=== PATIENT | female | born 1940 | race Caucasian/White ===

== ENCOUNTER 2019-01-19 08:11 | Outpatient (CLI) ==
[2016-05-25 17:54] VITALS: BMI 26.6
== END 2019-01-19 08:12 | disposition home or self-care (01) ==
LOC: LAB 08:11
PROVIDERS: ATTEND Physician Assistant
DX: Z51.81 Encounter for therapeutic drug level monitoring (principal); I73.9 Peripheral vascular disease, unspecified; E03.9 Hypothyroidism, unspecified; E78.5 Hyperlipidemia, unspecified; E55.9 Vitamin D deficiency, unspecified; Z79.899 Other long term (current) drug therapy
CPT/HCPCS: 36415; 80061; 80184; 82306; 83036; 84443; 85025

== ENCOUNTER 2021-07-06 11:17 | Inpatient (IN) ==
--- NOTE | 2021-07-06 11:59 | ED.PDOC ---
General ED Provider: Dr. CRISTIN FELDMAN Chief Complaint: Weakness Stated Complaint: This elderly female patient who 80 years of age was brought to the ER from her residence in [place] by ambulance with CC that she felt weak and ill for the past several days that she fell at home approximate 11 days ago. She fell second time and then was taken to another local hospital and was hospitalized and evaluation revealed that she was positive for COVID-19. She was and sent back home where she has remained progressively weaker and her daughter expressed concern that she is not eating and drinking as she should. She was therefore sent to the resident for evaluation and treatment.Generalized pain involving Head, neck, Rt shoulder, Pelvis including bilateral hips(Rt>Lt and low back. She fell 1 1/2 weeks ago. Was seem at [facility] and discharged to home; c/o weakness Time Seen by Provider: 07/06/21 11:40 Mode of Arrival: Ambulance Information Source: Patient and EMT Exam Limitations: Clinical condition Primary Care Provider: KRYSTAL STRONG Nursing and Triage Documentation Reviewed and Agree: Yes Does patient meet sepsis criteria?: No System Inflammatory Response Syndrome: Not Applicable Sepsis Protocol: For patient's 13 years and over: Temp is 96.8 and below OR 101 and greater Pulse >90 BPM Resp >20/minute Acutely Altered Mental Status Are patient's symptoms suggestive of a new infection, such as: -Pneumonia -Skin, Soft Tissue -Endocarditis -UTI -Bone, Joint Infection -Implantable Device -Acute Abdominal Infection -Wound Infection -Meningitis -Blood Stream Catheter Infection -Unknown Musculoskeletal Complaint Exam Neck Pain Complaint/Exam Mechanism of Injury: Reports Trauma Onset/Duration: 7-10days Symptoms Are: Still present Timing: Intermittent Episodes Lasting: Hours Initial Severity: Moderate Current Severity: Mild Location: Reports Diffuse Character: Reports Aching Aggravating: Reports Movement Alleviating: Reports Position Associated Signs and Symptoms: Reports Weakness; Denies Swelling, Redness, Bruising, Fever, Nuchal rigidity, Headache or Paresthesia Meningitis Risk Factors: Reports None Cervical Spine Injury Risk Factors: Reports None Carotid Bruit Present: No Pain on Passive Flexion: No Positive Kernig's Sign: No ROM Limited In: Present Side bending; Absent Flexion or Extension Tenderness: Present Paraspinal Radiates to: Absent Right arm or Left arm Focal Weakness: Present None Focal Sensory Loss: Reports None Nexus Low Risk Criteria: No post-midline CS tender, No evidence of intoxicat., No Altered LOC and No focal neuro deficit Differential Diagnoses: Strain and Trauma Review of Systems Review Of Systems Constitutional: Reports Malaise and Weakness All Other Systems: Reviewed and Negative [facility] Rep[facility] Menstrual Hx Hysterectomy: Yes Hx Tubal Ligation: No Physical Exam Physical Exam Appearance: Reports Ill-appearing Ill-appearing: Mild Pain Distress: Moderate Eyes: Reports MARIO, EOMI and Conjunctiva clear ENT: Reports Ears normal, Nose normal and Oropharynx normal Neck: Supple Respiratory: Reports Airway patent, Breath sounds clear and Breath sounds equal Cardiovascular: Reports RRR, Pulses normal, No rub and No murmur GI/: Reports Soft, Nontender, No masses, Bowel sounds normal and No Organomegaly Musculoskeletal: Reports Normal strength, ROM intact, No calf tenderness and Edema (Lt ankle) Skin: Reports Warm and Dry Neurological: Reports Sensation intact, Motor intact, Cranial nerves intact, Alert, Oriented, Disoriented and Alert to pain Psychiatric: Reports Affect appropriate, Mood appropriate and Anxious Critical Care Note Critical Care Note Total Critical Care Time (mins): 60 Course Course Hematology/Chemistry: 07/06/21 12:16 07/06/21 12:16 Orders, Labs, Meds: Lab Review 07/06/21 07/06/21 07/06/21 11:30 12:16 12:16 WBC 7.51 RBC 4.10 L Hgb 10.3 L Hct 33.4 L MCV 81.5 MCH 25.1 L MCHC 30.8 L RDW Coeff of Breanne 15.9 H Plt Count 330 Immature Gran % (Auto) 1.1 Neut % (Auto) 74.4 Lymph % (Auto) 12.1 [place] % (Auto) 12.3 H Eos % (Auto) 0.0 Baso % (Auto) 0.1 Neut # (Auto) 5.6 Lymph # (Auto) 0.9 [place] # (Auto) 0.9 Eos # (Auto) 0.0 Baso # (Auto) 0.0 Immature Gran # (Auto) 0.1 Puncture Site R radial Base Excess -2.5 L O2 Saturation 89.5 L ABG pH 7.46 H ABG pCO2 30.0 L ABG pO2 54.0 L* ABG HCO3 21.3 ABG Total CO2 22.2 Joe Test + Hemoglobin 0.8 Oxyhemoglobin 88.2 L Carboxyhemoglobin 2.2 H Total Hemoglobin 10.6 L FiO2 % 21.0 Sodium 138.4 Potassium 4.05 Chloride 107.1 H Carbon Dioxide 20.0 L Anion Gap 15.35 BUN 37.5 H Creatinine 0.63 Estimated GFR (MDRD) 91.00 BUN/Creatinine Ratio 59.52 Glucose 194.1 H Calcium 9.33 Magnesium 1.97 Total Bilirubin 0.53 AST 40.8 H ALT 25.7 Alkaline Phosphatase 111.0 Total Creatine Kinase Troponin I Total Protein 7.28 Albumin 3.45 L Globulin 3.83 Albumin/Globulin Ratio 0.90 07/06/21 07/06/21 16:01 16:37 WBC RBC Hgb Hct MCV MCH MCHC RDW Coeff of Breanne Plt Count Immature Gran % (Auto) Neut % (Auto) Lymph % (Auto) [place] % (Auto) Eos % (Auto) Baso % (Auto) Neut # (Auto) Lymph # (Auto) [place] # (Auto) Eos # (Auto) Baso # (Auto) Immature Gran # (Auto) Puncture Site R brachial Base Excess -1.8 O2 Saturation 95.7 ABG pH 7.53 H* ABG pCO2 25.0 L ABG pO2 70.0 L ABG HCO3 20.9 L ABG Total CO2 21.7 Joe Test + Hemoglobin 1.3 Oxyhemoglobin 92.8 L Carboxyhemoglobin 2.4 H Total Hemoglobin 11.2 L FiO2 % 21.0 Sodium Potassium Chloride Carbon Dioxide Anion Gap BUN Creatinine Estimated GFR (MDRD) BUN/Creatinine Ratio Glucose Calcium Magnesium Total Bilirubin AST ALT Alkaline Phosphatase Total Creatine Kinase 21.5 L Troponin I 0.015 Total Protein Albumin Globulin Albumin/Globulin Ratio Orders Category Date Time Status ADMIT PATIENT INPATIENT .TO [facility] (MONITORED BED) ADMISSION 07/06/21 17:03 Active ABG DRAW REQUEST Stat CARDIO 07/06/21 12:01 Completed ABG DRAW REQUEST Stat CARDIO 07/06/21 15:55 Completed EKG-(ED ONLY) Stat CARDIO 07/06/21 12:00 Completed METERED DOSE INHALATION Routine CARDIO 07/06/21 16:08 Completed OXYGEN Routine CARDIO 07/06/21 16:13 Active ACTIVITY .Complete BR CARE 07/06/21 16:13 Active BLOOD GLUCOSE MONITORING 0630,1100,1700,2100 CARE 07/06/21 16:14 Active INTAKE & OUTPUT Q8HR CARE 07/06/21 16:13 Active TELEMETRY MONITORING TELE CARE 07/06/21 17:03 Active VITAL SIGNS Q4HR CARE 07/06/21 16:13 Active REGULAR DIET DIETARY 07/06/21 Dinner Ordered IV [ED IV/MEDIPORT/POWERPORT] .ONCE EMERGENCY 07/06/21 12:00 Active ABG COOX Stat LAB 07/06/21 11:30 Completed ABG COOX Stat LAB 07/06/21 16:01 Completed BLOOD CULTURE Routine LAB 07/06/21 16:45 Received CBC W/ AUTO DIFF DAILY@0600 LAB 07/07/21 06:00 Ordered CBC W/ AUTO DIFF DAILY@0600 LAB 07/08/21 06:00 Ordered CBC W/ AUTO DIFF Stat LAB 07/06/21 12:16 Completed CMP [COMPREHENSIVE METABOLIC PANEL] Stat LAB 07/06/21 12:16 Completed COMPREHENSIVE METABOLIC PANEL DAILY@0600 LAB 07/07/21 06:00 Ordered COMPREHENSIVE METABOLIC PANEL DAILY@0600 LAB 07/08/21 06:00 Ordered CREATINE KINASE Q8H LAB 07/06/21 16:37 Completed CREATINE KINASE Q8H LAB 07/07/21 06:15 Ordered MAGNESIUM Stat LAB 07/06/21 12:16 Completed RESPIRATORY PANEL 2.1 (PCR) Stat LAB 07/06/21 16:09 Stop Req TROPONIN I Q8H LAB 07/06/21 16:37 Completed TROPONIN I Q8H LAB 07/07/21 06:15 Ordered 0.9 % Sodium Chloride [Saline Flush] MEDS 07/06/21 11:59 Active 1 syr IVF PRN PRN Albuterol Inhaler(with Spacer) [Ventolin Hfa (Per Puff- MEDS 07/06/21 16:07 Discontinued with Spacer)] 2 puff IH ONCE ONE Aspirin [Aspirin Chewable] MEDS 07/07/21 08:30 Active 81 mg PO DAILYWM Enalapril Maleate [Vasotec] MEDS 07/06/21 21:00 Active 20 mg PO BID Hydralazine HCl [Apresoline] MEDS 07/06/21 17:01 Discontinued 25 mg PO ONCE STA Hydrocodone Bit/Acetaminophen [[place] 5-325] MEDS 07/06/21 16:13 Active 1 tab PO Q6H PRN Levothyroxine Sodium [Synthroid] MEDS 07/07/21 06:30 Active 50 mcg PO QDAC Multivitamin [Multivitamin Tablet] MEDS 07/07/21 09:00 Active 1 tab PO DAILY Ondansetron HCl/Pf [Zofran 4 mg/2 ml] MEDS 07/06/21 16:13 Active 4 mg IVP Q6H PRN Phenobarbital MEDS 07/06/21 21:00 Active 64.8 mg PO BID Sodium Chloride 0.9% [Sodium Chloride] 1,000 ml MEDS 07/06/21 17:04 Active IV 70 mls/hr RESUSCITATION STATUS Routine OTHERS 07/06/21 16:13 Ordered CHEST, 1V AP ONLY Stat RADS 07/06/21 17:[address] CERVICAL SPINE W/O CONTRAST Stat RADS 07/06/21 12:[address] HEAD W/O CONTRAST Stat RADS 07/06/21 12:[address] LUMBAR SPINE W/O CONTRAST Stat RADS 07/06/21 12:[address] PELVIS W/O CONTRAST Stat RADS 07/06/21 12:[address] SHOULDER RIGHT W/O CONTRAST Stat RADS 07/06/21 12:02 Completed OT CONSULTATION Routine THERAPIES 07/06/21 Ordered PT CONSULT Routine THERAPIES 07/06/21 Ordered Medications Generic Name Dose Route Start Last Admin Trade Name Freq PRN Reason Stop Dose Admin Hydrocodone Bitart/Acetaminophen 1 tab 07/06/21 16:13 Hydrocodone Bit/Acetaminophen 5/325 Mg Tablet PO Q6H PRN Pain Aspirin 81 mg 07/07/21 08:30 Aspirin 81 Mg Tab.Chew PO DAILYWM SANTA Enalapril Maleate 20 mg 07/06/21 21:00 Enalapril Maleate 20 Mg Tablet PO BID SANTA Sodium Chloride 1,000 mls @ 70 mls/hr 07/06/21 17:04 07/06/21 17:28 Sodium Chloride IV 07/07/21 07:21 70 mls/hr .[id number] STA Administration Levothyroxine Sodium 50 mcg 07/07/21 06:30 Levothyroxine Sodium 50 Mcg Tablet PO QDAC SANTA Multivitamins 1 tab 07/07/21 09:00 Multivitamin 1 Tab PO DAILY SANTA Ondansetron HCl 4 mg 07/06/21 16:13 Ondansetron Hcl/Pf 4 Mg/2 Ml Sdv IVP Q6H PRN Nausea / Vomiting Phenobarbital 64.8 mg 07/06/21 21:00 Phenobarbital 32.4 Mg Tablet PO BID SANTA Sodium Chloride 1 syr 07/06/21 11:59 0.9% Sodium Chloride 10 Ml Disp.Syrin IVF PRN PRN To flush IV Discontinued Medications Generic Name Dose Route Start Last Admin Trade Name Freq PRN Reason Stop Dose Admin Albuterol Sulfate 2 puff 07/06/21 16:07 07/06/21 16:56 Albuterol Sulfate (Ventolin Hfa) 18 Gm 1 Puff With Spacer IH 07/06/21 16:08 2 puff ONCE ONE Administration Hydralazine HCl 25 mg 07/06/21 17:01 07/06/21 17:28 Hydralazine Hcl 50 Mg Tablet PO 07/06/21 17:02 25 mg ONCE STA Administration Vital Signs: Temp Pulse Resp BP Pulse Ox 07/06/21 11:18 97.4 F L 93 H 20 168/63 H 89 L Discharge Plan Discharge Patient Disposition: ADMITTED INPATIENT Discharge Problem: Contusion of multiple sites of head and neck, Cervical muscle strain, Lumbar back pain, Closed sacral fracture, COVID, COPD (chronic obstructive pulmonary disease), Muscle weakness ED Provider: CRISTIN FELDMAN Physician Progress Note: []
[2021-07-06 12:17] LABS: ABG PH 7.46 (7.35-7.45)
[2021-07-06 12:18] LABS: ABG O2 HGB 88.2 % (95-100); BEecf -2.5 (-2.0-3.0); COHb 2.2 (0.5-1.5); HCO3 21.3 (21-28); MetHb 0.8 (0-1.5); TCO2 22.2 (19-24); sO2 89.5 % (94-98); tHb 10.6 g/dl (11.7-17.4)
[2021-07-06 12:21] LABS: BASOPHILS % (AUTO) 0.1 % (0.0-3.0); HEMATOCRIT 33.4 % (37.0-47.0); HEMOGLOBIN 10.3 g/dl (12.0-16.0); IMMATURE GRANULOCYTE # (AUTO) 0.1 (0.0-1.0); IMMATURE GRANULOCYTE % (AUTO) 1.1 % (0.0-5.0); LYMPHOCYTES # (AUTO) 0.9 K/uL (0.60-3.4); LYMPHOCYTES % (AUTO) 12.1 (10.0-50.0); MEAN CORPUSCULAR HEMOGLOBIN 25.1 pg (27.0-31.0); MEAN CORPUSCULAR HGB CONC 30.8 (31.8-35.4); MEAN CORPUSCULAR VOLUME 81.5 fl (81.0-99.0); MONOCYTES # (AUTO) 0.9 K/uL (0.4-2.0); MONOCYTES % (AUTO) 12.3 (0-10); NEUTROPHILS # (AUTO) 5.6 K/ul (2.0-6.9); NEUTROPHILS % (AUTO) 74.4 % (42.2-75.2); PLATELET COUNT 330 10^3/uL (140-440); RDW COEFFICIENT OF VARIATION 15.9 % (11.6-14.8); WHITE BLOOD COUNT 7.51 K/ul (4.6-10.2)
[2021-07-06 12:33] LABS: ALANINE AMINOTRANSFERASE 25.7 U/L (0-35); ALBUMIN 3.45 g/dL (3.5-5.0); ASPARTATE AMINO TRANSFERASE 40.8 U/L (14-36); BILIRUBIN,TOTAL 0.53 mg/dL (0.2-1.3); BLOOD UREA NITROGEN 37.5 mg/dL (7-17); CALCIUM 9.33 mg/dL (8.4-10.2); CHLORIDE 107.1 mmol/L (98-107); CREATININE 0.63 mg/dL (0.60-1.30); GLUCOSE 194.1 mg/dL (74-106); MAGNESIUM 1.97 mg/dL (1.6-2.3); POTASSIUM 4.05 mmol/L (3.5-5.1); SODIUM 138.4 mmol/L (134.5-145); TOTAL PROTEIN 7.28 g/dL (6.3-8.2)
--- NOTE | 2021-07-06 12:48 | CT ---
EXAM: CT head without contrast TECHNIQUE: Noncontrast CT of the head with multiple reformats. HISTORY: Fall, frontal ecchymosis. COMPARISON: None. FINDINGS: Right frontal scalp hematoma. No acute fracture identified. Surgical changes from prior left frontal craniotomy. No evidence of acute intracranial hemorrhage. 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 Calcific atherosclerosis of the carotid siphons and intracranial vertebral arteries. Mild/moderate diffuse brain volume loss with ex vacuo enlargement of the ventricles. Orbits are unremarkable. Mild sinus mucosal changes. IMPRESSION: 1. Frontal scalp hematoma. No acute intracranial hemorrhage or fracture demonstrated. 2. Chronic and postoperative findings as described above. All CT scans are performed using dose optimization techniques as appropriate to the performed exam an d include at least one of the following: Automated exposure control, adjustment of the mA and/or kV according t o size, and the use of iterative reconstruction technique.
--- NOTE | 2021-07-06 13:04 | CT ---
EXAM: CT cervical spine without contrast. HISTORY: Initial presentation for neck injury due to a fall. COMPARISON: None. TECHNIQUE: Multiple axial images of the cervical spine were obtained without intravenous contrast. Images were reformatted in the sagittal and coronal planes. FINDINGS: There is normal curvature and alignment. Vertebral body and intervertebral disc heights a re maintained. No fracture or subluxation is seen. There is no evidence for significant central can al stenosis. Multilevel uncovertebral hypertrophy and facet arthropathy cause multilevel neural fora justina narrowing. The prevertebral soft tissues are unremarkable. Clips in the right neck. Left car otid artery stent. Lung apices clear. IMPRESSION: No acute abnormality of the cervical spine. All CT scans are performed using dose optimization techniques as appropriate to the performed exam an d include at least one of the following: Automated exposure control, adjustment of the mA and/or kV according t o size, and the use of iterative reconstruction technique.
--- NOTE | 2021-07-06 13:08 | CT ---
EXAM: CT of the right shoulder without contrast TECHNIQUE: CT of the right shoulder was performed without IV contrast. Multiplanar reformats were m jewell. HISTORY: Fall, right shoulder pain. COMPARISON: None. FINDINGS: No acute fracture or dislocation/subluxation of the right shoulder. Moderate degenerative changes of the acromioclavicular joint and glenohumeral joint. Nondisplaced right lateral 2nd rib fracture. Imaged right lung shows mild dependent opacities likely due to atelectasis. Apical subpleural cystic changes are noted bilaterally. There is now visible pneumothorax on the imaged portion of the right pleural space. No large hematoma in the soft tissues. Calcific atherosclerosis of the imaged aortic arch. IMPRESSION: 1. No fracture or dislocation of the right shoulder. 2. Nondisplaced right second rib fracture. All CT scans are performed using dose optimization techniques as appropriate to the performed exam an d include at least one of the following: Automated exposure control, adjustment of the mA and/or kV according t o size, and the use of iterative reconstruction technique.
--- NOTE | 2021-07-06 13:11 | CT ---
EXAM: CT lumbar spine without contrast. HISTORY: Initial presentation for back pain following a fall. COMPARISON: Abdominal CT 05/25/2016. TECHNIQUE: Multiple axial images of the lumbar spine were obtained without intravenous contrast. Im ages were reformatted in the sagittal and coronal planes. FINDINGS: There is approximately 0.2 cm retrolisthesis L1 on L2. Otherwise, the normal curvature an d alignment are maintained. Vertebral body heights are normal. Moderate loss of disc height at L4-5 and mild loss of disc height at L1-2. Otherwise, disc heights are normal. No fracture or subluxati on is seen. Disc osteophyte formation, facet arthropathy cause mild central canal stenosis at L3-4. Multilevel neural foraminal narrowing due to the same findings, greatest at L1-2 and L4-5 which are mild-moderate and generally mild elsewhere. Adjacent soft tissues are unremarkable. Urinary bladder distended although incompletely imaged. Diverticulosis noted. Atherosclerotic calcifications are p resent. IMPRESSION: 1. No acute abnormality of the lumbar spine. 2. Degenerative changes as described. 3. Distended urinary bladder. Correlate for urinary retention. All CT scans are performed using dose optimization techniques as appropriate to the performed exam an d include at least one of the following: Automated exposure control, adjustment of the mA and/or kV according t o size, and the use of iterative reconstruction technique.
--- NOTE | 2021-07-06 13:14 | CT ---
EXAM: CT of the pelvis without contrast TECHNIQUE: CT of the pelvis was performed without IV contrast. Multiplanar reformats were made. HISTORY: Pelvic and bilateral hip pain, trauma. COMPARISON: None. FINDINGS: There is subtle buckling of the S4 segment of the sacrum suggesting a a nondisplaced fracture with ad jacent mild presacral edema. Otherwise no hip or pelvic fracture is demonstrated. Urinary bladder appears distended without wall thickening. Colonic diverticulosis. Mild scattered c alcific atherosclerosis in the major arteries prudent no pelvic sidewall hematoma or free fluid. Post hysterectomy. IMPRESSION: 1. Subtle buckling of the S4 segment of the sacrum suspicious for nondisplaced fracture. 2. Urinary bladder appears distended, suggesting urinary retention. 3. Colonic diverticulosis All CT scans are performed using dose optimization techniques as appropriate to the performed exam an d include at least one of the following: Automated exposure control, adjustment of the mA and/or kV according t o size, and the use of iterative reconstruction technique.
[2021-07-06] MEDS ORDERED: VENTOLIN HFA (PER PUFF-WITH SPACER) IH ONE (16:07)
[2021-07-06] MEDS ORDERED: ZOFRAN 4 MG/2 ML IVP PRN (16:13)
[2021-07-06] MEDS ORDERED: SODIUM CHLORIDE 0.9%-KCL 20 MEQ 1,000 ML IV SCH (16:30)
[2021-07-06 16:53] LABS: ABG PH 7.53 (7.35-7.45)
[2021-07-06 16:54] LABS: ABG O2 HGB 92.8 % (95-100); BEecf -1.8 (-2.0-3.0); COHb 2.4 (0.5-1.5); HCO3 20.9 (21-28); MetHb 1.3 (0-1.5); TCO2 21.7 (19-24); sO2 95.7 % (94-98); tHb 11.2 g/dl (11.7-17.4)
[2021-07-06] MEDS ORDERED: APRESOLINE PO STA (17:01)
[2021-07-06 17:02] LABS: CREATINE KINASE 21.5 U/L (30-135)
[2021-07-06] MEDS ORDERED: SODIUM CHLORIDE 1,000 ML IV STA (17:04)
[2021-07-06 17:15] LABS: TROPONIN I 0.015 ng/ml (0.0000-0.120)
--- NOTE | 2021-07-06 17:41 | DI ---
EXAM: Chest radiograph single view 07/06/2021 HISTORY: Fall. COVID-19 positive. COMPARISON: None. FINDINGS: The trachea is midline. The cardiomediastinal silhouette is prominent which can be exacerbated by AP technique. There is subtle opacity in the left lower lung zone may represent pneumonia. Blunting o f the left costophrenic angle concerning for small pleural effusion. The osseous structures are inta ct. IMPRESSION: Possible small left pleural effusion. There is subtle opacity in the left lower lung zone concerning for pneumonia.
[2021-07-06] MEDS: NORCO 5-325 PO PRN (19:31)
[2021-07-06 20:47] VITALS: BMI 35.4
[2021-07-06] MEDS: VASOTEC PO SCH (21:00)
[2021-07-06] MEDS: PHENOBARBITAL PO SCH (21:01)
[2021-07-07] MEDS ORDERED: MORPHINE 4 MG/ML SYRINGE IVP STA (00:27)
[2021-07-07] MEDS: SYNTHROID PO SCH (05:29)
[2021-07-07 06:17] LABS: HEMOGLOBIN 9.9 g/dl (12.0-16.0); MEAN CORPUSCULAR HEMOGLOBIN 26.1 pg (27.0-31.0); MEAN CORPUSCULAR HGB CONC 31.9 (31.8-35.4); MEAN CORPUSCULAR VOLUME 81.8 fl (81.0-99.0); PLATELET COUNT 338 10^3/uL (140-440); RDW COEFFICIENT OF VARIATION 15.9 % (11.6-14.8); RED BLOOD COUNT 3.79 10^6/ul (4.20-5.40); WHITE BLOOD COUNT 5.77 K/ul (4.6-10.2)
[2021-07-07 06:28] LABS: ALANINE AMINOTRANSFERASE 18.4 U/L (0-35); ALBUMIN 3.04 g/dL (3.5-5.0); ALKALINE PHOSPHATASE 95.5 U/L (53-141); ASPARTATE AMINO TRANSFERASE 31.7 U/L (14-36); BILIRUBIN,TOTAL 0.45 mg/dL (0.2-1.3); BLOOD UREA NITROGEN 20.4 mg/dL (7-17); CALCIUM 8.46 mg/dL (8.4-10.2); CARBON DIOXIDE 22.8 mmol/L (22-30.0); CHLORIDE 109.3 mmol/L (98-107); CREATININE 0.48 mg/dL (0.60-1.30); GLUCOSE 168.8 mg/dL (74-106); POTASSIUM 3.52 mmol/L (3.5-5.1); SODIUM 140.9 mmol/L (134.5-145); TOTAL PROTEIN 6.62 g/dL (6.3-8.2)
[2021-07-07 06:36] LABS: CREATINE KINASE < 20.0 U/L (30-135)
[2021-07-07 06:37] LABS: ANISOCYTOSIS NOT PRESENT (NOT PRESENT)
[2021-07-07 06:39] LABS: TROPONIN I 0.026 ng/ml (0.0000-0.120)
[2021-07-07] MEDS: MULTIVITAMIN TABLET PO SCH (08:43)
[2021-07-07] MEDS: ASPIRIN CHEWABLE PO SCH (08:43)
[2021-07-07] MEDS: VASOTEC PO SCH ×2 (08:43→20:14)
[2021-07-07] MEDS: PHENOBARBITAL PO SCH ×2 (08:43→20:14)
[2021-07-07] MEDS: NORCO 5-325 PO PRN (08:53)
--- NOTE | 2021-07-07 15:33 | PCM.PROG ---
Date Seen by Provider: 07/07/21 Time Seen by Provider: 11:00 Subjective: Pt is still very weak and somewhat SOB. She denies any pain of fever. She does wish to go home. Objective: Vitals: T=97.7 F, P=84, R=20, RG=838/68, SPO2=98 HEENT: unremarkable Neck: supple Lungs: Clear CVS: RRR Abdomen: soft, non-tender Neurological: General weakness without focal weakness Plan: Pt does qualify for home O2 but here she has been very weak and unable to stand on her own even to go to the bathroom. At this point, she may need rehabilitation placement so casemanagement will get involved. I have ordered PT/OT and we will monitor her for another night. She is on her last day of Covid quarantine and had had Remdesivir.
[2021-07-07] MEDS: SODIUM CHLORIDE 1,000 ML IV SCH (22:27)
[2021-07-07] MEDS: TYLENOL PO PRN (22:27)
[2021-07-08] MEDS ORDERED: HYDRALAZINE HCL IVP ONE (01:05)
[2021-07-08] MEDS ORDERED: APRESOLINE ONE (01:49)
[2021-07-08] MEDS ORDERED: HYDRALAZINE HCL ONE (01:56)
[2021-07-08] MEDS: TYLENOL PO PRN ×2 (02:38→23:50)
[2021-07-08 05:06] LABS: BASOPHILS % (AUTO) 0.2 % (0.0-3.0); EOSINOPHILS % (AUTO) 0.5 % (0.0-7.0); HEMATOCRIT 30.7 % (37.0-47.0); HEMOGLOBIN 9.6 g/dl (12.0-16.0); IMMATURE GRANULOCYTE # (AUTO) 0.1 (0.0-1.0); IMMATURE GRANULOCYTE % (AUTO) 1.3 % (0.0-5.0); LYMPHOCYTES # (AUTO) 0.9 K/uL (0.60-3.4); LYMPHOCYTES % (AUTO) 14.8 (10.0-50.0); MEAN CORPUSCULAR HEMOGLOBIN 25.6 pg (27.0-31.0); MEAN CORPUSCULAR HGB CONC 31.3 (31.8-35.4); MEAN CORPUSCULAR VOLUME 81.9 fl (81.0-99.0); MONOCYTES # (AUTO) 0.9 K/uL (0.4-2.0); NEUTROPHILS # (AUTO) 4.4 K/ul (2.0-6.9); NEUTROPHILS % (AUTO) 69.2 % (42.2-75.2); PLATELET COUNT 303 10^3/uL (140-440); RDW COEFFICIENT OF VARIATION 15.9 % (11.6-14.8); RED BLOOD COUNT 3.75 10^6/ul (4.20-5.40); WHITE BLOOD COUNT 6.34 K/ul (4.6-10.2)
[2021-07-08 05:17] LABS: ALBUMIN 3.02 g/dL (3.5-5.0); ALKALINE PHOSPHATASE 100.2 U/L (53-141); ASPARTATE AMINO TRANSFERASE 32.8 U/L (14-36); BILIRUBIN,TOTAL 0.48 mg/dL (0.2-1.3); BLOOD UREA NITROGEN 22.3 mg/dL (7-17); CALCIUM 8.47 mg/dL (8.4-10.2); CARBON DIOXIDE 23.5 mmol/L (22-30.0); CREATININE 0.46 mg/dL (0.60-1.30); GLUCOSE 156.3 mg/dL (74-106); POTASSIUM 3.3 mmol/L (3.5-5.1); SODIUM 141.9 mmol/L (134.5-145); TOTAL PROTEIN 6.62 g/dL (6.3-8.2)
[2021-07-08] MEDS: SYNTHROID PO SCH (05:35)
[2021-07-08] MEDS: NORCO 5-325 PO PRN ×2 (06:08→19:10)
[2021-07-08] MEDS: K-DUR PO SCH ×2 (09:01→17:24)
[2021-07-08] MEDS: VASOTEC PO SCH ×2 (09:01→20:16)
[2021-07-08] MEDS: PHENOBARBITAL PO SCH ×2 (09:01→20:16)
[2021-07-08] MEDS: ASPIRIN CHEWABLE PO SCH (09:01)
[2021-07-08] MEDS: MAG-OX PO SCH (09:01)
[2021-07-08] MEDS: MULTIVITAMIN TABLET PO SCH (09:01)
--- NOTE | 2021-07-08 12:16 | RS.BEDDYS ---
Subjective Date of Evaluation: 07/08/21 Date of Onset/Injury/Change in Status: 07/06/21 Diagnosis: suspected pneumonia; residual COVID; kidney infection Current Level of Function: This 80 year old female was referred for a bedside swallow evaluation to assess pt risks for penetration/aspiration and determine safer and least restrictive diet and liquid. Pt was transferred from [facility] s/p fall and recent COVID on 06/26/21, kidney infection and UTI. CXR revealed potential LLL pneumonia. Recent CT was negative for CVA, with hx of old infarct. At this time, pt is reported with poor PO intake and has only consumed small sips of thin liquids and pudding texture with nursing for medication administration. Pt has a cough at rest and intermittently with PO trials. Pt is on 3L nasal cannula and continues to require oxygen to maintain O2 levels. Nursing reported minimal change with pt's alertness and appetite and recommends SPT evaluate at this time. Current Diet: Regular diet; thin liquids; medications crushed in pudding/applesauce Current Subjective/complaints:: Pt upright in recliner upon CORPORATE LOGISTICS MANAGER entry. She was asleep, but woke to verbal stimuli. Pt responded to simple y/n questions. Pt volunteered complaints with pain in right leg and general weak feeling. Pt was cooperative to trial various textures and consistencies with CORPORATE LOGISTICS MANAGER. Pt required consistent verbal/tactile cues to maintain alertness during evaluation. Medical History Comments:: S/p fall with hematoma, hx of craniotomy, hx of COVID-19, kidney infection, UTI. Hx Home Medications: Refer to medications for complete current list. Patient's Goals: None stated; agreed to participate in SPT to improve swallow function. General Information - General Patient Orientation: Person Ability to Follow Directions: Fair Oral Expression Ability: Mild Impairment (Minimal verbal responses with medical questions) Oral-Facial Assessment - Dental/Labial Mouth Occlusion: Normal Lips Comment: Mod-severe weakness with labial seal; no strength to pull liquid from straw - Lingual Protrusion: Weak Retraction: Weak Comments: Lingual function presented with moderate weakness as evidenced by decreased lingual manipulation with boli presentations, poor bolus coordination, and delayed A-P transfer with bolus. - Comments/Additional Info. Comments:: CORPORATE LOGISTICS MANAGER will continue to assess oral cavity with oral motor examination and oral mechanism examination. Food Presentation - Solids Food Presented: Pureed (three trials presented 1/2 tsp presentation to midline. Pt did not attempt to self-feed.) Behaviors/Comments: CORPORATE LOGISTICS MANAGER presented spoon initial trial. Pt tolerated puree texture with minimal difficulty for transfer. Second trial presented spoon to pt; she did not attempt to place spoon to mouth or feed self. Pt tolerated consecutive trials fed by CORPORATE LOGISTICS MANAGER with delay in swallow initiation, audible swallow response, and multiple swallows to clear texture. Pt had clear voicing post trials. Food Presented: Mechanical Soft (Minced and moist texture presented. 1/4 tsp size. Pt required max cues for mastication process.) Behaviors/Comments: 1/4 tsp presented to pt. Pt was alert and CORPORATE LOGISTICS MANAGER requested pt look at presented texture. Pt was aware of texxture in oral cavity. She held bite in front of oral cavity; max cues provided for pt to masticate. Pt demonstrated vertical chew motion and swallow response. Pt opened mouth post swallow, and full bite size was present. Pt provided tactile cue to move texture to lingual surface and swallow. She completed task with effort to coordinate, delay in a-p transfer, and multiple swallow responses. No overt s/s of aspiration noted. - Liquids Liquid Presented: Thin (via cup; via tsp; ice chips. Pt had immediate coughing 1x and delayed throat clears.) Behaviors/Comments: Ice chips presented. Pt manipulated one ice chip and allowed one to melt. Pt demonstrated general weakness and decreased awareness to ice chip; required a verbal cue to swallow liquids. Thin liquids presented. Pt demonstrated delayed swallow initiation in duration of 2-3 seconds. She presented with audible swallow, laryngeal burping, and multiple swallow attempts. Pt had decreased LE for airway protection. Pt demonstrated 1x immediate cough response and 2x delayed throat clears. Delayed coughing noted post thin liquid trials. Liquid Presented: Lupus (Via tsp and open cup. No overt s/s of aspiration.) Behaviors/Comments: CORPORATE LOGISTICS MANAGER presented several trials via open cup. Pt demonstrated no deficits with mildly thick-nectar liquids. - Recommendations: Dysphagia Evaluation Dietary Recommendations: Puree, Mildly Thick - Lupus Dysphagia Swallow Precautions/Strategies: Sitting Upright (90 deg), Double Swallow, No Straw, Liquids from Cup (Ok from cup with assistance to hold cup and monitor for labial spillage out of sides of mouth.), Liquids from Spoon (1/2 tsp for sips; 1 tsp with alternation of diet texture.) Comments:: CORPORATE LOGISTICS MANAGER recommends pt be total feed. 10-15 bites and assess for potential swallow fatigue. Provide max cues to increase alertness for any PO trials. Discuss with pt food/liquid presented. Watch for swallow response and cue pt to additional swallow; intermittent voicing checks to monitor for wet vocal quality; use cold drinks to stimulate swallow response. - Summary Dysphagia Evaluation Summary: Pt presented with severe oral phase deficits and mild-moderate pharyngeal phase deficits. Pt presents with oropharyngeal phase dysphagia as characterized by mastication process, bolus formation and coordination, decreased oral sensation, decreased lingual and labial function, delayed swallow initiation, and decreased LE for airway protection. Pt also dem onstrated overt s/s of aspiration with thin liquids. At this time, CORPORATE LOGISTICS MANAGER recommends pt trial puree diet texture and mildly thick-nectar liquids. TOTAL FEED. Encourage PO trials to build swallow endurance and reduce swallow atrophy. Meds crushed in pudding/applesauce. Provide oral care routine prior to laying flat in bed. Further Therapy Indicated?: Yes Comments: Would recommend pt participate in SPT or swing bed as major decline with swallow function has been observed. Rehab Potential: Good (Pt cooperative with all presented therapy tasks.) Functional Reporting G Codes: n/a Severity Impairment Rationale: n/a Short Term Goals Goal #1: Pt tolerate puree diet texture w/o overt s/s of asp. Goal #2: Pt tolerate mildly thick nectar liquids w/o overt s/s of asp Goal #3: Complete LE exercises on 100% of opportunities. Goal #4: Complete thermal stimulation to reduce swallow delay 100% of opportunities. Goal #5: Re-assessment of swallow function for potential diet upgrade Goal #6: Complete OMEs 100% of opportunities. Group Home Goals Goal #1: Pt tolerate safer and least restrictive diet w/ min to no s/s of asp. Plan Duration of Treatment: 1 Week Frequency of Treatment: 2-3x/week Anticipated Discharge Destination: Home Comments: If pt d/c's prior to CORPORATE LOGISTICS MANAGER return; diet and liquid education will need to be provided to pt's caregiver. - Treatment Code (1) Oropharyngeal dysphagia Code(s): R13.12 - Dysphagia, oropharyngeal phase
[2021-07-08] MEDS: SODIUM CHLORIDE 1,000 ML IV SCH (13:18)
[2021-07-08] MEDS: NYSTOP POWDER TP SCH ×2 (17:23→20:15)
--- NOTE | 2021-07-08 19:45 | PCM.PROG ---
Date Seen by Provider: 07/08/21 Time Seen by Provider: 08:30 Subjective: Sleeping but awakens and is OX3. States she is feeling better. Awaiting breakfast Objective: Vitals: T=98.7 F, P=88, R=20, GD=439/67, SPO2=95 HEENT: Clear-large echmoses lt periorbital Neck: Suppler Lungs: CTA-AF CVS: HR RRR Abdomen: Soft non tender Extremities: Neg edema Neurological: NO acute findings Skin: W/D Lab/Tests/Diagnostic Imaging: [] (1) Oropharyngeal dysphagia: Status: Acute Code(s): R13.12 - Dysphagia, oropharyngeal phase SNOMED Code(s): 98743567 (2) Lumbar back pain: Status: Acute Code(s): M54.50 - Low back pain, unspecified SNOMED Code(s): 581161885 (3) COPD (chronic obstructive pulmonary disease): Status: Acute Code(s): J44.9 - Chronic obstructive pulmonary disease, unspecified SNOMED Code(s): 40552190 (4) Closed sacral fracture: Status: Acute Code(s): S32.10XA - Unspecified fracture of sacrum, initial encounter for closed fracture SNOMED Code(s): 890318003 (5) Hypokalemia: Status: Acute Code(s): E87.6 - Hypokalemia SNOMED Code(s): 47811323 Assessment: Supplemental dosing plus add MG++ Plan: Encourage up activity today; evaluation for PT -home PT next saturday Repeat lab in am
[2021-07-09] MEDS: NORCO 5-325 PO PRN ×2 (01:31→18:31)
[2021-07-09 04:58] LABS: BASOPHILS % (AUTO) 0.3 % (0.0-3.0); EOSINOPHILS # (AUTO) 0.1 K/ul (0.0-0.7); EOSINOPHILS % (AUTO) 1.2 % (0.0-7.0); HEMATOCRIT 29.9 % (37.0-47.0); HEMOGLOBIN 9.1 g/dl (12.0-16.0); IMMATURE GRANULOCYTE # (AUTO) 0.1 (0.0-1.0); IMMATURE GRANULOCYTE % (AUTO) 1.2 % (0.0-5.0); LYMPHOCYTES # (AUTO) 0.9 K/uL (0.60-3.4); LYMPHOCYTES % (AUTO) 14.1 (10.0-50.0); MEAN CORPUSCULAR HEMOGLOBIN 25.1 pg (27.0-31.0); MEAN CORPUSCULAR HGB CONC 30.4 (31.8-35.4); MEAN CORPUSCULAR VOLUME 82.4 fl (81.0-99.0); MONOCYTES # (AUTO) 0.9 K/uL (0.4-2.0); MONOCYTES % (AUTO) 12.9 (0-10); NEUTROPHILS # (AUTO) 4.6 K/ul (2.0-6.9); NEUTROPHILS % (AUTO) 70.3 % (42.2-75.2); PLATELET COUNT 309 10^3/uL (140-440); RDW COEFFICIENT OF VARIATION 15.8 % (11.6-14.8); RED BLOOD COUNT 3.63 10^6/ul (4.20-5.40)
[2021-07-09 05:09] LABS: ALBUMIN 2.89 g/dL (3.5-5.0); ASPARTATE AMINO TRANSFERASE 31.1 U/L (14-36); BILIRUBIN,TOTAL 0.44 mg/dL (0.2-1.3); BLOOD UREA NITROGEN 18.4 mg/dL (7-17); CALCIUM 8.32 mg/dL (8.4-10.2); CARBON DIOXIDE 24.4 mmol/L (22-30.0); CHLORIDE 108.5 mmol/L (98-107); CREATININE 0.53 mg/dL (0.60-1.30); GLUCOSE 129.3 mg/dL (74-106); MAGNESIUM 1.57 mg/dL (1.6-2.3); POTASSIUM 3.71 mmol/L (3.5-5.1); SODIUM 138.2 mmol/L (134.5-145); TOTAL PROTEIN 6.37 g/dL (6.3-8.2)
[2021-07-09 05:14] LABS: IRON 17.7 ug/dL (37-170)
[2021-07-09] MEDS: SYNTHROID PO SCH (05:33)
[2021-07-09] MEDS: TYLENOL PO PRN ×2 (05:33→22:06)
[2021-07-09 06:15] LABS: FOLATE 17.4 ng/mL
[2021-07-09] MEDS ORDERED: TORADOL IVP ONE (09:23)
[2021-07-09] MEDS ORDERED: LEVAQUIN 500 MG/100 ML D5W 500 MG/100 ML BAG IV SCH (09:30)
[2021-07-09] MEDS: MULTIVITAMIN TABLET PO SCH (09:41)
[2021-07-09] MEDS: VASOTEC PO SCH ×2 (09:42→20:10)
[2021-07-09] MEDS: ASPIRIN CHEWABLE PO SCH (09:42)
[2021-07-09] MEDS: PHENOBARBITAL PO SCH ×2 (09:42→20:10)
[2021-07-09] MEDS: MAG-OX PO SCH (09:42)
[2021-07-09] MEDS: K-DUR PO SCH ×2 (09:42→17:18)
[2021-07-09] MEDS: NYSTOP POWDER TP SCH ×3 (09:46→20:10)
--- NOTE | 2021-07-09 10:01 | DI ---
EXAM: Chest one view, frontal view only. HISTORY: Cough, chest congestion. COMPARISON: 07/06/2021. FINDINGS: The heart size is normal. There is no pulmonary vascular congestion. Stable left basilar consolidation. Mild right basilar consolidation is probably stable in retrospect, better seen curre ntly due to differences in positioning. No pleural effusion or pneumothorax is seen. No acute osseo us abnormality is identified. IMPRESSION: Bilateral pneumonia, which is probably unchanged.
--- NOTE | 2021-07-09 13:57 | PCM.PROG ---
pt vss, lungs clear, RRR, abdomen soft nondistended, pulses intact, cxr today bilateral pneumonia, starting Levaquin, toradol iv x one dose for pain control, pt still oxygen dependent at 3 liters NC, await PT eval tomorrow, care to 06/1021 evening doctor at 19:00
[2021-07-09 16:01] LABS: BILIRUBIN,URINE Negative (NEGATIVE); CLARITY,URINE Clear (CLEAR); COLOR,URINE Yellow (YELLOW); GLUCOSE, URINE (UA) Negative (NEGATIVE); KETONES,URINE Negative (NEGATIVE); LEUKOCYTE ESTERASE ,URINE Negative (NEGATIVE); NITRITE,URINE Negative (NEGATIVE); PROTEIN,URINE Trace (NEGATIVE); URINE, BLOOD Negative (NEGATIVE); UROBILINOGEN,URINE 0.2 (0.2)
[2021-07-09 16:03] LABS: BACTERIA,URINE TRACE (NOT PRESENT); URINE WBC, MICROSCOPIC 0-2 (0-2)
--- NOTE | 2021-07-09 19:02 | PCM.PROG ---
care to Dr Tom at 19:00
[2021-07-10] MEDS: NORCO 5-325 PO PRN ×4 (00:23→23:09)
[2021-07-10] MEDS: SYNTHROID PO SCH (05:31)
[2021-07-10] MEDS: LEVAQUIN 750 MG/150 ML D5W 750 MG/150 ML BAG IV SCH (08:23)
[2021-07-10] MEDS: MAG-OX PO SCH (08:23)
[2021-07-10] MEDS: NYSTOP POWDER TP SCH ×3 (08:23→20:22)
[2021-07-10] MEDS: ASPIRIN CHEWABLE PO SCH (08:23)
[2021-07-10] MEDS: PHENOBARBITAL PO SCH ×2 (08:24→20:19)
[2021-07-10] MEDS: MULTIVITAMIN TABLET PO SCH (08:24)
[2021-07-10] MEDS: K-DUR PO SCH ×2 (08:24→16:25)
[2021-07-10] MEDS: VASOTEC PO SCH ×2 (08:24→20:19)
--- NOTE | 2021-07-10 09:11 | PCM.PROG ---
pt alert, +cough, still oxygen dependent, on 3 liters NC O2sat 92 to 95% and other vitals stable, continues daily levaquin for pneumonia, deconditioning to be evaluated by PT today, will restart IV NS 75cc/hr due to poor appetite, pt is dnr, care to Dr Negro malone at 19:00
[2021-07-10 09:45] LABS: BASOPHILS % (AUTO) 0.3 % (0.0-3.0); EOSINOPHILS # (AUTO) 0.1 K/ul (0.0-0.7); EOSINOPHILS % (AUTO) 0.9 % (0.0-7.0); HEMATOCRIT 30.4 % (37.0-47.0); HEMOGLOBIN 9.4 g/dl (12.0-16.0); IMMATURE GRANULOCYTE # (AUTO) 0.1 (0.0-1.0); IMMATURE GRANULOCYTE % (AUTO) 1.3 % (0.0-5.0); LYMPHOCYTES # (AUTO) 0.9 K/uL (0.60-3.4); LYMPHOCYTES % (AUTO) 11.4 (10.0-50.0); MEAN CORPUSCULAR HEMOGLOBIN 25.3 pg (27.0-31.0); MEAN CORPUSCULAR HGB CONC 30.9 (31.8-35.4); MEAN CORPUSCULAR VOLUME 81.7 fl (81.0-99.0); MONOCYTES # (AUTO) 0.8 K/uL (0.4-2.0); MONOCYTES % (AUTO) 10.3 (0-10); NEUTROPHILS # (AUTO) 5.9 K/ul (2.0-6.9); NEUTROPHILS % (AUTO) 75.8 % (42.2-75.2); PLATELET COUNT 339 10^3/uL (140-440); RDW COEFFICIENT OF VARIATION 15.6 % (11.6-14.8); RED BLOOD COUNT 3.72 10^6/ul (4.20-5.40); WHITE BLOOD COUNT 7.83 K/ul (4.6-10.2)
[2021-07-10 09:58] LABS: BLOOD UREA NITROGEN 12.2 mg/dL (7-17); CALCIUM 8.46 mg/dL (8.4-10.2); CARBON DIOXIDE 22.8 mmol/L (22-30.0); CHLORIDE 106.6 mmol/L (98-107); CREATININE 0.48 mg/dL (0.60-1.30); GLUCOSE 178.9 mg/dL (74-106); POTASSIUM 4.39 mmol/L (3.5-5.1); SODIUM 136.2 mmol/L (134.5-145)
[2021-07-10] MEDS: SODIUM CHLORIDE 1,000 ML IV SCH ×2 (10:12→22:41)
--- NOTE | 2021-07-10 10:12 | RS.PTINEVL ---
Subjective - Patient information Date of Evaluation: 07/10/21 Date of Arrival on Unit: 07/06/21 Admitted From:: Home Diagnosis: B pneumonia, COVID + 06/26/21 Usual Living Arrangement: With Others Living Arrangement Comments: Lives with dtr Home Environment: House Medical History: Hypertension, COPD, Diabetes, Arthritis Medical History Comments:: hx of seizure, [place], closed sacral fx, R 2nd rib fx,. hx of 2 falls in past 2 weeks Surgical History: Knee Replacement (R TKR), Cervical Spine (x 4) Surgical History Comments:: brain surgery due to clot Medications: see chart Subjective Information/ Patient Comments:: pt states that she wants to lay back down. pt only answers some questions. pt oriented to person and place. - Level of function Abilities prior to this admission: prior to illness pt amb with rwx. Since illness and 2 falls pt has had to sleep in lift chair. Current Level of Function: Dependent Current Equipment Used at Home: walker, bedside commode, pulse ox, glucometer, lift chair Pain Assessement - Location R LE Pain Behavior: Crying, Facial Grimacing Effects of Pain: pt yells with pain when moving RLE. Notified nursing. Interventions - Objective Patient Orientation: Person, Place Current Interventions: IV's, Oxygen (3 liters), Telemetry Observation: bruising noted to L eye, forehead, slight erythema noted R ankle Range of Motion - ROM Right Upper Extremity AROM: WFL's Left Upper Extremity AROM: WFL's Right Lower Extremity AROM: WFL's (pt c/o pain with movement of RLE.) Left Lower Extremity AROM: WFL's Muscle Strength - Muscle Strength Right Upper Extremity Strength: Severe Weakness (grossly 3/5) Left Upper Extremity Strength: Severe Weakness (grossly 3/5) Right Lower Extremity Strength: Severe Weakness (hip flex 3/5, knee flex/ext 3/5, ankle DF/PF 3/5) Left Lower Extremity Strength: Severe Weakness (hip flex 3/5, knee flex/ext 3/5, ankle DF/PF 3/5) Sensation - Sensation Right Upper Extremity Sensation: Intact/Normal Left Upper Extremity Sensation: Intact/Normal Right Lower Extremity Sensation: Intact/Normal Left Lower Extremity Sensation: Intact/Normal Palpation Palpation Findings: Tenderness Comments:: tenderness to palpation RLE. Balance - Sitting Balance and Reactions Static Sitting Balance: Fair Dynamic Sitting Balance: Poor Sitting Equilibrium Reactions: Delayed Left, Delayed Right Sitting Protective Reactions: Delayed Left, Delayed Right - Standing Balance and Reactions Static Standing Balance: Poor Dynamic Standing Balance: Poor Standing Equilibrium Reactions: Delayed Left, Delayed Right Standing Protective Reactions: Delayed Left, Delayed Right Functional Mobility - Bed Mobility Rolling R/L: Max Assist, 1 person assist Supine to Sit: Max Assist, 2 person assist Sit to Supine: Max Assist, 2 person assist - Transfers Comments:: pt unable to stand. pt required max of 2 for squat pivot bed to chair. pt did not initiate any attempt to stand. - Safety Awareness Safety Awareness: Poor MARK INDEX SCORE: n/a Ambulation - Ambulation Ambulation Comments: pt unable to amb. Treatment time - Time with patient Length of Evaluation: 21 Total treatment time: 38 Patient Education - Education Patient Education: Activity Modification, Education of Plan of Care Teaching Recipient: Patient Teaching Methods: Discussion Comments: attempted to discuss POC, however unsure what pt understood, due to pt only answers occasionally Assessment - Assessment Problem List:: Decreased level of function, Requires training/education, Decreased safety/Risk of falls, Weakness, Pain limits previous level of function, Cognitive status limits abilities Rehab Potential: Fair Further Therapy Indicated?: Yes Candidate for Swing Bed for Therapy Services?: Feel pt may not be a candidate for swing bed for therapy due to low endurance. Feel pt may benefit from PT in LTC setting to allow more time for recovery. Evaluation Complexity: HISTORY: Medium, EXAM OF BODY SYSTEMS: Medium, CLINICAL PRESENTATION: Medium, CLINICAL DECISION MAKING: Medium Patient's Goal(s): pt unable to express goals. Short Term Goals GOAL #1: pt demonstrate rolling with bedrails mod x 1 Goal to be met by: 07/12/21 GOAL #2: Transfer sup to/from sit mod x 2 Goal to be met by: 07/12/21 GOAL #3: pt able to maintain sitting balance against min challenges. Goal to be met by: 07/12/21 GOAL #4: pt transfer bed to chair mod x 2 Goal to be met by: 07/12/21 GOAL #5: Sit to stand max of 2 Goal to be met by: 07/12/21 Jail Goals GOAL #1: pt demonstrate rolling with min to mod x 1 Goal to be met by: 07/14/21 GOAL #2: Transfer sup to/from sit to/from stand mod x 1 Goal to be met by: 07/14/21 GOAL #3: pt amb 25ft with rwx mod x 2 Goal to be met by: 07/14/21 Plan Plan of Care: Therapeutic EX, Therapeutic Activity Other:: progress to gait training as able Frequency of Treatment: 1-2 X day, as tolerated Duration of Treatment: 4-5 days Anticipated Discharge Destination: undetermined Treatment Diagnosis (ICD 10 Codes): Covid history U071.1. impaired balance R 26.81. weakness M62.81. falls Z91.81 Has the Physician been added for Co-signature?: Yes
--- NOTE | 2021-07-10 10:27 | RS.OTINEVL ---
Subjective - Patient information Date of Evaluation: 07/10/21 Date of Arrival on Unit: 07/06/21 Admitted From:: Home Diagnosis: Respiratory insuff., Hx of Covid 19, PRECAUTIONS: Fall risk, not able to stand without max Assist Usual Living Arrangement: With Others Living Arrangement Comments: Lives with dtr Home Environment: House Medical History: Hypertension, COPD, Diabetes, Arthritis Medical History Comments:: hx of seizure, [place], closed sacral fx, R 2nd rib fx,. hx of 2 falls in past 2 weeks Surgical History: Knee Replacement (R TKR), Cervical Spine (x 4) Surgical History Comments:: brain surgery due to clot Medications: see chart Subjective Information/ Patient Comments:: Pt yells with touch of RLE. My knee hurts, I had knee surgery( some time ago). - Level of function Prior to this admission, the patient could do the following:: Independent ADL's, Independent Ambulation Abilities prior to this admission: Pt used a lift chair at home. Pt lived with her daughter and family. Current Level of Function: Dependent Current Equipment Used at Home: walker, bedside commode, pulse ox, glucometer, lift chair Pain Assessment - Pain Pain Score: 8 Side: right Pain Location Body Site: Ankle Pain Aggravating Factors: Changing Position, Standing Pain Alleviating Factors: Medication, Sitting, Lying Supine Interventions - Objective Patient Orientation: Person, Place Current Interventions: IV's, Oxygen, Telemetry Observation: Pt is extremely weak. Pt did sip from a straw today. Pt is too tired to talk. Pt coughs but it limited on what she can get up and out. Pt answers about 50% of the questions due to fatigue. Interventions - ROM Right Upper Extremity AROM: Moderate limitation Left Upper Extremity AROM: Slight limitation - Strength Right Upper Extremity Strength: Severe Weakness Left Upper Extremity Strength: Mild Weakness - Sensation Right Upper Extremity Sensation: Intact/Normal Left Upper Extremity Sensation: Intact/Normal Balance - Sitting Balance Static Sitting Balance: Fair Dynamic Sitting Balance: Poor - Standing Balance Static Standing Balance: Poor Dynamic Standing Balance: Poor ADL Skills - Self Feeding Self Feeding: Min Assist - Grooming Grooming: Max Assist - Bathing Bathing UE: Max Assist, 2 person assist Bathing LE: Max Assist, 2 person assist - Dressing Dressing UE: Max Assist, 2 person assist Dressing LE: Max Assist, 2 person assist - Toilet Management Toilet Hygiene: Max Assist, 2 person assist Toilet Clothing Management: Max Assist, 2 person assist Functional Mobility - Bed Mobility Rolling R/L: Max Assist Scooting: Max Assist Supine to Sit: Max Assist, 2 person assist Sit to Supine: Max Assist, 2 person assist - Transfers Sit to Stand: Max Assist, 2 person assist Stand to Sit: Max Assist, 2 person assist Stand Pivot Transfers: Max Assist, 2 person assist - Ambulation Weight Bearing Status: FWB Assistance needed with Ambulation: Not Tested Comments:: Pt not able to ambulate. - Safety Awareness Safety Awareness: Poor MARK INDEX SCORE: . Additional Treatment Performed - Time with patient Length of Evaluation: 18 Total treatment time: 25 Activities Do you enjoy playing games?: Yes Would you be interested in leaving your room for activities?: Yes Would you enjoy group activities?: Yes Do you have difficulty with your vision?: Yes (reading glasses) Patient Interests:: Watching Television Patient Education Patient Education: Body/Joint mechanics, Activity Modification, Education of Plan of Care Teaching Recipient: Patient Teaching Methods: Discussion, Demonstration Assessment Problem List:: Decreased level of function, Requires training/education, Decreased safety/Risk of falls, Weakness, Pain limits previous level of function Rehab Potential: Fair Further Therapy Indicated?: Yes Evaluation Complexity: HISTORY: Medium, EXAM OF BODY SYSTEMS: Medium, CLINICAL DECISION MAKING: Medium Patient's Goal(s): To be able to go home. Short Term Goals - Goals GOAL 1: Pt to increase activity tolerance for ADLS to 8 minutes sitting EOB. Goal to be met by: 07/14/21 GOAL 2: Pt to increase toilet transfers to moderate assist with RW. Goal to be met by: 07/14/21 GOAL 3: Pt to increase to sink level ADLS with Moderate assistance. Goal to be met by: 07/14/21 GOAL 4: Pt to increase RUE AROM to be WFL. Goal to be met by: 07/14/21 [facility] Goals GOAL 1: Pt to increase Minimal assist of ADLS to SBA. Goal to be met by: 07/21/21 GOAL 2: Pt to increase BUE strength to 4/5. Goal to be met by: 07/21/21 GOAL 3: Pt to be Independent with self feeding. Goal to be met by: 07/21/21 Plan Plan of Care: Therapeutic EX, Therapeutic Activity, Self-Care/Home Management Frequency of Treatment: 1-2 X day, as tolerated Duration of Treatment: 2 Weeks Anticipated Discharge Destination: [facility] Treatment Diagnosis (ICD 10 Codes): Weakness R53.1, Need for assistance with personal care Z74.1, RUE shoulder pain M25.511. Has the Physician been added for Co-signature?: Yes
--- NOTE | 2021-07-10 13:13 | RS.DYSPHTX ---
Dysphagia Treatment Note Date of Note: 07/10/21 Visit #: 1 Time of Treatment: 11:30 Subjective: Pt upright in recliner chair with daughter at bedside. Pt lethargic but cooperative with all therapy tasks. Pt with updated CXR revealed bilateral pnuemonia. RN and family reported pt continues to demonstrate poor appetite with limited PO intake. Total treatment time: 60 - Short Term Goals Goal #1: Pt tolerate puree diet texture w/o overt s/s of asp. Activity/Accuracy: Pt consumed two bites of puree diet texture. She demonstrated decreased coordination with bolus manipulation. Pt with suspected delay with a-p transfer. 1-2 second delay with swallow initiation. Pt demonstrated mild delay coughs with all PO trials. Goal #2: Pt tolerate mildly thick nectar liquids w/o overt s/s of asp Activity/Accuracy: Pt consumed 10 trials. 50% of trials pt was observed with delayed coughs and throat clears. Pt demonstrated decrased LE, delayed swallow 2-3 seconds, multiple swallow responses, and laryngeal burping. Goal #3: Complete LE exercises on 100% of opportunities. Goal #4: Complete thermal stimulation to reduce swallow delay 100% of opportunities. Activity/Accuracy: Ice chip stimulation completed. Pt manipulated ice chips with max cues. Pt swallowed 2/2 ice chips with delayed coughs. Goal #5: Re-assessment of swallow function for potential diet upgrade Activity/Accuracy: Re-assessed pt with thin liquids. Pt demonstrated improvement with labial strength and pulled thin H2O via straw. Pt demonstrated immediate and delayed coughs with 100% of thin liquid trials. Goal #6: Complete OMEs 100% of opportunities. Activity/Accuracy: Pt completed open-close 5x requiring max cues. Pt fatigued quickly and did not want to complete lingual OMEs. - Jail Goals Goal #1: Pt tolerate safer and least restrictive diet w/ min to no s/s of asp. Assessment: Pt was assessed today with goals and readiness for liquid/diet upgrade. At the bedside pt presented with; delayed swallow initiation, delayed coughs with all thin liquids, non-productive coughing, and decreased LE for airway protection. MARINE STEAM FITTER recommends pt continue puree diet texture and mildly thick-nectar liquids. TOTAL feed. Continue meds crushed in pudding/puree. At this time, pt ok for sips of thin H2O upon request and post oral care routine. - Units Charged Swallowing Therapy: 4 - Plan Comments: MARINE STEAM FITTER plans to return Saturday07/12/21 to re-assess swallow function. MARINE STEAM FITTER provided verbal education and training with safe swallow/aspiration precautions, oral care routine, diet texture, liquid consistency and swallow therapy to daughter. She verbalized understanding and participated with MARINE STEAM FITTER during therapeutic activities.
[2021-07-10] MEDS ORDERED: TRANDATE IVP ONE (18:08)
[2021-07-11] MEDS: SYNTHROID PO SCH (05:32)
[2021-07-11] MEDS ORDERED: TRANDATE IVP ONE ×2 (05:46→23:14)
[2021-07-11] MEDS: LEVAQUIN 750 MG/150 ML D5W 750 MG/150 ML BAG IV SCH (08:41)
[2021-07-11] MEDS: MULTIVITAMIN TABLET PO SCH (08:42)
[2021-07-11] MEDS: ASPIRIN CHEWABLE PO SCH (08:42)
[2021-07-11] MEDS: NORCO 5-325 PO PRN (08:42)
[2021-07-11] MEDS: K-DUR PO SCH ×2 (08:42→17:40)
[2021-07-11] MEDS: VASOTEC PO SCH ×2 (08:42→20:36)
[2021-07-11] MEDS: MAG-OX PO SCH (08:42)
[2021-07-11] MEDS: PHENOBARBITAL PO SCH ×2 (08:42→20:36)
[2021-07-11] MEDS: NYSTOP POWDER TP SCH ×3 (08:43→20:40)
[2021-07-11] MEDS: APRESOLINE PO SCH ×3 (10:03→20:36)
--- NOTE | 2021-07-11 14:28 | CT ---
EXAM: CT right knee without contrast HISTORY: Pain after fall COMPARISON: 01/04/2016. TECHNIQUE: Noncontrast CT of the right knee with coronal and sagittal reformats. FINDINGS: Status post right total knee arthroplasty. Components are well seated without scooter-hardware lucency. No fracture or malalignment. No joint effusion. Mild fatty infiltration of the visualized muscula ture. IMPRESSION: 1. No acute osseous abnormality. 2. Right TKA without evidence for hardware complication. All CT scans are performed using dose optimization techniques as appropriate to the performed exam an d include at least one of the following: Automated exposure control, adjustment of the mA and/or kV according t o size, and the use of iterative reconstruction technique.
[2021-07-11] MEDS: SODIUM CHLORIDE 1,000 ML IV SCH (14:37)
[2021-07-12] MEDS: SODIUM CHLORIDE 1,000 ML IV SCH ×2 (04:10→18:29)
[2021-07-12 05:18] LABS: BASOPHILS % (AUTO) 0.3 % (0.0-3.0); EOSINOPHILS % (AUTO) 0.3 % (0.0-7.0); HEMATOCRIT 26.7 % (37.0-47.0); HEMOGLOBIN 8.2 g/dl (12.0-16.0); IMMATURE GRANULOCYTE # (AUTO) 0.1 (0.0-1.0); IMMATURE GRANULOCYTE % (AUTO) 1.4 % (0.0-5.0); LYMPHOCYTES % (AUTO) 12.1 (10.0-50.0); MEAN CORPUSCULAR HEMOGLOBIN 25.2 pg (27.0-31.0); MEAN CORPUSCULAR HGB CONC 30.7 (31.8-35.4); MEAN CORPUSCULAR VOLUME 82.2 fl (81.0-99.0); MONOCYTES # (AUTO) 0.8 K/uL (0.4-2.0); MONOCYTES % (AUTO) 10.3 (0-10); NEUTROPHILS # (AUTO) 5.9 K/ul (2.0-6.9); NEUTROPHILS % (AUTO) 75.6 % (42.2-75.2); PLATELET COUNT 367 10^3/uL (140-440); RDW COEFFICIENT OF VARIATION 15.9 % (11.6-14.8); RED BLOOD COUNT 3.25 10^6/ul (4.20-5.40); WHITE BLOOD COUNT 7.83 K/ul (4.6-10.2)
[2021-07-12] MEDS: SYNTHROID PO SCH (05:30)
[2021-07-12 05:33] LABS: ALANINE AMINOTRANSFERASE 17.1 U/L (0-35); ALBUMIN 2.39 g/dL (3.5-5.0); ALKALINE PHOSPHATASE 97.4 U/L (53-141); BILIRUBIN,TOTAL 0.27 mg/dL (0.2-1.3); BLOOD UREA NITROGEN 7.3 mg/dL (7-17); CALCIUM 7.81 mg/dL (8.4-10.2); CARBON DIOXIDE 21.1 mmol/L (22-30.0); CHLORIDE 111.1 mmol/L (98-107); CREATININE 0.44 mg/dL (0.60-1.30); GLUCOSE 114.4 mg/dL (74-106); POTASSIUM 4.1 mmol/L (3.5-5.1); SODIUM 137.9 mmol/L (134.5-145); TOTAL PROTEIN 5.58 g/dL (6.3-8.2)
[2021-07-12] MEDS: ASPIRIN CHEWABLE PO SCH (08:20)
[2021-07-12] MEDS: VASOTEC PO SCH ×2 (08:20→20:45)
[2021-07-12] MEDS: MAG-OX PO SCH (08:20)
[2021-07-12] MEDS: K-DUR PO SCH ×2 (08:20→16:43)
[2021-07-12] MEDS: MULTIVITAMIN TABLET PO SCH (08:21)
[2021-07-12] MEDS: PHENOBARBITAL PO SCH ×2 (08:21→20:45)
[2021-07-12] MEDS: NYSTOP POWDER TP SCH ×3 (08:21→20:46)
[2021-07-12] MEDS: APRESOLINE PO SCH ×3 (08:21→20:45)
[2021-07-12] MEDS: LEVAQUIN 750 MG/150 ML D5W 750 MG/150 ML BAG IV SCH (08:22)
--- NOTE | 2021-07-12 12:22 | PCM.PROG ---
Date Seen by Provider: 07/12/21 Time Seen by Provider: 12:00 Subjective: Still c/o weakness. No new complaints. Objective: Vitals: T=98.2 F, P=93, R=18, TT=978/66, SPO2=92 HEENT: Grossly WNL Neck: [Supple] Lungs: [Diminished breath sounds, adequate air movement, no wheezing.] CVS: [RRR without m] Abdomen: [soft, no pain] Extremities: [Intact, no acute change.] Neurological: [Grossly intact] Skin: [No acute change.] Lab/Tests/Diagnostic Imaging: [Hb today 8.2, down somewhat. No other lab abnormalities of concern. ] (1) Oropharyngeal dysphagia: Status: Acute Code(s): R13.12 - Dysphagia, oropharyngeal phase SNOMED Code(s): 16947799 Assessment: Unchanged, no reported aspiration. (2) Lumbar back pain: Status: Acute Code(s): M54.50 - Low back pain, unspecified SNOMED Code(s): 538893089 Assessment: Chronic (3) COPD (chronic obstructive pulmonary disease): Status: Acute Code(s): J44.9 - Chronic obstructive pulmonary disease, unspecified SNOMED Code(s): 50899340 Assessment: Overall improved. (4) Closed sacral fracture: Status: Acute Code(s): S32.10XA - Unspecified fracture of sacrum, initial encounter for closed fracture SNOMED Code(s): 965645670 Assessment: Healing. (5) Anemia: Status: Acute Code(s): D64.9 - Anemia, unspecified SNOMED Code(s): 348746000 Assessment: Hb 8.2 today, down somewhat, no active blood loss known, needs stool hemoccult and monitoring. Order labs. Plan: Today will be last day of levaquin. Temo has been in touch with the daughter. He is working on fpc placement.
[2021-07-12 13:18] LABS: IRON 19.3 ug/dL (37-170)
--- NOTE | 2021-07-12 13:21 | RS.DYSPHTX ---
Dysphagia Treatment Note Date of Note: 07/12/21 Visit #: 2 Time of Treatment: 12:30 Subjective: Pt upright in recliner chair. Sonya came to room during SPT. Pt participated in simple conversation with family and STATION BAGGAGE AGENT. Total treatment time: 30 - Short Term Goals Goal #1: Pt tolerate puree diet texture w/o overt s/s of asp. Activity/Accuracy: Pt refused all trials of puree presentations. Goal #2: Pt tolerate mildly thick nectar liquids w/o overt s/s of asp Activity/Accuracy: Pt took sips without overt s/s of aspiration 100% of trials. Goal #3: Complete LE exercises on 100% of opportunities. Activity/Accuracy: Laryngeal palpation completed. Pt demonstrated mild-moderate sluggish LE for airway protection on all effortful swallow trials. Pt completed effortful swallow 3x. Goal #4: Complete thermal stimulation to reduce swallow delay 100% of opportun ities. Activity/Accuracy: Pt tolerated 5 trials of ice chip stimulation. Pt swallowed ice chips with 1-2 second swallow delay. No overt s/s of aspiration Goal #5: Re-assessment of swallow function for potential diet upgrade Activity/Accuracy: Attempted re-assessment of swallow function. Pt reported she was interested in trialing textures; however due to pt's level of lethargy STATION BAGGAGE AGENT did not feel it was appropriate this date. Goal #6: Complete OMEs 100% of opportunities. Activity/Accuracy: Pt completed lingual tip coordination exercises with moderate-severe weakness. Pt completed labial tension exercises with mild- moderate weakness. - Retirement Goals Goal #1: Pt tolerate safer and least restrictive diet w/ min to no s/s of asp. Assessment: Pt presented with increased awareness to PO trials and response to simple verbal questions. Upon STATION BAGGAGE AGENT assessment of oral cavity, oral thrush was identified. Due to severity with thrush, pt's risks for aspiration, and pts current respiratory status pt has high risks for aspiration/penetration episodes with thin liquids. STATION BAGGAGE AGENT does not recommend pt have thin liquids between meals until oral thrush has cleared. If warranted by MD, STATION BAGGAGE AGENT will re-assess for potential diet and liquid upgrade. STATION BAGGAGE AGENT recommends pt to continue puree diet texture with mildly thick-nectar liquids. ASSIST FEED. Meds crushed in pudding/yogurt. Oral care routine. Encourage swallowing. - Units Charged Swallowing Therapy: 2 - Plan Comments: STATION BAGGAGE AGENT will return if warranted by or nursing for potential diet/liquid upgrade.
[2021-07-12 13:36] LABS: FREE T4 (FREE THYROXINE) 1.84 ng/dL (0.78-2.19)
[2021-07-12 13:56] LABS: THYROID STIMULATING HORMONE 4.42 uIU/L (0.465-4.68)
[2021-07-12 14:00] LABS: FERRITIN 75.6 ng/mL (11.1-264.0)
[2021-07-12] MEDS: NYSTATIN ORAL SUSP PO SCH ×3 (14:48→20:45)
[2021-07-13] MEDS: SYNTHROID PO SCH (05:48)
[2021-07-13] MEDS: NYSTATIN ORAL SUSP PO SCH ×4 (05:48→20:17)
[2021-07-13 05:52] LABS: BASOPHILS % (AUTO) 0.3 % (0.0-3.0); EOSINOPHILS % (AUTO) 0.1 % (0.0-7.0); HEMATOCRIT 29.3 % (37.0-47.0); HEMOGLOBIN 9.1 g/dl (12.0-16.0); IMMATURE GRANULOCYTE # (AUTO) 0.1 (0.0-1.0); IMMATURE GRANULOCYTE % (AUTO) 1.2 % (0.0-5.0); LYMPHOCYTES # (AUTO) 0.9 K/uL (0.60-3.4); LYMPHOCYTES % (AUTO) 8.1 (10.0-50.0); MEAN CORPUSCULAR HEMOGLOBIN 25.4 pg (27.0-31.0); MEAN CORPUSCULAR HGB CONC 31.1 (31.8-35.4); MEAN CORPUSCULAR VOLUME 81.8 fl (81.0-99.0); MONOCYTES # (AUTO) 1.1 K/uL (0.4-2.0); MONOCYTES % (AUTO) 9.4 (0-10); NEUTROPHILS # (AUTO) 9.3 K/ul (2.0-6.9); NEUTROPHILS % (AUTO) 80.9 % (42.2-75.2); PLATELET COUNT 375 10^3/uL (140-440); RDW COEFFICIENT OF VARIATION 15.8 % (11.6-14.8); RED BLOOD COUNT 3.58 10^6/ul (4.20-5.40); WHITE BLOOD COUNT 11.55 K/ul (4.6-10.2)
[2021-07-13 06:03] LABS: ALANINE AMINOTRANSFERASE 44.4 U/L (0-35); ALBUMIN 2.73 g/dL (3.5-5.0); ALKALINE PHOSPHATASE 103.4 U/L (53-141); ASPARTATE AMINO TRANSFERASE 73.8 U/L (14-36); BILIRUBIN,TOTAL 0.41 mg/dL (0.2-1.3); BLOOD UREA NITROGEN 5.5 mg/dL (7-17); CALCIUM 7.66 mg/dL (8.4-10.2); CARBON DIOXIDE 19.2 mmol/L (22-30.0); CHLORIDE 108.5 mmol/L (98-107); CREATININE 0.29 mg/dL (0.60-1.30); GLUCOSE 135.4 mg/dL (74-106); POTASSIUM 3.79 mmol/L (3.5-5.1); SODIUM 137.3 mmol/L (134.5-145); TOTAL PROTEIN 6.28 g/dL (6.3-8.2)
[2021-07-13] MEDS: SODIUM CHLORIDE 1,000 ML IV SCH ×3 (06:37→21:35)
[2021-07-13] MEDS: LEVAQUIN 750 MG/150 ML D5W 750 MG/150 ML BAG IV SCH (09:43)
[2021-07-13] MEDS: ASPIRIN CHEWABLE PO SCH (09:46)
[2021-07-13] MEDS: VASOTEC PO SCH ×2 (09:46→20:17)
[2021-07-13] MEDS: PHENOBARBITAL PO SCH ×2 (09:46→20:17)
[2021-07-13] MEDS: MULTIVITAMIN TABLET PO SCH (09:47)
[2021-07-13] MEDS: K-DUR PO SCH ×2 (09:47→17:13)
[2021-07-13] MEDS: APRESOLINE PO SCH ×3 (09:47→20:18)
[2021-07-13] MEDS: MAG-OX PO SCH (09:47)
[2021-07-13] MEDS: NYSTOP POWDER TP SCH ×3 (09:50→20:18)
[2021-07-13] MEDS: TYLENOL PO PRN (09:54)
[2021-07-13] MEDS ORDERED: DECADRON IM ONE (10:11)
[2021-07-13] MEDS ORDERED: LASIX IVP STA (10:11)
[2021-07-13] MEDS: COREG PO SCH ×2 (10:41→17:12)
[2021-07-13 10:43] LABS: ABG O2 HGB 91.3 % (95-100); ABG PH 7.48 (7.35-7.45); BEecf -1.2 (-2.0-3.0); COHb 3.1 (0.5-1.5); HCO3 22.3 (21-28); MetHb 0.8 (0-1.5); TCO2 23.2 (19-24); sO2 92.5 % (94-98); tHb 9.8 g/dl (11.7-17.4)
[2021-07-13] MEDS: TORADOL IVP PRN (10:51)
--- NOTE | 2021-07-13 14:20 | DI ---
EXAM: Chest one view, frontal view only. HISTORY: Pneumonia. Shortness of breath. COVID-19. COMPARISON: 07/09/2021. FINDINGS: Heart size at the upper limits of normal. Redemonstration of bibasilar consolidation, gre ater on the left. This is probably stable when accounting for difference in technique. No pleural e ffusion or pneumothorax. No acute osseous abnormality. IMPRESSION: Stable bilateral pneumonia.
[2021-07-14 04:24] LABS: ABG O2 HGB 94.7 % (95-100); BEecf -0.3 (-2.0-3.0); COHb 2.2 (0.5-1.5); HCO3 22.2 (21-28); MetHb 0.9 (0-1.5); sO2 97.3 % (94-98)
[2021-07-14 04:25] LABS: ABG PH 7.54 (7.35-7.45)
[2021-07-14] MEDS: SYNTHROID PO SCH (05:46)
[2021-07-14] MEDS: NYSTATIN ORAL SUSP PO SCH ×4 (05:46→20:21)
[2021-07-14 06:03] LABS: BASOPHILS % (AUTO) 0.3 % (0.0-3.0); EOSINOPHILS % (AUTO) 0.1 % (0.0-7.0); HEMATOCRIT 28.5 % (37.0-47.0); HEMOGLOBIN 8.8 g/dl (12.0-16.0); IMMATURE GRANULOCYTE # (AUTO) 0.1 (0.0-1.0); IMMATURE GRANULOCYTE % (AUTO) 0.9 % (0.0-5.0); LYMPHOCYTES # (AUTO) 1.2 K/uL (0.60-3.4); LYMPHOCYTES % (AUTO) 10.3 (10.0-50.0); MEAN CORPUSCULAR HEMOGLOBIN 25.4 pg (27.0-31.0); MEAN CORPUSCULAR HGB CONC 30.9 (31.8-35.4); MEAN CORPUSCULAR VOLUME 82.4 fl (81.0-99.0); MONOCYTES # (AUTO) 1.1 K/uL (0.4-2.0); MONOCYTES % (AUTO) 9.7 (0-10); NEUTROPHILS # (AUTO) 9.2 K/ul (2.0-6.9); NEUTROPHILS % (AUTO) 78.7 % (42.2-75.2); PLATELET COUNT 416 10^3/uL (140-440); RDW COEFFICIENT OF VARIATION 15.9 % (11.6-14.8); RED BLOOD COUNT 3.46 10^6/ul (4.20-5.40); WHITE BLOOD COUNT 11.68 K/ul (4.6-10.2)
[2021-07-14 06:15] LABS: CHOLESTEROL 161.1 mg/dL (0-200); HDL CHOLESTEROL 23.2 mg/dL (35-80); TRIGLYCERIDES 142.1 mg/dL (0-150)
[2021-07-14 06:16] LABS: ALANINE AMINOTRANSFERASE 57.5 U/L (0-35); ALBUMIN 2.68 g/dL (3.5-5.0); ALKALINE PHOSPHATASE 99.7 U/L (53-141); ASPARTATE AMINO TRANSFERASE 69.7 U/L (14-36); BILIRUBIN,TOTAL 0.34 mg/dL (0.2-1.3); BLOOD UREA NITROGEN 8.4 mg/dL (7-17); CALCIUM 8.02 mg/dL (8.4-10.2); CARBON DIOXIDE 23.9 mmol/L (22-30.0); CHLORIDE 110.4 mmol/L (98-107); CREATININE 0.41 mg/dL (0.60-1.30); POTASSIUM 3.64 mmol/L (3.5-5.1); SODIUM 139.6 mmol/L (134.5-145); TOTAL PROTEIN 6.35 g/dL (6.3-8.2)
[2021-07-14] MEDS ORDERED: DECADRON IM ONE (09:00)
[2021-07-14] MEDS ORDERED: LASIX IVP ONE (09:04)
[2021-07-14] MEDS ORDERED: DECADRON IM STA (09:05)
[2021-07-14] MEDS: ASPIRIN CHEWABLE PO SCH (09:51)
[2021-07-14] MEDS: MULTIVITAMIN TABLET PO SCH (09:51)
[2021-07-14] MEDS: MAG-OX PO SCH (09:51)
[2021-07-14] MEDS: COREG PO SCH ×3 (09:51→19:30)
[2021-07-14] MEDS: VASOTEC PO SCH ×2 (09:51→20:22)
[2021-07-14] MEDS: TORADOL IVP PRN ×2 (09:52→21:53)
[2021-07-14] MEDS: K-DUR PO SCH ×2 (09:52→17:21)
[2021-07-14] MEDS: PHENOBARBITAL PO SCH ×2 (09:52→20:22)
[2021-07-14] MEDS: NYSTOP POWDER TP SCH ×3 (10:06→20:22)
[2021-07-14] MEDS: LEVAQUIN 750 MG/150 ML D5W 750 MG/150 ML BAG IV SCH (10:07)
--- NOTE | 2021-07-14 10:19 | PCM.PROG ---
Attending Provider: ATTENDING PROVIDER: Dr. BART CAICEDO DATE OF SERVICE: 07/14/21 SUBJECTIVE: This 80 year old /WHITE F was hospitalized 07/06/21 with history of having COVID 19 at [facility] and there for 3-4 days. Condition deteriorated at home and was hospitalized at [facility] and here has been treated for pneumonia. The patient's overall status has declined and appetite is poor. She was supposed to go to the residential yesterday but under Dr. Caicedo we decided to keep her. We thought she was not ready so we accepted this patient from the hospitalist to be taken care of her until discharge. REVIEW OF SYSTEMS: CONSTITUTIONAL: No night sweats. No fatigue, malaise, lethargy. No fever or chills. HEENT: Eyes: No visual changes. No eye pain. No eye discharge. ENT: No runny nose. No epistaxis. No sinus pain. No odynophagia. No congestion. RESPIRATORY: No cough, no congestion. No hemoptysis. No shortness of breath. CARDIOVASCULAR: No angina symptoms. No CHF symptoms. No atypical chest pain for CAD. No palpitations. No orthopnea.. GASTROINTESTINAL: No abdominal pain. No nausea or vomiting. No diarrhea or constipation. No hematemesis. No hematochezia. Appetite still poor. GENITOURINARY: No urgency. No frequency. No dysuria. No hematuria. No obstructive symptoms. No discharge. No pain. No significant abnormal bleeding. MUSCULOSKELETAL: No musculoskeletal pain; no joint swelling. NEUROLOGICAL: Awake, alert, oriented to time, place and person. No headache. No neck pain. No syncope. No seizures. No dizziness. PSYCHIATRIC: Not anxious. No depression. No suicidal thoughts. No homicidal thoughts. SKIN: No rash. No lesions. No wounds. ENDOCRINE: No unexplained weight loss. No weight gain. HEMATOLOGIC/LYMPHATIC: No anemia. No purpura. No petechiae. No prolonged or excessive bleeding. No palpable lymph nodes. PHYSICAL EXAMINATION: GENERAL: The patient is awake, alert and oriented, lying in bed in no distress. VITAL SIGNS: Temperature 98.2 F, Pulse 94, Respiratory Rate 20, BP 165/77, Pulse Ox 88% HEENT: Head normocephalic, atraumatic. Eyes: Extraocular muscles are intact. Pupils are equal, round and reactive to light and accommodation. Ears: No lesions. Nose appeared normal. Throat: No exudate or erythema. NECK: Supple. No JVD, no carotid bruit. No lymphadenopathy or thyromegaly. LUNGS: Decreased breath sounds. Clear to auscultation. Percussion note normal. Chest symmetrical. HEART: S1, S2, no S3. No murmurs. No cyanosis or clubbing. No ascites. Pulses: Dorsalis pedis and posterior tibial pulses +1 to +2 both sides. ABDOMEN: Soft. Non-tender. Bowel sounds active. No CVA tenderness. No mass felt. EXTREMITIES: Trace to +1 edema hands, arms and legs. Full range of motion of all extremities, equal. NEUROLOGIC: No focal deficit. Cranial nerves II through XII are grossly intact. No headache, no double vision or headache. SKIN: Warm and dry. Intact. Turgor-normal. LYMPHATIC: No palpable lymph nodes/no lymphedema. MUSCULOSKELETAL: Normal joints with no swelling. Muscle tone is normal. LAB REVIEW: 07/14/21 04:56 07/14/21 04:56 07/14/21 04:56: Sodium 139.6, Potassium 3.64, Chloride 110.4 H, Carbon Dioxide 23.9, Anion Gap 8.94, BUN 8.4, Creatinine 0.41 L, Estimated GFR (MDRD) 150.00, BUN/Creatinine Ratio 20.48, Glucose 124.0 H, Calcium 8.02 L, Total Bilirubin 0.34, AST 69.7 H, ALT 57.5 H, Alkaline Phosphatase 99.7, Total Protein 6.35, Albumin 2.68 L, Globulin 3.67, Albumin/Globulin Ratio 0.73 07/14/21 04:56: Triglycerides 142.1, Cholesterol 161.1, LDL Cholesterol, Calc 109, VLDL Cholesterol 28, HDL Cholesterol 23.2 L, Cholesterol/HDL Ratio 6.9 H 07/14/21 04:56: Hemoglobin A1c 7.62 H 07/14/21 04:56: WBC 11.68 H, RBC 3.46 L, Hgb 8.8 L, Hct 28.5 L, MCV 82.4, MCH 25.4 L, MCHC 30.9 L, RDW Coeff of Breanne 15.9 H, Plt Count 416, Immature Gran % (Auto) 0.9, Neut % (Auto) 78.7 H, Lymph % (Auto) 10.3, Ogle % (Auto) 9.7, Eos % (Auto) 0.1, Baso % (Auto) 0.3, Neut # (Auto) 9.2 H, Lymph # (Auto) 1.2, Ogle # (Auto) 1.1, Eos # (Auto) 0.0, Baso # (Auto) 0.0, Immature Gran # (Auto) 0.1 07/14/21 04:15: Puncture Site Lb, Base Excess -0.3, O2 Saturation 97.3, ABG pH 7.54 H*, ABG pCO2 26.0 L, ABG pO2 82.0 L, ABG HCO3 22.2, ABG Total CO2 23.0, Joe Test +, Hemoglobin 0.9, Oxyhemoglobin 94.7 L, Carboxyhemoglobin 2.2 H, Total Hemoglobin 9.0 L, O2 Delivery Device Cannula, Oxygen Liter Flow 4.00, FiO2 % 36.0 07/13/21 10:28: Puncture Site Rrad, Base Excess -1.2, O2 Saturation 92.5 L, ABG pH 7.48 H, ABG pCO2 30.0 L, ABG pO2 60.0 L, ABG HCO3 22.3, ABG Total CO2 23.2, Joe Test Pos, Hemoglobin 0.8, Oxyhemoglobin 91.3 L, Carboxyhemoglobin 3.1 H, Total Hemoglobin 9.8 L, O2 Delivery Device Cannula, Oxygen Liter Flow 3.00 ASSESSMENT: Please see below. 1. COVID pneumonia with respiratory failure 2. Hypertension 3. Chronic anemia 4. Diabetes Mellitus 5. Hypotension PLAN: 1. Discontinue Hydralazine 2. Coreg 12.5 PO BID 3. Lasix 20mg IV 4. 1cc Decadron daily 5. Continue IV fluids 6. Continue to encourage the patient to eat 7. The patient will have a PCR. She had a rapid COVID at [facility] and nothing done after that 8. Monitor CBC and CMP 9. Remdesivir was given at [facility] two Plan and coordination of the patient's care discussed in the presence of Regulatory Agency Director and nurse. SCRIBED BY: JANICE MACHADO Senior Network Security Engineer scribed while in presence of service performed by Dr. BART CAICEDO on 07/14/21 ([id number])
[2021-07-14] MEDS: SODIUM CHLORIDE 1,000 ML IV SCH (11:29)
[2021-07-14 13:00] LABS: BORDETELLA PARAPERTUSSIS (PCR) NOT DETECTED (NOT DETECT); BORDETELLA PERTUSSIS (PCR) NOT DETECTED (NOT DETECT); CHLAMYDIA PNEUMONIAE (PCR) NOT DETECTED (NOT DETECT); CORONAVIRUS 229E (PCR) NOT DETECTED (NOT DETECT); CORONAVIRUS HKU1 (PCR) NOT DETECTED (NOT DETECT); CORONAVIRUS NL63 (PCR) NOT DETECTED (NOT DETECT); CORONAVIRUS OC43 (PCR) NOT DETECTED (NOT DETECT); HUMAN METAPNEUMOVIRUS (PCR) NOT DETECTED (NOT DETECT); HUMAN RHINOVIRUS/ENTEROV (PCR) NOT DETECTED (NOT DETECT); INFLUENZA B (PCR) NOT DETECTED (NOT DETECT); MYCOPLASMA PNEUMONIAE (PCR) NOT DETECTED (NOT DETECT); PARAINFLUENZA VIRUS 1 (PCR) NOT DETECTED (NOT DETECT); PARAINFLUENZA VIRUS 2 (PCR) NOT DETECTED (NOT DETECT); PARAINFLUENZA VIRUS 3 (PCR) NOT DETECTED (NOT DETECT); PARAINFLUENZA VIRUS 4 (PCR) NOT DETECTED (NOT DETECT); RESPIRATORY SYNCYTIAL V (PCR) NOT DETECTED (NOT DETECT)
[2021-07-14 13:48] LABS: ADENOVIRUS (PCR) NOT DETECTED (NOT DETECT)
[2021-07-14 13:50] LABS: SARS_COV_2 (PCR) DETECTED (NOT DETECT)
--- NOTE | 2021-07-14 14:41 | PN ---
DATE OF SERVICE: 07/13/2021 SUBJECTIVE: The patient was seen and examined with Nurse Practitioner. The patient used to be hospitalist and today she has been turned over to my practice. Supposed to be discharged to [facility] but we found that she was not stable as we were supposed to accept her as a patient decided to keep the patient for another 3-4 days for physical therapy and treatment. Pneumonia is resolving. She has COVID 19 pneumonia with respiratory failure with saturation 88-90% even with 2-3 liters. IV Lasix, Steroids. The patient's daughter is in the room. We explained about this and she is agreeable. PROGNOSIS: Guarded. TIME SPENT: More than 30 minutes. Plan and coordination of the patient's care discussed in the presence of nurse. SHREYA
[2021-07-14] MEDS: APRESOLINE PO SCH (19:30)
[2021-07-15] MEDS: SODIUM CHLORIDE 1,000 ML IV SCH (00:35)
[2021-07-15 05:45] LABS: BASOPHILS % (AUTO) 0.5 % (0.0-3.0); EOSINOPHILS % (AUTO) 0.1 % (0.0-7.0); HEMATOCRIT 27.2 % (37.0-47.0); HEMOGLOBIN 8.2 g/dl (12.0-16.0); IMMATURE GRANULOCYTE # (AUTO) 0.1 (0.0-1.0); IMMATURE GRANULOCYTE % (AUTO) 0.8 % (0.0-5.0); LYMPHOCYTES # (AUTO) 1.2 K/uL (0.60-3.4); LYMPHOCYTES % (AUTO) 14.2 (10.0-50.0); MEAN CORPUSCULAR HEMOGLOBIN 25.2 pg (27.0-31.0); MEAN CORPUSCULAR HGB CONC 30.1 (31.8-35.4); MEAN CORPUSCULAR VOLUME 83.7 fl (81.0-99.0); MONOCYTES % (AUTO) 11.4 (0-10); NEUTROPHILS # (AUTO) 6.3 K/ul (2.0-6.9); PLATELET COUNT 382 10^3/uL (140-440); RDW COEFFICIENT OF VARIATION 15.8 % (11.6-14.8); RED BLOOD COUNT 3.25 10^6/ul (4.20-5.40); WHITE BLOOD COUNT 8.65 K/ul (4.6-10.2)
[2021-07-15] MEDS: TORADOL IVP PRN (05:49)
[2021-07-15] MEDS: NYSTATIN ORAL SUSP PO SCH ×4 (05:53→20:23)
[2021-07-15] MEDS: SYNTHROID PO SCH (05:53)
[2021-07-15] MEDS: LASIX TAB PO SCH (05:53)
[2021-07-15] MEDS: NORCO 5-325 PO PRN ×2 (05:57→18:45)
[2021-07-15 06:09] LABS: ALANINE AMINOTRANSFERASE 65.7 U/L (0-35); ALBUMIN 2.44 g/dL (3.5-5.0); ALKALINE PHOSPHATASE 95.3 U/L (53-141); ASPARTATE AMINO TRANSFERASE 76.5 U/L (14-36); BILIRUBIN,TOTAL 0.25 mg/dL (0.2-1.3); BLOOD UREA NITROGEN 7.1 mg/dL (7-17); CALCIUM 7.77 mg/dL (8.4-10.2); CARBON DIOXIDE 23.5 mmol/L (22-30.0); CHLORIDE 109.4 mmol/L (98-107); CREATININE 0.46 mg/dL (0.60-1.30); GLUCOSE 106.1 mg/dL (74-106); POTASSIUM 3.47 mmol/L (3.5-5.1); SODIUM 138.3 mmol/L (134.5-145); TOTAL PROTEIN 5.72 g/dL (6.3-8.2)
[2021-07-15] MEDS: LEVAQUIN 750 MG/150 ML D5W 750 MG/150 ML BAG IV SCH (09:41)
[2021-07-15] MEDS: DECADRON IM SCH (09:41)
[2021-07-15] MEDS: PHENOBARBITAL PO SCH ×2 (09:41→20:23)
[2021-07-15] MEDS: ASPIRIN CHEWABLE PO SCH (09:42)
[2021-07-15] MEDS: MULTIVITAMIN TABLET PO SCH (09:42)
[2021-07-15] MEDS: VASOTEC PO SCH ×2 (09:42→20:23)
[2021-07-15] MEDS: COREG PO SCH ×2 (09:42→17:00)
[2021-07-15] MEDS: K-DUR PO SCH ×2 (09:42→17:01)
[2021-07-15] MEDS: MAG-OX PO SCH (09:42)
[2021-07-15] MEDS: NYSTOP POWDER TP SCH ×3 (09:43→20:23)
[2021-07-15] MEDS: HUMALOG SUBCUT PRN ×2 (13:06→17:31)
[2021-07-15] MEDS ORDERED: ANUCORT-HC RC ONE ×2 (16:00→19:00)
[2021-07-15 22:06] LABS: HEMOGLOBIN 10.6 g/dl (12.0-16.0)
[2021-07-16] MEDS: NORCO 5-325 PO PRN (02:17)
[2021-07-16 05:43] LABS: BASOPHILS # (AUTO) 0.1 K/uL (0-0.2); BASOPHILS % (AUTO) 0.5 % (0.0-3.0); HEMATOCRIT 33.8 % (37.0-47.0); HEMOGLOBIN 10.4 g/dl (12.0-16.0); IMMATURE GRANULOCYTE # (AUTO) 0.1 (0.0-1.0); IMMATURE GRANULOCYTE % (AUTO) 0.7 % (0.0-5.0); LYMPHOCYTES # (AUTO) 1.2 K/uL (0.60-3.4); LYMPHOCYTES % (AUTO) 11.4 (10.0-50.0); MEAN CORPUSCULAR HEMOGLOBIN 25.7 pg (27.0-31.0); MEAN CORPUSCULAR HGB CONC 30.8 (31.8-35.4); MEAN CORPUSCULAR VOLUME 83.5 fl (81.0-99.0); MONOCYTES # (AUTO) 1.2 K/uL (0.4-2.0); MONOCYTES % (AUTO) 11.3 (0-10); NEUTROPHILS # (AUTO) 8.2 K/ul (2.0-6.9); NEUTROPHILS % (AUTO) 76.1 % (42.2-75.2); PLATELET COUNT 269 10^3/uL (140-440); RDW COEFFICIENT OF VARIATION 15.6 % (11.6-14.8); RED BLOOD COUNT 4.05 10^6/ul (4.20-5.40); WHITE BLOOD COUNT 10.76 K/ul (4.6-10.2)
[2021-07-16] MEDS: NYSTATIN ORAL SUSP PO SCH ×4 (05:58→20:31)
[2021-07-16] MEDS: LASIX TAB PO SCH (05:58)
[2021-07-16] MEDS: SYNTHROID PO SCH (05:59)
[2021-07-16 06:01] LABS: ALANINE AMINOTRANSFERASE 89.3 U/L (0-35); ALBUMIN 2.94 g/dL (3.5-5.0); ALKALINE PHOSPHATASE 92.6 U/L (53-141); ASPARTATE AMINO TRANSFERASE 97.2 U/L (14-36); BILIRUBIN,TOTAL 0.71 mg/dL (0.2-1.3); BLOOD UREA NITROGEN 6.9 mg/dL (7-17); CALCIUM 7.96 mg/dL (8.4-10.2); CARBON DIOXIDE 22.2 mmol/L (22-30.0); CHLORIDE 107.5 mmol/L (98-107); CREATININE 0.35 mg/dL (0.60-1.30); GLUCOSE 130.1 mg/dL (74-106); POTASSIUM 4.5 mmol/L (3.5-5.1); TOTAL PROTEIN 6.96 g/dL (6.3-8.2)
[2021-07-16] MEDS: LEVAQUIN 750 MG/150 ML D5W 750 MG/150 ML BAG IV SCH (09:21)
[2021-07-16] MEDS: DECADRON IM SCH (09:22)
[2021-07-16] MEDS: TORADOL IVP PRN (09:22)
[2021-07-16] MEDS: K-DUR PO SCH ×2 (09:22→16:45)
[2021-07-16] MEDS: ASPIRIN CHEWABLE PO SCH (09:22)
[2021-07-16] MEDS: VASOTEC PO SCH ×2 (09:22→20:31)
[2021-07-16] MEDS: PHENOBARBITAL PO SCH ×2 (09:22→20:32)
[2021-07-16] MEDS: MAG-OX PO SCH (09:23)
[2021-07-16] MEDS: NYSTOP POWDER TP SCH ×3 (09:23→21:48)
[2021-07-16] MEDS: COREG PO SCH ×2 (09:23→16:45)
[2021-07-16] MEDS: MULTIVITAMIN TABLET PO SCH (09:23)
[2021-07-16] MEDS ORDERED: MILK OF MAGNESIA PO STA (12:00)
[2021-07-16] MEDS ORDERED: DULCOLAX PO PRN (12:00)
[2021-07-16] MEDS: HUMALOG SUBCUT PRN ×3 (12:51→20:32)
[2021-07-17 05:25] LABS: BASOPHILS % (AUTO) 0.3 % (0.0-3.0); EOSINOPHILS % (AUTO) 0.1 % (0.0-7.0); HEMATOCRIT 31.4 % (37.0-47.0); HEMOGLOBIN 9.8 g/dl (12.0-16.0); IMMATURE GRANULOCYTE # (AUTO) 0.1 (0.0-1.0); IMMATURE GRANULOCYTE % (AUTO) 0.6 % (0.0-5.0); LYMPHOCYTES # (AUTO) 1.4 K/uL (0.60-3.4); LYMPHOCYTES % (AUTO) 14.6 (10.0-50.0); MEAN CORPUSCULAR HEMOGLOBIN 25.6 pg (27.0-31.0); MEAN CORPUSCULAR HGB CONC 31.2 (31.8-35.4); MONOCYTES # (AUTO) 1.2 K/uL (0.4-2.0); MONOCYTES % (AUTO) 13.2 (0-10); NEUTROPHILS # (AUTO) 6.6 K/ul (2.0-6.9); NEUTROPHILS % (AUTO) 71.2 % (42.2-75.2); PLATELET COUNT 354 10^3/uL (140-440); RDW COEFFICIENT OF VARIATION 15.5 % (11.6-14.8); RED BLOOD COUNT 3.83 10^6/ul (4.20-5.40); WHITE BLOOD COUNT 9.33 K/ul (4.6-10.2)
[2021-07-17 05:32] LABS: ALANINE AMINOTRANSFERASE 93.2 U/L (0-35); ALBUMIN 2.81 g/dL (3.5-5.0); ALKALINE PHOSPHATASE 109.4 U/L (53-141); BILIRUBIN,TOTAL 0.3 mg/dL (0.2-1.3); CALCIUM 8.25 mg/dL (8.4-10.2); CARBON DIOXIDE 28.7 mmol/L (22-30.0); CHLORIDE 105.6 mmol/L (98-107); CREATININE 0.49 mg/dL (0.60-1.30); GLUCOSE 108.4 mg/dL (74-106); POTASSIUM 3.78 mmol/L (3.5-5.1); TOTAL PROTEIN 6.52 g/dL (6.3-8.2)
[2021-07-17] MEDS: NYSTATIN ORAL SUSP PO SCH ×4 (05:59→20:26)
[2021-07-17] MEDS: LASIX TAB PO SCH (05:59)
[2021-07-17] MEDS: SYNTHROID PO SCH (05:59)
[2021-07-17] MEDS: VASOTEC PO SCH ×2 (08:48→20:26)
[2021-07-17] MEDS: PHENOBARBITAL PO SCH ×2 (08:48→20:26)
[2021-07-17] MEDS: K-DUR PO SCH ×2 (08:48→16:25)
[2021-07-17] MEDS: MULTIVITAMIN TABLET PO SCH (08:48)
[2021-07-17] MEDS: COREG PO SCH ×2 (08:48→16:26)
[2021-07-17] MEDS: MAG-OX PO SCH (08:48)
[2021-07-17] MEDS: ASPIRIN CHEWABLE PO SCH (08:48)
[2021-07-17] MEDS: LEVAQUIN 750 MG/150 ML D5W 750 MG/150 ML BAG IV SCH (08:49)
[2021-07-17] MEDS: DECADRON IM SCH (08:49)
--- NOTE | 2021-07-17 08:50 | PCM.PROG ---
Attending Provider: ATTENDING PROVIDER: Dr. BART CAICEDO This patient is seen with Kayleigh Gupta, Nurse Practitioner. DATE OF SERVICE: 07/17/21 SUBJECTIVE: This 80 year old /WHITE F was hospitalized 07/06/21. The patient is resting comfortably. Still complaining of achenes. She is sating on 4 liters 80%. Oxygen saturation is 88%on 5 liters. Denies any cough or fever. REVIEW OF SYSTEMS: CONSTITUTIONAL: No night sweats. No fatigue, malaise, lethargy. No fever or chil ls. Weakness. Achenes HEENT: Eyes: No visual changes. No eye pain. No eye discharge. ENT: No runny nose. No epistaxis. No sinus pain. No odynophagia. No congestion. RESPIRATORY: No cough, no congestion. No hemoptysis. Shortness of breath. CARDIOVASCULAR: No angina symptoms. No CHF symptoms. No atypical chest pain for CAD. No palpitations. No orthopnea.. GASTROINTESTINAL: No abdominal pain. No nausea or vomiting. No diarrhea or constipation. No hematemesis. No hematochezia. GENITOURINARY: No urgency. No frequency. No dysuria. No hematuria. No obstructive symptoms. No discharge. No pain. No significant abnormal bleeding. MUSCULOSKELETAL: No musculoskeletal pain; no joint swelling. NEUROLOGICAL: Awake, alert, oriented to time, place and person. No headache. No neck pain. No syncope. No seizures. No dizziness. PSYCHIATRIC: Not anxious. No depression. No suicidal thoughts. No homicidal tho ughts. SKIN: No rash. No lesions. No wounds. ENDOCRINE: No unexplained weight loss. No weight gain. HEMATOLOGIC/LYMPHATIC: No anemia. No purpura. No petechiae. No prolonged or excessive bleeding. No palpable lymph nodes. PHYSICAL EXAMINATION: GENERAL: The patient is awake, alert and oriented, sitting in chair in no distress. VITAL SIGNS: Temperature 98.3 F, Pulse 86, Respiratory Rate 18, BP 168/74, Pulse Ox 88% HEENT: Head normocephalic, atraumatic. Eyes: Extraocular muscles are intact. Pupils are equal, round and reactive to light and accommodation. Ears: No lesions. Nose appeared normal. Throat: No exudate or erythema. NECK: Supple. No JVD, no carotid bruit. No lymphadenopathy or thyromegaly. LUNGS: Diminished breath sounds, bilateral rales right greater than left. Clear to auscultation. Percussion note normal. Chest symmetrical. HEART: S1, S2, no S3. No murmurs. No cyanosis or clubbing. No ascites. Pulses: Dorsalis pedis and posterior tibial pulses +1 to +2 both sides. ABDOMEN: Soft. Non-tender. Bowel sounds active. No CVA tenderness. No mass felt. EXTREMITIES: No edema. Full range of motion of all extremities, equal. NEUROLOGIC: No focal deficit. Cranial nerves II through XII are grossly intact. No headache. No double vision. SKIN: Not dry. Intact. Turgor-normal. LYMPHATIC: No palpable lymph nodes/no lymphedema. MUSCULOSKELETAL: Normal joints with no swelling. Muscle tone is normal. LAB REVIEW: 07/17/21 04:48 07/17/21 04:48 07/17/21 04:48: Sodium 137.0, Potassium 3.78, Chloride 105.6, Carbon Dioxide 28.7, Anion Gap 6.48, BUN 8.0, Creatinine 0.49 L, Estimated GFR (MDRD) 122.00, BUN/Creatinine Ratio 16.32, Glucose 108.4 H, Calcium 8.25 L, Total Bilirubin 0.30, AST 96.0 H, ALT 93.2 H, Alkaline Phosphatase 109.4, Total Protein 6.52, Albumin 2.81 L, Globulin 3.71, Albumin/Globulin Ratio 0.75 07/17/21 04:48: WBC 9.33, RBC 3.83 L, Hgb 9.8 L, Hct 31.4 L, MCV 82.0, MCH 25.6 L, MCHC 31.2 L, RDW Coeff of Breanne 15.5 H, Plt Count 354 D, Immature Gran % (A uto) 0.6, Neut % (Auto) 71.2, Lymph % (Auto) 14.6, Brewster % (Auto) 13.2 H, Eos % (Auto) 0.1, Baso % (Auto) 0.3, Neut # (Auto) 6.6, Lymph # (Auto) 1.4, Brewster # (Auto) 1.2, Eos # (Auto) 0.0, Baso # (Auto) 0.0, Immature Gran # (Auto) 0.1 ASSESSMENT: Please see below. 1. Bilateral pneumonia 2. Acute respiratory failure 3. Anemia 4. Generalized weakness. PLAN: 1. Echo 2. Norvasc 5mg BID 3. Repeat chest x-ray 4. Incentive spirometer 5. Colace 100mg BID 6. Discontinue Toradol Plan and coordination of the patient's care discussed in the presence of Sack Sewer and nurse. SCRIBED BY: Jackeline GOTTLIEBist scribed while in presence of service performed by Dr. Caicedo/Kayleigh Gupta APRN on 07/17/21 ([id number])
[2021-07-17 09:03] LABS: ABG O2 HGB 90.6 % (95-100); BEecf 4.9 (-2.0-3.0); COHb 2.5 (0.5-1.5); HCO3 27.8 (21-28); MetHb 1.1 (0-1.5); TCO2 28.8 (19-24); sO2 91.9 % (94-98); tHb 10.7 g/dl (11.7-17.4)
[2021-07-17] MEDS: NORVASC PO SCH ×2 (09:04→20:26)
[2021-07-17] MEDS: COLACE PO SCH ×2 (09:04→20:26)
[2021-07-17] MEDS: NYSTOP POWDER TP SCH ×3 (09:05→20:37)
[2021-07-17 09:07] LABS: ABG PH 7.52 (7.35-7.45)
[2021-07-17] MEDS: SYMBICORT 160-4.5 MCG INHALER IH SCH ×2 (09:48→20:37)
[2021-07-17] MEDS: NORCO 5-325 PO PRN (09:54)
--- NOTE | 2021-07-17 10:11 | DI ---
EXAM: Chest single view Date: 07/17/2021 Comparison: Chest x-ray 07/13/2021 History: Cough. Symptoms of asthma FINDINGS: AP upright view of the chest obtained. Cardiac silhouette is mildly enlarged. There is pul monary vascular congestion. There is interval worsening infiltrate and / or atelectasis at both lung bases. There are small bilateral pleural effusions. No pneumothorax. No acute fractures in the ch est. Impression: 1. Interval worsening bibasilar infiltrate and / or atelectasis. 2. New small bilateral pleural effusions.
[2021-07-17] MEDS ORDERED: LASIX ONE (11:25)
[2021-07-17] MEDS: LASIX IVP SCH (11:29)
[2021-07-17] MEDS: ROCEPHIN 1 GM/50 ML D5W 1 GM/50 ML BAG IV SCH (11:31)
[2021-07-17] MEDS: HUMALOG SUBCUT PRN ×3 (11:34→20:27)
[2021-07-17] MEDS: DOXY-100 100 MG in SODIUM CHLORIDE 100ML 100 ML IV SCH ×2 (12:48→20:26)
[2021-07-17] MEDS: VENTOLIN HFA (PER PUFF-WITH SPACER) IH SCH ×2 (14:14→20:10)
--- NOTE | 2021-07-17 14:28 | PN ---
DATE OF SERVICE: 07/17/2021 SUBJECTIVE: The patient was seen and examined with the Nurse Practitioner. The patient's saturation had dropped. The chest x-ray shows worsening of pneumonia could be from CHF. She had blood transfusion. We will give IV Lasix 20mg. We will monitor oxygen saturation and CBC and CMP, antibiotics and steroids PROGNOSIS: Guarded TIME SPENT: More than 30 minutes. Plan and coordination of the patient's care discussed in the presence of nurse. SHREYA
--- NOTE | 2021-07-17 14:39 | PN ---
DATE OF SERVICE: 07/15/2021 SUBJECTIVE: 80 year old white female hospitalized with respiratory failure with COVID pneumonia. The patient's condition slowly is improving. Her appetite has improved. The daughter is in the room. She says that she has been eating better. Failing to thrive. Later on in the evening it was reported that was bleeding from rectum bright red. One bloody stool was large in amount likely hemorrhoidal bleeding. The patient's hgb was 8.2 in the morning prior to the bleeding. It was decided that the patient would be given 1 unit of packed red cell because the patient has been bleeding bright red blood to be done about the hemorrhoidal bleeding at present time not know how much it is going to be happen. The patient being fatigue and tired with failure to thrive. COVID 19 pneumonia we will give her one unit of packed red cells. Encourage the patient to eat. REVIEW OF SYSTEMS: CONSTITUTIONAL: No night sweats. Still fatigue and tired. No fever or chills. Still weakness. HEENT: Eyes: No visual changes. No eye pain. No eye discharge. ENT: No runny nose. No epistaxis. No sinus pain. No sore throat. No odynophagia. No congestion. RESPIRATORY: No cough, no congestion. No hemoptysis. No shortness of breath. CARDIOVASCULAR: No angina symptoms. No CHF symptoms. No atypical chest pain for CAD. No palpitations. No PND. No orthopnea. GASTROINTESTINAL: No abdominal pain. No nausea or vomiting. No diarrhea or constipation. No hematemesis. No hematochezia. GENITOURINARY: No urgency. No frequency. No dysuria. No hematuria. No obstructive symptoms. No discharge. No pain. No significant abnormal bleeding. MUSCULOSKELETAL: No musculoskeletal pain; no joint swelling. NEUROLOGICAL: No headache. No neck pain. No syncope. No seizures. No dizziness. PSYCHIATRIC: Not anxious. No depression. No suicidal thoughts. No homicidal thoughts. SKIN: No rash. No lesions. No wounds. ENDOCRINE: No unexplained weight loss. No weight gain. HEMATOLOGIC/LYMPHATIC: No anemia. No purpura. No petechiae. No prolonged or excessive bleeding. No palpable lymph nodes. PHYSICAL EXAMINATION: VITAL SIGNS: Temperature 98.4, pulse 85, respiratory rate 16, blood pressure 143/67 and pulse ox 90%. HEENT: Head normocephalic, atraumatic. Eyes: Extraocular muscles are intact. Pupils are equal, round and reactive to light and accommodation. Ears: No lesions. Nose appeared normal. Throat: No exudate or erythema. NECK: Supple. No JVD, no carotid bruit. No lymphadenopathy or thyromegaly. LUNGS: Crepitations dry bilaterally. Clear to auscultation. Percussion note normal. Chest symmetrical. HEART: S1, S2, no S3. No murmurs. No cyanosis or clubbing. No ascites. Pulses: Dorsalis pedis and posterior tibial pulses +1 to +2 bilaterally. ABDOMEN: Soft. Nontender. Bowel sounds active. No CVA tenderness. No mass felt. EXTREMITIES: No edema. Full range of motion of all extremities, equal. NEUROLOGIC: No focal deficit. Cranial nerves II through XII are grossly intact. No headache. No double vision. SKIN: Not dry. Intact. Turgor - normal. LYMPHATIC: No palpable lymph nodes/no lymphedema. MUSCULOSKELETAL: Normal joints with no swelling. Muscle tone is normal. ASSESSMENT: 1. COVID 19 pneumonia resolving slowly 2. Anemia, symptomatic bright red rectal bleed PLAN: 1. Continue antibiotics 2. We will give one unit of packed red cells. CONDITION: Stable PROGNOSIS: Guarded TIME SPENT: More than 30 minutes. Plan and coordination of the patient's care discussed in the presence of nurse. SHREYA
--- NOTE | 2021-07-17 14:45 | PN ---
DATE OF SERVICE: 07/16/2021 SUBJECTIVE: 80 year old white female hospitalized with respiratory insufficiency with COVID 19 pneumonia. The patient had bright red rectal bleed yesterday with fatigue and having failure to thrive. The patient was given one unit of packed red cells. Bleeding per rectum has stopped for now. REVIEW OF SYSTEMS: CONSTITUTIONAL: No night sweats. No fatigue, malaise, lethargy. No fever or chills. HEENT: Eyes: No visual changes. No eye pain. No eye discharge. ENT: No runny nose. No epistaxis. No sinus pain. No sore throat. No odynophagia. No congestion. RESPIRATORY: No cough, no congestion. No hemoptysis. No shortness of breath. CARDIOVASCULAR: No angina symptoms. No CHF symptoms. No atypical chest pain for CAD. No palpitations. No PND. No orthopnea. GASTROINTESTINAL: No abdominal pain. No nausea or vomiting. No diarrhea or constipation. No hematemesis. No hematochezia. GENITOURINARY: No urgency. No frequency. No dysuria. No hematuria. No obstructive symptoms. No discharge. No pain. No significant abnormal bleeding. MUSCULOSKELETAL: No musculoskeletal pain; no joint swelling. NEUROLOGICAL: No headache. No neck pain. No syncope. No seizures. No dizziness. PSYCHIATRIC: Not anxious. No depression. No suicidal thoughts. No homicidal thoughts. SKIN: No rash. No lesions. No wounds. ENDOCRINE: No unexplained weight loss. No weight gain. HEMATOLOGIC/LYMPHATIC: No anemia. No purpura. No petechiae. No prolonged or excessive bleeding. No palpable lymph nodes. PHYSICAL EXAMINATION: VITAL SIGNS: Temperature 98.1, pulse 87, respiratory rate 18, blood pressure 135/73 and pulse ox 90% on 2 liters. HEENT: Head normocephalic, atraumatic. Eyes: Extraocular muscles are intact. Pupils are equal, round and reactive to light and accommodation. Ears: No lesions. Nose appeared normal. Throat: No exudate or erythema. NECK: Supple. No JVD, no carotid bruit. No lymphadenopathy or thyromegaly. LUNGS: Decreased breath sounds. Creps bilaterally. Clear to auscultation. Percussion note normal. Chest symmetrical. HEART: S1, S2, no S3. No murmurs. No cyanosis or clubbing. No ascites. Pulses: Dorsalis pedis and posterior tibial pulses +1 to +2 bilaterally. ABDOMEN: Soft. Nontender. Bowel sounds active. No CVA tenderness. No mass felt. EXTREMITIES: No edema. Full range of motion of all extremities, equal. NEUROLOGIC: No focal deficit. Cranial nerves II through XII are grossly intact. No headache. No double vision. SKIN: Not dry. Intact. Turgor - normal. LYMPHATIC: No palpable lymph nodes/no lymphedema. MUSCULOSKELETAL: Normal joints with no swelling. Muscle tone is normal. LABS: hgb 10.4, hct 33, WBC 10,000 normal differential, creatinine 0.3, BUN 6, potassium 4.5 ASSESSMENT: 1. Respiratory insufficiency 2. COVID 19 pneumonia 3. Anemia stable, rectal bleed has stopped with hemorrhoidal bleeding PLAN: 1. Continue antibiotics CONDITION: Stable PROGNOSIS: Guarded. TIME SPENT: More than 30 minutes. Plan and coordination of the patient's care discussed in the presence of nurse. SHREYA
[2021-07-18] MEDS: NORCO 5-325 PO PRN (00:41)
[2021-07-18] MEDS: VENTOLIN HFA (PER PUFF-WITH SPACER) IH SCH ×3 (05:00→19:20)
[2021-07-18 05:09] LABS: BASOPHILS % (AUTO) 0.5 % (0.0-3.0); HEMATOCRIT 30.1 % (37.0-47.0); HEMOGLOBIN 9.3 g/dl (12.0-16.0); IMMATURE GRANULOCYTE # (AUTO) 0.1 (0.0-1.0); IMMATURE GRANULOCYTE % (AUTO) 0.6 % (0.0-5.0); LYMPHOCYTES # (AUTO) 1.7 K/uL (0.60-3.4); LYMPHOCYTES % (AUTO) 21.8 (10.0-50.0); MEAN CORPUSCULAR HEMOGLOBIN 25.4 pg (27.0-31.0); MEAN CORPUSCULAR HGB CONC 30.9 (31.8-35.4); MEAN CORPUSCULAR VOLUME 82.2 fl (81.0-99.0); MONOCYTES # (AUTO) 1.1 K/uL (0.4-2.0); NEUTROPHILS # (AUTO) 4.9 K/ul (2.0-6.9); NEUTROPHILS % (AUTO) 63.1 % (42.2-75.2); PLATELET COUNT 334 10^3/uL (140-440); RDW COEFFICIENT OF VARIATION 15.9 % (11.6-14.8); RED BLOOD COUNT 3.66 10^6/ul (4.20-5.40); WHITE BLOOD COUNT 7.72 K/ul (4.6-10.2)
[2021-07-18 05:22] LABS: ALANINE AMINOTRANSFERASE 97.6 U/L (0-35); ALBUMIN 2.69 g/dL (3.5-5.0); ALKALINE PHOSPHATASE 104.6 U/L (53-141); ASPARTATE AMINO TRANSFERASE 109.3 U/L (14-36); BILIRUBIN,TOTAL 0.25 mg/dL (0.2-1.3); CALCIUM 8.14 mg/dL (8.4-10.2); CARBON DIOXIDE 29.5 mmol/L (22-30.0); CREATININE 0.53 mg/dL (0.60-1.30); GLUCOSE 100.1 mg/dL (74-106); POTASSIUM 3.81 mmol/L (3.5-5.1); TOTAL PROTEIN 6.24 g/dL (6.3-8.2)
[2021-07-18] MEDS: SYNTHROID PO SCH (05:38)
[2021-07-18] MEDS: LASIX IVP SCH (05:38)
[2021-07-18] MEDS: NYSTATIN ORAL SUSP PO SCH ×4 (05:48→20:31)
[2021-07-18 05:49] LABS: ABG PH 7.49 (7.35-7.45)
[2021-07-18 05:50] LABS: BEecf 5.7 (-2.0-3.0); COHb 2.7 (0.5-1.5); MetHb 1.1 (0-1.5); TCO2 30.2 (19-24)
[2021-07-18 05:51] LABS: ABG O2 HGB 84.9 % (95-100); sO2 84.7 % (94-98); tHb 11.2 g/dl (11.7-17.4)
[2021-07-18] MEDS: ASPIRIN CHEWABLE PO SCH (09:04)
[2021-07-18] MEDS: PHENOBARBITAL PO SCH ×2 (09:04→20:32)
[2021-07-18] MEDS: DECADRON IM SCH (09:04)
[2021-07-18] MEDS: VASOTEC PO SCH ×2 (09:04→20:31)
[2021-07-18] MEDS: ULTRAM PO SCH ×2 (09:04→20:32)
[2021-07-18] MEDS: MAG-OX PO SCH (09:04)
[2021-07-18] MEDS: COREG PO SCH ×2 (09:04→16:49)
[2021-07-18] MEDS: MULTIVITAMIN TABLET PO SCH (09:05)
[2021-07-18] MEDS: K-DUR PO SCH ×2 (09:05→16:50)
[2021-07-18] MEDS: COLACE PO SCH ×2 (09:05→20:32)
[2021-07-18] MEDS: NORVASC PO SCH ×2 (09:05→20:32)
[2021-07-18] MEDS: SYMBICORT 160-4.5 MCG INHALER IH SCH ×2 (09:06→20:32)
[2021-07-18] MEDS: NYSTOP POWDER TP SCH ×3 (09:06→20:32)
--- NOTE | 2021-07-18 09:06 | PCM.PROG ---
Attending Provider: ATTENDING PROVIDER: Dr. BART CAICEDO This patient is seen with Kayleigh Gupta, Nurse Practitioner. DATE OF SERVICE: 07/18/21 SUBJECTIVE: This 80 year old /WHITE F was hospitalized 07/06/21. The patient is resting comfortably. ABG done this morning while the patient was sleeping, slightly worse than yesterday. Oxygen saturation has improved after the patient is up in the chair, more alert. She has complained of achenes and back pain. On admission CT of L spine and c spine were negative. Did show nondisplaced L4 fracture. The patient denies any shortness of breath. REVIEW OF SYSTEMS: CONSTITUTIONAL: No night sweats. No fatigue, malaise, lethargy. No fever or chills. Weakness. HEENT: Eyes: No visual changes. No eye pain. No eye discharge. ENT: No runny nose. No epistaxis. No sinus pain. No odynophagia. No congestion. RESPIRATORY: No cough, no congestion. No hemoptysis. No shortness of breath. CARDIOVASCULAR: No angina symptoms. No CHF symptoms. No atypical chest pain for CAD. No palpitations. No orthopnea.. GASTROINTESTINAL: No abdominal pain. No nausea or vomiting. No diarrhea or constipation. No hematemesis. No hematochezia. GENITOURINARY: No urgency. No frequency. No dysuria. No hematuria. No obstructive symptoms. No discharge. No pain. No significant abnormal bleeding. MUSCULOSKELETAL: No musculoskeletal pain; no joint swelling. Generalized pain. Back pain NEUROLOGICAL: Awake, alert, oriented to time, place and person. No headache. No neck pain. No syncope. No seizures. No dizziness. PSYCHIATRIC: Not anxious. No depression. No suicidal thoughts. No homicidal thoughts. SKIN: No rash. No lesions. No wounds. ENDOCRINE: No unexplained weight loss. No weight gain. HEMATOLOGIC/LYMPHATIC: No anemia. No purpura. No petechiae. No prolonged or excessive bleeding. No palpable lymph nodes. PHYSICAL EXAMINATION: GENERAL: The patient is awake, alert and oriented, sitting in chair in no distress. VITAL SIGNS: Temperature 97.7 F, Pulse 80, Respiratory Rate 20, BP 139/71, Pulse Ox 97% HEENT: Head normocephalic, atraumatic. Eyes: Extraocular muscles are intact. Pupils are equal, round and reactive to light and accommodation. Ears: No lesions. Nose appeared normal. Throat: No exudate or erythema. NECK: Supple. No JVD, no carotid bruit. No lymphadenopathy or thyromegaly. LUNGS: Diminished breath sounds. Clear to auscultation. Percussion note normal. Chest symmetrical. HEART: S1, S2, no S3. No murmurs. No cyanosis or clubbing. No ascites. Pulses: Dorsalis pedis and posterior tibial pulses +1 to +2 both sides. ABDOMEN: Soft. Non-tender. Bowel sounds active. No CVA tenderness. No mass felt. EXTREMITIES: No edema. Full range of motion of all extremities, equal. NEUROLOGIC: No focal deficit. Cranial nerves II through XII are grossly intact. No headache. No double vision. SKIN: Not dry. Intact. Turgor-normal. LYMPHATIC: No palpable lymph nodes/no lymphedema. MUSCULOSKELETAL: Normal joints with no swelling. Muscle tone is normal. LAB REVIEW: 07/18/21 04:40 07/18/21 04:40 07/18/21 05:00: Puncture Site Lrad, Base Excess 5.7 H, O2 Saturation 84.7 L, ABG pH 7.49 H, ABG pCO2 38.0, ABG pO2 45.0 L*, ABG HCO3 29.0 H, ABG Total CO2 30.2 H , Joe Test +, Hemoglobin 1.1, Oxyhemoglobin 84.9 L, Carboxyhemoglobin 2.7 H, Total Hemoglobin 11.2 L, O2 Delivery Device Nc, Oxygen Liter Flow 5.00, FiO2 % 40.0 07/18/21 04:40: Sodium 137.0, Potassium 3.81, Chloride 104.0, Carbon Dioxide 29.5, Anion Gap 7.31, BUN 11.0, Creatinine 0.53 L, Estimated GFR (MDRD) 112.00, BUN/Creatinine Ratio 20.75, Glucose 100.1, Calcium 8.14 L, Total Bilirubin 0.25, AST 109.3 H, ALT 97.6 H, Alkaline Phosphatase 104.6, Total Protein 6.24 L, Albumin 2.69 L, Globulin 3.55, Albumin/Globulin Ratio 0.75 07/18/21 04:40: WBC 7.72, RBC 3.66 L, Hgb 9.3 L, Hct 30.1 L, MCV 82.2, MCH 25.4 L, MCHC 30.9 L, RDW Coeff of Breanne 15.9 H, Plt Count 334, Immature Gran % (Auto) 0.6, Neut % (Auto) 63.1, Lymph % (Auto) 21.8, Bonner % (Auto) 14.0 H, Eos % (Auto) 0.0, Baso % (Auto) 0.5, Neut # (Auto) 4.9, Lymph # (Auto) 1.7, Bonner # (Auto) 1.1, Eos # (Auto) 0.0, Baso # (Auto) 0.0, Immature Gran # (Auto) 0.1 07/17/21 08:49: Puncture Site R rad, Base Excess 4.9 H, O2 Saturation 91.9 L, ABG pH 7.52 H*, ABG pCO2 34.0 L, ABG pO2 56.0 L*, ABG HCO3 27.8, ABG Total CO2 28.8 H, Joe Test Y, Hemoglobin 1.1, Oxyhemoglobin 90.6 L, Carboxyhemoglobin 2.5 H, Total Hemoglobin 10.7 L, O2 Delivery Device Cannula, Oxygen Liter Flow 5.00 ASSESSMENT: Please see below. 1. Acute respiratory failure 2. Previous COVID pneumonia 3. Generalized pain 4. Anemia PLAN: 1. 5 liters canula during the day and 6 liters at night 2. T spine x-ray 3. We changed IV antibiotics after worsening chest x-ray Plan and coordination of the patient's care discussed in the presence of Conduit Bender and nurse. SCRIBED BY: Stephanie GOTTLIEB scribed while in presence of service performed by Dr. Caicedo/Kayleigh Gupta APRN on 07/18/21 (0807)
[2021-07-18] MEDS: ROCEPHIN 1 GM/50 ML D5W 1 GM/50 ML BAG IV SCH (10:05)
[2021-07-18] MEDS: DOXY-100 100 MG in SODIUM CHLORIDE 100ML 100 ML IV SCH (11:21)
[2021-07-18] MEDS: HUMALOG SUBCUT PRN ×3 (12:21→20:33)
[2021-07-18] MEDS: DOXYCYCLINE HYCLATE PO SCH ×2 (12:45→20:31)
--- NOTE | 2021-07-18 16:41 | DI ---
Exam: Thoracic spine three views Date: 07/18/2021 Comparison: None History: Back pain FINDINGS: AP, lateral, and swimmers view of the thoracic spine obtained. No acute fracture. Verteb ral bodies are normal in height and alignment. There is left lower lobe consolidation, which may rep resent pneumonia. Impression: 1. No acute bony abnormality. 2. Left lower lobe pulmonary consolidation, which may represent pneumonia.
[2021-07-19] MEDS: NORCO 5-325 PO PRN (02:43)
[2021-07-19] MEDS: VENTOLIN HFA (PER PUFF-WITH SPACER) IH SCH ×3 (04:35→19:36)
[2021-07-19 04:58] LABS: BASOPHILS % (AUTO) 0.6 % (0.0-3.0); EOSINOPHILS % (AUTO) 0.3 % (0.0-7.0); HEMATOCRIT 31.2 % (37.0-47.0); HEMOGLOBIN 9.8 g/dl (12.0-16.0); IMMATURE GRANULOCYTE # (AUTO) 0.1 (0.0-1.0); IMMATURE GRANULOCYTE % (AUTO) 0.8 % (0.0-5.0); LYMPHOCYTES # (AUTO) 1.6 K/uL (0.60-3.4); LYMPHOCYTES % (AUTO) 22.5 (10.0-50.0); MEAN CORPUSCULAR HEMOGLOBIN 25.9 pg (27.0-31.0); MEAN CORPUSCULAR HGB CONC 31.4 (31.8-35.4); MEAN CORPUSCULAR VOLUME 82.5 fl (81.0-99.0); MONOCYTES # (AUTO) 1.1 K/uL (0.4-2.0); MONOCYTES % (AUTO) 14.8 (0-10); NEUTROPHILS # (AUTO) 4.4 K/ul (2.0-6.9); PLATELET COUNT 347 10^3/uL (140-440); RDW COEFFICIENT OF VARIATION 15.9 % (11.6-14.8); RED BLOOD COUNT 3.78 10^6/ul (4.20-5.40); WHITE BLOOD COUNT 7.24 K/ul (4.6-10.2)
[2021-07-19 05:11] LABS: ALBUMIN 2.92 g/dL (3.5-5.0); ALKALINE PHOSPHATASE 113.8 U/L (53-141); ASPARTATE AMINO TRANSFERASE 86.5 U/L (14-36); BILIRUBIN,TOTAL 0.31 mg/dL (0.2-1.3); BLOOD UREA NITROGEN 13.5 mg/dL (7-17); CALCIUM 8.41 mg/dL (8.4-10.2); CHLORIDE 103.2 mmol/L (98-107); CREATININE 0.48 mg/dL (0.60-1.30); GLUCOSE 97.5 mg/dL (74-106); POTASSIUM 3.86 mmol/L (3.5-5.1); SODIUM 136.8 mmol/L (134.5-145); TOTAL PROTEIN 6.67 g/dL (6.3-8.2)
[2021-07-19 05:41] LABS: ABG O2 HGB 91.1 % (95-100); ABG PH 7.45 (7.35-7.45); BEecf 5.9 (-2.0-3.0); COHb 2.6 (0.5-1.5); HCO3 29.9 (21-28); MetHb 1.1 (0-1.5); TCO2 31.2 (19-24); sO2 92.1 % (94-98); tHb 10.6 g/dl (11.7-17.4)
[2021-07-19] MEDS: SYNTHROID PO SCH (05:56)
[2021-07-19] MEDS: NYSTATIN ORAL SUSP PO SCH ×4 (05:56→20:30)
[2021-07-19] MEDS: LASIX IM SCH ×2 (05:57→06:05)
[2021-07-19] MEDS: LASIX TAB PO SCH (06:37)
[2021-07-19] MEDS: ROCEPHIN 1 GM VIAL IM SCH (08:52)
[2021-07-19] MEDS: LIDOCAINE HCL 1% SDV IM SCH (08:52)
[2021-07-19] MEDS: COLACE PO SCH ×2 (08:53→20:30)
[2021-07-19] MEDS: ASPIRIN CHEWABLE PO SCH (08:53)
[2021-07-19] MEDS: COREG PO SCH ×2 (08:53→17:45)
[2021-07-19] MEDS: VASOTEC PO SCH ×2 (08:53→20:30)
[2021-07-19] MEDS: PHENOBARBITAL PO SCH ×2 (08:53→20:30)
[2021-07-19] MEDS: DOXYCYCLINE HYCLATE PO SCH ×2 (08:53→20:30)
[2021-07-19] MEDS: MAG-OX PO SCH (08:53)
[2021-07-19] MEDS: K-DUR PO SCH ×2 (08:54→17:45)
[2021-07-19] MEDS: NORVASC PO SCH ×2 (08:54→20:30)
[2021-07-19] MEDS: MULTIVITAMIN TABLET PO SCH (08:54)
[2021-07-19] MEDS: ULTRAM PO SCH ×2 (08:54→20:30)
[2021-07-19] MEDS: DECADRON IM SCH (08:54)
[2021-07-19] MEDS: NYSTOP POWDER TP SCH ×3 (08:55→20:36)
[2021-07-19] MEDS: SYMBICORT 160-4.5 MCG INHALER IH SCH ×2 (08:55→20:36)
[2021-07-19] MEDS ORDERED: NORCO 5-325 PO PRN (11:25)
[2021-07-19] MEDS: HUMALOG SUBCUT PRN ×3 (12:35→20:30)
[2021-07-19] MEDS ORDERED: TORADOL IVP SCH (13:00)
[2021-07-19] MEDS: TORADOL IM SCH ×2 (14:55→20:29)
[2021-07-20] MEDS: TYLENOL PO PRN (03:04)
[2021-07-20 05:02] LABS: ABG O2 HGB 89.1 % (95-100); ABG PH 7.46 (7.35-7.45); BEecf 6.1 (-2.0-3.0); COHb 2.9 (0.5-1.5); HCO3 29.9 (21-28); MetHb 0.4 (0-1.5); TCO2 31.2 (19-24); sO2 89.5 % (94-98); tHb 17.3 g/dl (11.7-17.4)
[2021-07-20] MEDS: VENTOLIN HFA (PER PUFF-WITH SPACER) IH SCH ×3 (05:08→20:21)
[2021-07-20 05:19] LABS: BASOPHILS % (AUTO) 0.5 % (0.0-3.0); EOSINOPHILS % (AUTO) 0.3 % (0.0-7.0); HEMATOCRIT 32.7 % (37.0-47.0); HEMOGLOBIN 9.8 g/dl (12.0-16.0); IMMATURE GRANULOCYTE # (AUTO) 0.1 (0.0-1.0); IMMATURE GRANULOCYTE % (AUTO) 0.7 % (0.0-5.0); LYMPHOCYTES # (AUTO) 1.7 K/uL (0.60-3.4); LYMPHOCYTES % (AUTO) 23.1 (10.0-50.0); MEAN CORPUSCULAR HEMOGLOBIN 25.4 pg (27.0-31.0); MEAN CORPUSCULAR VOLUME 84.7 fl (81.0-99.0); MONOCYTES % (AUTO) 14.1 (0-10); NEUTROPHILS # (AUTO) 4.5 K/ul (2.0-6.9); NEUTROPHILS % (AUTO) 61.3 % (42.2-75.2); PLATELET COUNT 336 10^3/uL (140-440); RDW COEFFICIENT OF VARIATION 16.2 % (11.6-14.8); RED BLOOD COUNT 3.86 10^6/ul (4.20-5.40); WHITE BLOOD COUNT 7.31 K/ul (4.6-10.2)
[2021-07-20 05:34] LABS: ALANINE AMINOTRANSFERASE 71.4 U/L (0-35); ALBUMIN 2.77 g/dL (3.5-5.0); ALKALINE PHOSPHATASE 105.1 U/L (53-141); ASPARTATE AMINO TRANSFERASE 61.7 U/L (14-36); BILIRUBIN,TOTAL 0.24 mg/dL (0.2-1.3); BLOOD UREA NITROGEN 18.4 mg/dL (7-17); CALCIUM 8.5 mg/dL (8.4-10.2); CARBON DIOXIDE 27.6 mmol/L (22-30.0); CHLORIDE 103.1 mmol/L (98-107); CREATININE 0.52 mg/dL (0.60-1.30); GLUCOSE 95.1 mg/dL (74-106); POTASSIUM 4.04 mmol/L (3.5-5.1); SODIUM 136.4 mmol/L (134.5-145); TOTAL PROTEIN 6.33 g/dL (6.3-8.2)
[2021-07-20] MEDS: NYSTATIN ORAL SUSP PO SCH ×4 (05:44→21:13)
[2021-07-20] MEDS: SYNTHROID PO SCH (05:45)
[2021-07-20] MEDS: TORADOL IM SCH ×3 (05:45→21:13)
[2021-07-20] MEDS: LASIX TAB PO SCH (05:45)
--- NOTE | 2021-07-20 08:58 | PCM.PROG ---
Attending Provider: ATTENDING PROVIDER: Dr. BART CAICEDO This patient is seen with Kayleigh Gupta, Nurse Practitioner. DATE OF SERVICE: 07/20/21 SUBJECTIVE: This 80 year old /WHITE F was hospitalized 07/06/21. The patient was very weak yesterday, would not walk. Blood pressure is improved. REVIEW OF SYSTEMS: CONSTITUTIONAL: No night sweats. No fatigue, malaise, lethargy. No fever or chills. Weakness. HEENT: Eyes: No visual changes. No eye pain. No eye discharge. ENT: No runny nose. No epistaxis. No sinus pain. No odynophagia. No congestion. RESPIRATORY: Cough, no congestion. No hemoptysis. No shortness of breath. CARDIOVASCULAR: No angina symptoms. No CHF symptoms. No atypical chest pain for CAD. No palpitations. No orthopnea.. GASTROINTESTINAL: No abdominal pain. No nausea or vomiting. No diarrhea or constipation. No hematemesis. No hematochezia. GENITOURINARY: No urgency. No frequency. No dysuria. No hematuria. No obstructive symptoms. No discharge. No pain. No significant abnormal bleeding. MUSCULOSKELETAL: No musculoskeletal pain; no joint swelling. NEUROLOGICAL: Awake, alert, oriented to time, place and person. No headache. No neck pain. No syncope. No seizures. No dizziness. PSYCHIATRIC: Not anxious. No depression. No suicidal thoughts. No homicidal thoughts. SKIN: No rash. No lesions. No wounds. ENDOCRINE: No unexplained weight loss. No weight gain. HEMATOLOGIC/LYMPHATIC: No anemia. No purpura. No petechiae. No prolonged or excessive bleeding. No palpable lymph nodes. PHYSICAL EXAMINATION: GENERAL: The patient is awake, alert and oriented, sitting in bed in no distress. VITAL SIGNS: Temperature 97.9 F, Pulse 53, Respiratory Rate 16, BP 155/66, Pulse Ox 89% HEENT: Head normocephalic, atraumatic. Eyes: Extraocular muscles are intact. Pupils are equal, round and reactive to light and accommodation. Ears: No lesions. Nose appeared normal. Throat: No exudate or erythema. NECK: Supple. No JVD, no carotid bruit. No lymphadenopathy or thyromegaly. LUNGS: Clear to auscultation. Percussion note normal. Chest symmetrical. HEART: S1, S2, no S3. No murmurs. No cyanosis or clubbing. No ascites. Pulses: Dorsalis pedis and posterior tibial pulses +1 to +2 both sides. ABDOMEN: Soft. Non-tender. Bowel sounds active. No CVA tenderness. No mass felt. EXTREMITIES: No edema. Full range of motion of all extremities, equal. NEUROLOGIC: No focal deficit. Cranial nerves II through XII are grossly intact. No headache. No double vision. SKIN: Not dry. Intact. Turgor-normal. LYMPHATIC: No palpable lymph nodes/no lymphedema. MUSCULOSKELETAL: Normal joints with no swelling. Muscle tone is normal. LAB REVIEW: 07/20/21 05:11 07/20/21 05:11 07/20/21 05:11: Sodium 136.4, Potassium 4.04, Chloride 103.1, Carbon Dioxide 27.6, Anion Gap 9.74, BUN 18.4 H, Creatinine 0.52 L, Estimated GFR (MDRD) 114.00, BUN/Creatinine Ratio 35.38, Glucose 95.1, Calcium 8.50, Total Bilirubin 0.24, AST 61.7 H, ALT 71.4 H, Alkaline Phosphatase 105.1, Total Protein 6.33, Albumin 2.77 L, Globulin 3.56, Albumin/Globulin Ratio 0.77 07/20/21 05:11: WBC 7.31, RBC 3.86 L, Hgb 9.8 L, Hct 32.7 L, MCV 84.7, MCH 25.4 L, MCHC 30.0 L, RDW Coeff of Breanne 16.2 H, Plt Count 336, Immature Gran % (Auto) 0.7, Neut % (Auto) 61.3, Lymph % (Auto) 23.1, Dodge % (Auto) 14.1 H, Eos % (Auto) 0.3, Baso % (Auto) 0.5, Neut # (Auto) 4.5, Lymph # (Auto) 1.7, Dodge # (Auto) 1.0, Eos # (Auto) 0.0, Baso # (Auto) 0.0, Immature Gran # (Auto) 0.1 07/20/21 04:45: Puncture Site Lrad, Base Excess 6.1 H, O2 Saturation 89.5 L, ABG pH 7.46 H, ABG pCO2 42.0, ABG pO2 54.0 L*, ABG HCO3 29.9 H, ABG Total CO2 31.2 H , Joe Test +, Hemoglobin 0.4, Oxyhemoglobin 89.1 L, Carboxyhemoglobin 2.9 H, Total Hemoglobin 17.3, O2 Delivery Device Cannula, Oxygen Liter Flow 5.00, FiO2 % 40.0 ASSESSMENT: Please see below. 1. Respiratory failure 2. History of COVID 19 with persistent pneumonia 3. Anemia 4. Generalized weakness 5. Generalized pain. PLAN: 1. Prednisone 10mg 2. 6 liters of nasal oxygen Plan and coordination of the patient's care discussed in the presence of Business Unit Manager and nurse. SCRIBED BY: JANICE MACHADO [employer] Production Machine Operator scribed while in presence of service performed by Dr. Caicedo/Kayleigh Gupta APRN on 07/20/21 (0800)
[2021-07-20] MEDS: VASOTEC PO SCH ×2 (09:29→21:13)
[2021-07-20] MEDS: PHENOBARBITAL PO SCH ×2 (09:29→21:14)
[2021-07-20] MEDS: ASPIRIN CHEWABLE PO SCH (09:29)
[2021-07-20] MEDS: ULTRAM PO SCH ×2 (09:29→21:14)
[2021-07-20] MEDS: K-DUR PO SCH ×2 (09:29→17:01)
[2021-07-20] MEDS: SYMBICORT 160-4.5 MCG INHALER IH SCH ×2 (09:30→21:15)
[2021-07-20] MEDS: PREDNISONE PO SCH (09:30)
[2021-07-20] MEDS: NORVASC PO SCH ×2 (09:30→21:14)
[2021-07-20] MEDS: MAG-OX PO SCH (09:30)
[2021-07-20] MEDS: COREG PO SCH ×2 (09:30→17:01)
[2021-07-20] MEDS: COLACE PO SCH ×2 (09:30→21:14)
[2021-07-20] MEDS: NYSTOP POWDER TP SCH ×3 (09:30→21:15)
[2021-07-20] MEDS: DOXYCYCLINE HYCLATE PO SCH ×2 (09:30→21:13)
[2021-07-20] MEDS: MULTIVITAMIN TABLET PO SCH (09:30)
[2021-07-20] MEDS: ROCEPHIN 1 GM VIAL IM SCH (10:58)
[2021-07-20] MEDS: LIDOCAINE HCL 1% SDV IM SCH (10:59)
[2021-07-20] MEDS: HUMALOG SUBCUT PRN ×3 (12:06→21:14)
--- NOTE | 2021-07-20 14:33 | PN ---
DATE OF SERVICE: 07/19/2021 SUBJECTIVE: 80 year old white female hospitalized with respiratory insufficiency failure with COVID 19 pneumonia. The patient's condition is fluctuating today. This morning she is somewhat drowsy. The saturation is 90% on 5 liters. REVIEW OF SYSTEMS: CONSTITUTIONAL: No night sweats. No fatigue, malaise, lethargy. No fever or chills. Sleepy. HEENT: Eyes: No visual changes. No eye pain. No eye discharge. ENT: No runny nose. No epistaxis. No sinus pain. No sore throat. No odynophagia. No congestion. RESPIRATORY: No cough, no congestion. No hemoptysis. No shortness of breath. CARDIOVASCULAR: No angina symptoms. No CHF symptoms. No atypical chest pain for CAD. No palpitations. No PND. No orthopnea. GASTROINTESTINAL: No abdominal pain. No nausea or vomiting. No diarrhea or constipation. No hematemesis. No hematochezia. GENITOURINARY: No urgency. No frequency. No dysuria. No hematuria. No obstructive symptoms. No discharge. No pain. No significant abnormal bleeding. MUSCULOSKELETAL: No musculoskeletal pain; no joint swelling. NEUROLOGICAL: No headache. No neck pain. No syncope. No seizures. No dizziness. PSYCHIATRIC: Not anxious. No depression. No suicidal thoughts. No homicidal thoughts. SKIN: No rash. No lesions. No wounds. ENDOCRINE: No unexplained weight loss. No weight gain. HEMATOLOGIC/LYMPHATIC: No anemia. No purpura. No petechiae. No prolonged or excessive bleeding. No palpable lymph nodes. PHYSICAL EXAMINATION: VITAL SIGNS: Temperature 97.2, pulse 78, respiratory rate 18, blood pressure 135/60 HEENT: Head normocephalic, atraumatic. Eyes: Extraocular muscles are intact. Pupils are equal, round and reactive to light and accommodation. Ears: No lesions. Nose appeared normal. Throat: No exudate or erythema. NECK: Supple. No JVD, no carotid bruit. No lymphadenopathy or thyromegaly. LUNGS: Decreased breath sounds but good air entry. Percussion note normal. Chest symmetrical. HEART: S1, S2, no S3. No murmurs. No cyanosis or clubbing. No ascites. Pulses: Dorsalis pedis and posterior tibial pulses +1 to +2 bilaterally. ABDOMEN: Soft. Nontender. Bowel sounds active. No CVA tenderness. No mass felt. EXTREMITIES: No edema. Full range of motion of all extremities, equal. NEUROLOGIC: No focal deficit. Cranial nerves II through XII are grossly intact. No headache. No double vision. SKIN: Not dry. Intact. Turgor - normal. LYMPHATIC: No palpable lymph nodes/no lymphedema. MUSCULOSKELETAL: Normal joints with no swelling. Muscle tone is normal. LABS: Echo showed LVH with enlarged LA cavity but normal LV contractility. ASSESSMENT: 1. COVID pneumonia/Respiratory failure seems to be resolving PLAN: 1. Continue Addison 2. The patient on Toradol 50mg Q 8 hours for pain along with Ultram. Drowsiness could be from Addison that was given at 2:00 in the morning. 3. Continue to encourage the patient to eat. 4. Cardiovascular status is stable. TIME SPENT: More than 30 minutes. Plan and coordination of the patient's care discussed in the presence of nurse. SHREYA
[2021-07-21] MEDS: TYLENOL PO PRN (01:25)
[2021-07-21 05:13] LABS: BASOPHILS % (AUTO) 0.6 % (0.0-3.0); EOSINOPHILS # (AUTO) 0.1 K/ul (0.0-0.7); HEMATOCRIT 30.8 % (37.0-47.0); HEMOGLOBIN 9.2 g/dl (12.0-16.0); IMMATURE GRANULOCYTE % (AUTO) 0.4 % (0.0-5.0); LYMPHOCYTES # (AUTO) 1.3 K/uL (0.60-3.4); LYMPHOCYTES % (AUTO) 19.6 (10.0-50.0); MEAN CORPUSCULAR HEMOGLOBIN 25.9 pg (27.0-31.0); MEAN CORPUSCULAR HGB CONC 29.9 (31.8-35.4); MEAN CORPUSCULAR VOLUME 86.8 fl (81.0-99.0); MONOCYTES # (AUTO) 0.9 K/uL (0.4-2.0); MONOCYTES % (AUTO) 13.2 (0-10); NEUTROPHILS # (AUTO) 4.4 K/ul (2.0-6.9); NEUTROPHILS % (AUTO) 65.2 % (42.2-75.2); PLATELET COUNT 303 10^3/uL (140-440); RDW COEFFICIENT OF VARIATION 16.7 % (11.6-14.8); RED BLOOD COUNT 3.55 10^6/ul (4.20-5.40); WHITE BLOOD COUNT 6.75 K/ul (4.6-10.2)
[2021-07-21 05:25] LABS: ALANINE AMINOTRANSFERASE 51.7 U/L (0-35); ALBUMIN 2.76 g/dL (3.5-5.0); ALKALINE PHOSPHATASE 105.3 U/L (53-141); ASPARTATE AMINO TRANSFERASE 41.9 U/L (14-36); BILIRUBIN,TOTAL 0.24 mg/dL (0.2-1.3); BLOOD UREA NITROGEN 23.3 mg/dL (7-17); CALCIUM 8.33 mg/dL (8.4-10.2); CARBON DIOXIDE 29.4 mmol/L (22-30.0); CHLORIDE 103.5 mmol/L (98-107); CREATININE 0.57 mg/dL (0.60-1.30); GLUCOSE 89.9 mg/dL (74-106); POTASSIUM 4.24 mmol/L (3.5-5.1); SODIUM 137.2 mmol/L (134.5-145); TOTAL PROTEIN 6.3 g/dL (6.3-8.2)
[2021-07-21] MEDS: VENTOLIN HFA (PER PUFF-WITH SPACER) IH SCH ×2 (05:55→14:07)
[2021-07-21] MEDS: TORADOL IM SCH ×2 (05:56→12:39)
[2021-07-21] MEDS: NYSTATIN ORAL SUSP PO SCH ×2 (05:56→11:13)
[2021-07-21] MEDS: LASIX TAB PO SCH (05:56)
[2021-07-21] MEDS: SYNTHROID PO SCH (05:56)
[2021-07-21 06:23] LABS: ABG PH 7.46 (7.35-7.45); BEecf 7.5 (-2.0-3.0); COHb 2.6 (0.5-1.5); HCO3 31.3 (21-28); MetHb 1.1 (0-1.5); TCO2 32.7 (19-24); sO2 95.3 % (94-98); tHb 9.7 g/dl (11.7-17.4)
--- NOTE | 2021-07-21 08:31 | ECHO2D ---
Date of Exam: 07/18/2021 Ordering Physician: DR. BART CAICEDO/Rose STRONG [facility] Room #: 102 Reason for Echo: SOB, COUGH, WEAKNESS M-Mode Normal Adult Results LV Dimensions Normal Adult Results AoV Opening excursions >1.6 >1.6 LVEDD-base- 3.5-5.8 4.7 Ao root dimensions 2.0-3.7 3.4 LVESD-base- 3.1-4.6 L. Atrium dimensions 1.9-3.8 4.3 Post. Wall thickness 0.8-1.1 1.4 IV septum (thickness) 0.7-1.2 1.5 Post. Wall excursion 0.72-1.3 NORMAL Septal motion NORMAL Systolic motion R. Ventricular cavity 1.5-2.0 NORMAL LVEF 60% 68% Paradoxical septal wall motion NORMAL 2-D : 2-D M Mode Echocardiogram was performed using apical four chamber and left parasternal long and short axis views. Mitral, tricuspid and aortic valves appear to be normal. Contractility of the left ventricle seems to be normal, so is the cavity size. ENLARGED LEFT ATRIAL CAVITY SIZE. Aortic root appears to be normal. There is no pericardial effusion. There is no thrombus noted in the left ventricle or left atrial cavity. M-MODE: MV: NORMAL AV: NORMAL TV: NORMAL PV: CHAMBER SIZE: ENLARGED LEFT ATRIAL CAVITY WALL MOTION: NORMAL PERICARDIUM: NORMAL INTERPRETATION: 1. LEFT VENTRICLE HYPERTROPHY WITH ENLARGED LEFT ATRIAL CAVITY 2. NORMAL LEFT VENTRICLE CONTRACTILITY/ NORMAL SIZE 3. NORMAL VALVES MTDD
[2021-07-21] MEDS: ASPIRIN CHEWABLE PO SCH (08:55)
[2021-07-21] MEDS: COLACE PO SCH (08:57)
[2021-07-21] MEDS: COREG PO SCH (08:57)
[2021-07-21] MEDS: DOXYCYCLINE HYCLATE PO SCH (08:57)
[2021-07-21] MEDS: K-DUR PO SCH (08:57)
[2021-07-21] MEDS: NORVASC PO SCH (08:58)
[2021-07-21] MEDS: PHENOBARBITAL PO SCH (08:58)
[2021-07-21] MEDS: MAG-OX PO SCH (08:58)
[2021-07-21] MEDS: MULTIVITAMIN TABLET PO SCH (08:58)
[2021-07-21] MEDS: ULTRAM PO SCH (08:59)
[2021-07-21] MEDS: PREDNISONE PO SCH (08:59)
[2021-07-21] MEDS: VASOTEC PO SCH (08:59)
[2021-07-21] MEDS: SYMBICORT 160-4.5 MCG INHALER IH SCH (08:59)
[2021-07-21] MEDS: ROCEPHIN 1 GM VIAL IM SCH (09:01)
[2021-07-21] MEDS: LIDOCAINE HCL 1% SDV IM SCH (09:01)
[2021-07-21] MEDS: NYSTOP POWDER TP SCH ×2 (09:02→15:42)
[2021-07-21] MEDS: HUMALOG SUBCUT PRN (12:09)
[2021-07-21 13:13] VITALS: BP 144/71; TEMP 97.7
--- NOTE | 2021-07-21 14:16 | CM.DICTOOL ---
ADMISSION: 07/06/21 17:27 DISCHARGE: 07/21/2021 DATE OF SERVICE: 07/21/21 FINAL DIAGNOSIS RESPIRATORY FAILURE HISTORY OF COVID 19 WITH PNEUMONIA ANEMIA H/O ABNORMAL LIVER ENZYMES IN THE HOSPITAL IMPROVING GENERALIZED WEAKNESS GENERALIZED PAIN OROPHARYNGEAL DYSPHAGIA, RESOLVED HYPOKALEMIA - RESOLVED CONTUSIONS/ MULTIPLE SITES OF HEAD AND NECK CERVICAL MUSCLE STRAIN NON-DISPLACED RT LATERAL 2 ND RIB FRACTURE - PER 07/06/21 CT MODERATE DEGENERATIVE CHANGES RT SHOULDER- PER 07/06/21 CT DEGENERATIVE CHANGES LUMBAR SPINE - PER 07/06/21 CT CLONIC DIVERTICULOSIS - PER 07/06/21 CT CLOSED SACRAL FRACTURE COPD COVID ( 06/26/2021 DETECTED PER RAPID) ESSENTIAL HYPERTENSION/LVH HYPERLIPIDEMIA PERIPHERAL VASCULAR DISEASE DIABETES MELLITUS - 2 HYPOTHYROIDISM BRAIN SURGERY AT AGE 45 FROM ENDARTECTOMY COMPLICATION HYSTERECTOMY LT FRONTAL CRANIOTOMY LAST VITALS Temp Pulse Resp BP Pulse Ox 97.6 F 73 18 149/67 H 96 07/21/21 10:00 07/21/21 10:00 07/21/21 10:00 07/21/21 10:00 07/21/21 10:00 TAKE THESE MEDICATIONS AT HOME Acetaminophen (Acetaminophen 325 Mg Tablet) 650 mg PO Q4H PRN PRN Reason: Severe Pain Last Admin: 07/21/21 01:25 Dose: 650 mg Albuterol Sulfate (Albuterol Sulfate (Ventolin Hfa) 18 Gm 1 Puff With Spacer) 2 puff IH RTTID [facility] -- ( NEW) Last Admin: 07/21/21 05:55 Dose: 2 puff Amlodipine Besylate (Amlodipine Besylate 5 Mg Tablet) 5 mg PO AT BEDTIME [facility] -- ( NEW) Last Admin: 07/21/21 08:58 Dose: 5 mg Aspirin (Aspirin 81 Mg Tab.Chew) 81 mg PO DAILYWM [facility] Last Admin: 07/21/21 08:55 Dose: 81 mg Bisacodyl (Bisacodyl 5 Mg Tablet.Dr) 5 mg PO DAILY PRN -- ( NEW) PRN Reason: Constipation Last Admin: 07/16/21 16:45 Dose: 5 mg Budesonide/Formoterol Fumarate (Budesonide/Formoterol Fumarate 160/4.5 Mcg Inhaler) 2 puff IH BID [facility] -- ( NEW) Last Admin: 07/21/21 08:59 Dose: 2 puff Carvedilol (Carvedilol 6.25 Mg Tablet) 12.5 mg PO BIDWM [facility] -- ( NEW) Last Admin: 07/21/21 08:57 Dose: 12.5 mg Docusate Sodium (Docusate Sodium 100 Mg Capsule) 100 mg PO BID [facility] -- ( NEW) Last Admin: 07/21/21 08:57 Dose: 100 mg Enalapril Maleate (Enalapril Maleate 20 Mg Tablet) 20 mg PO BID [facility] Last Admin: 07/21/21 08:59 Dose: 20 mg Furosemide (Furosemide 20 Mg Tablet) 20 mg PO QDAC [facility] -- (NEW) Last Admin: 07/21/21 05:56 Dose: 20 mg Insulin Human Lispro (Insulin Lispro 100 Unit/Ml (3 Ml) Vial) 0 unit SUBCUT PRN PRN; Protocol -- ( NEW) PRN Reason: Hyperglycemia Last Admin: 07/21/21 12:09 Dose: 4 unit Levothyroxine Sodium (Levothyroxine Sodium 50 Mcg Tablet) 50 mcg PO QDAC [facility] Last Admin: 07/21/21 05:56 Dose: 50 mcg Multivitamins (Multivitamin 1 Tab) 1 tab PO DAILY [facility] Last Admin: 07/21/21 08:58 Dose: 1 tab Nystatin (Nystatin 15 Gm Powder) 1 applic TP TID [facility] TO GROINS AND UNDER BREAST -- ( NEW) Last Admin: 07/21/21 09:02 Dose: 1 applic Phenobarbital (Phenobarbital 32.4 Mg Tablet) 64.8 mg PO BID [facility] Last Admin: 07/21/21 08:58 Dose: 64.8 mg Potassium Chloride (Potassium Chloride 20 Meq Tab) 20 meq PO BIDWM [facility] -- ( NEW) Last Admin: 07/21/21 08:57 Dose: 20 meq Prednisone (Prednisone 10 Mg Tablet) 10 mg PO DAILYWM [facility] X 5 MORE DAYS -- ( NEW) Last Admin: 07/21/21 08:59 Dose: 10 mg Tramadol HCl (Tramadol Hcl 50 Mg Tablet) 50 mg PO BID [facility] -- ( NEW) Last Admin: 07/21/21 08:59 Dose: 50 mg KEFLEX 500 MG PO BID X 5 DAYS -- ( NEW) PRAVASTATIN 40 MG PO DAILY GEMFIBROZIL 600 MG PO BID CALCIUM- VITAMIND3- VITAMIN K 1 TABLET PO DAILY ALLERGIES Penicillins Adverse Reaction (Verified 07/06/21 11:30) DISCONTINUED MEDICATIONS NONE NEW PRESCRIPTIONS: 1).Albuterol Sulfate (Albuterol Sulfate (Ventolin Hfa) 18 Gm 1 Puff With Spacer) 2 puff IH RTTID [facility] 2).Amlodipine Besylate (Amlodipine Besylate 5 Mg Tablet) 5 mg PO AT BEDTIME [facility] ) 3).Bisacodyl (Bisacodyl 5 Mg Tablet.Dr) 5 mg PO DAILY PRN 4).Budesonide/Formoterol Fumarate (Budesonide/Formoterol Fumarate 160/4.5 Mcg Inhaler) 2 puff IH BID [facility] 5).Carvedilol (Carvedilol 6.25 Mg Tablet) 12.5 mg PO BIDWM [facility] 6).Docusate Sodium (Docusate Sodium 100 Mg Capsule) 100 mg PO BID [facility] 7).Furosemide (Furosemide 20 Mg Tablet) 20 mg PO QDAC [facility] 8).Insulin Human Lispro (Insulin Lispro 100 Unit/Ml (3 Ml) Vial) 0 unit SUBCUT PRN PRN; Protocol 9).Nystatin (Nystatin 15 Gm Powder) 1 applic TP TID [facility] TO GROINS AND UNDER BREAST 10).Potassium Chloride (Potassium Chloride 20 Meq Tab) 20 meq PO BIDWM [facility] 11).Prednisone (Prednisone 10 Mg Tablet) 10 mg PO DAILYWM [facility] X 5 MORE DAYS 12).Tramadol HCl (Tramadol Hcl 50 Mg Tablet) 50 mg PO BID [facility] 13).KEFLEX 500 MG PO BID X 5 DAYS SMOKING: N/A DISEASE SPECIFIC EDUCATION: PNEUMONIA ACTIVITY OXYGEN [employer]CA[employer] C[employer] PLACEMENT LAB REVIEW: 07/21/21 04:45 07/21/21 04:45 07/21/21 06:13: Puncture Site Rrad, Base Excess 7.5 H, O2 Saturation 95.3, ABG pH 7.46 H, ABG pCO2 44.0, ABG pO2 73.0 L, ABG HCO3 31.3 H, ABG Total CO2 32.7 H, Joe Test +, Hemoglobin 1.1, Oxyhemoglobin 94.0 L, Carboxyhemoglobin 2.6 H, Total Hemoglobin 9.7 L, O2 Delivery Device Cannula, Oxygen Liter Flow 6.00 07/21/21 04:45: Sodium 137.2, Potassium 4.24, Chloride 103.5, Carbon Dioxide 29.4, Anion Gap 8.54, BUN 23.3 H, Creatinine 0.57 L, Estimated GFR (MDRD) 103.00, BUN/Creatinine Ratio 40.87, Glucose 89.9, Calcium 8.33 L, Total Bi lirubin 0.24, AST 41.9 H, ALT 51.7 H, Alkaline Phosphatase 105.3, Total Protein 6.30, Albumin 2.76 L, Globulin 3.54, Albumin/Globulin Ratio 0.77 07/21/21 04:45: WBC 6.75, RBC 3.55 L, Hgb 9.2 L, Hct 30.8 L, MCV 86.8, MCH 25.9 L, MCHC 29.9 L, RDW Coeff of Breanne 16.7 H, Plt Count 303, Immature Gran % (Auto) 0.4, Neut % (Auto) 65.2, Lymph % (Auto) 19.6, Smith % (Auto) 13.2 H, Eos % (Auto) 1.0, Baso % (Auto) 0.6, Neut # (Auto) 4.4, Lymph # (Auto) 1.3, Smith # (Auto) 0.9, Eos # (Auto) 0.1, Baso # (Auto) 0.0, Immature Gran # (Auto) 0.0 PLAN: DISCHARGE : TODAY TO [facility] ACTIVITY: TRANSFERS WITH MECHANICAL LIFT, USES RWX AT TIMES FOR THE FEW STEPS PT, OT AND FISH NET MAKER EVAL AND TREAT DIET: CONSISTENT CARBOHYDRATES, REGULAR CONSISTENCY DECORATING MACHINE TENDER CONSULT DM FOLLOW UP: HUMALOG SS PER DR. CAICEDO PROTOCOL AC AND HS ACCUCHECKS LABS: CBC AND CMP IN A WEEK. THEN CBC , CMP AND AIC EVERY 3 MONTHS LIPIDS, TSH, T4 , PHENOBARBITAL LEVEL EVERY 6 MONTHS OXYGEN: 6 L/M PER N/C CONTINOUS MD FOLLOW UP: DR CAICEDO/CYNTHIA JOY APRN/ WILDER IBANEZ APRN WILL SEE ON ROUNDS CODE STATUS: DO NOT RESUSCITATE MRS BARRERA IS ALERT AND ORIENTED X 4. SHE IS REQUIRING 6 L/M PER N/C OXYGEN CONTINUOS. SHE DENIES ANY SOA. HER PULSE OX HAVE STAYED ABOVE 90% WITH THE 6 L/M. SHE HAD SEVERE VARIOUS BRUISING. THEY ARE FADING WITH SLIGHT DISCOLORATION TO FACE. SHE IS PALE. SHE HAS SOME IRRITATION TO HER SACRUM. SHE HAS MINIMAL IRRITATION TO GROINS AND UNDER HER BREAST. SHE HAS HAD DAYS THAT REQUIRED MECHANICAL LIFT TO TRANSFER AND NON- AMBULATORY. SHE HAS BEEN TAKING A FEW STEPS WITH ASSIST AND RWX ON CERTAIN DAYS. SHE WAS ON PUREED AND NECTAR THICK LIQUIDS, THEN REEVALUATED AND CHANGED BACK TO REGULAR. SHE IS EATING 50%, SOME DAYS BETTER, OTHERS DECREASED. PO FLUID INTAKE SUBSTANTIAL. SHE IS INCONTINENT OF URINE AT TIMES, BUT ALSO USES THE BSC WITH ASSIST. FAMILY HAS CHOSE [facility] FOR THERAPY AND POSSIBLY ASSISTED, SINCE SHE HAS BEEN SO WEAK. MD CYNTHIA POP APRN ALYCE HANNAN, APRN
--- NOTE | 2021-07-24 10:59 | PN ---
DATE OF SERVICE: 07/20/21 SUBJECTIVE: The patient was seen and examined with the Nurse Practitioner. The patient's condition is stable. Vitals are stable but the oxygen saturation fluctuates. The patient is going to be continued on steroids, inhalers. When she is awake advised to eat as much as she could. TIME SPENT: More than 30 minutes. Plan and coordination of the patient's care discussed in the presence of nurse. SHREYA
--- NOTE | 2021-07-24 11:44 | PN ---
DATE OF SERVICE: 07/21/2021 SUBJECTIVE: 80 year old white female hospitalized with respiratory failure with COVID 19 pneumonia. The patient's condition has slowly improved to the point that she is up and about walking around. She has improved. She is oriented to time, place and person. Daily activity and mental status level fluctuates since she gets sleepy at times but overall her condition has improved to the point that she is going to be discharged today to [facility]. The patient's appetite has improved.She seems to be oriented to time, place and person. REVIEW OF SYSTEMS: CONSTITUTIONAL: No night sweats. No fatigue, malaise, lethargy. No fever or chills. HEENT: Eyes: No visual changes. No eye pain. No eye discharge. ENT: No runny nose. No epistaxis. No sinus pain. No sore throat. No odynophagia. No congestion. RESPIRATORY: No cough, no congestion. No hemoptysis. No shortness of breath. CARDIOVASCULAR: No angina symptoms. No CHF symptoms. No atypical chest pain for CAD. No palpitations. No PND. No orthopnea. GASTROINTESTINAL: No abdominal pain. No nausea or vomiting. No diarrhea or constipation. No hematemesis. No hematochezia. GENITOURINARY: No urgency. No frequency. No dysuria. No hematuria. No obstructive symptoms. No discharge. No pain. No significant abnormal bleeding. MUSCULOSKELETAL: No musculoskeletal pain; no joint swelling. NEUROLOGICAL: No headache. No neck pain. No syncope. No seizures. No dizziness. PSYCHIATRIC: Not anxious. No depression. No suicidal thoughts. No homicidal thoughts. SKIN: No rash. No lesions. No wounds. ENDOCRINE: No unexplained weight loss. No weight gain. HEMATOLOGIC/LYMPHATIC: No anemia. No purpura. No petechiae. No prolonged or excessive bleeding. No palpable lymph nodes. PHYSICAL EXAMINATION: VITAL SIGNS: Temperature 97.7, pulse 73, respiratory rate 16, blood pressure 128/60 and pulse ox 95%. HEENT: Head normocephalic, atraumatic. Eyes: Extraocular muscles are intact. Pupils are equal, round and reactive to light and accommodation. Ears: No lesions. Nose appeared normal. Throat: No exudate or erythema. NECK: Supple. No JVD, no carotid bruit. No lymphadenopathy or thyromegaly. LUNGS: Decreased breath sounds but clear to auscultation. Percussion note normal. Chest symmetrical. HEART: S1, S2, no S3. No murmurs. No cyanosis or clubbing. No ascites. Pulses: Dorsalis pedis and posterior tibial pulses +1 to +2 bilaterally. ABDOMEN: Soft. Nontender. Bowel sounds active. No CVA tenderness. No mass felt. EXTREMITIES: No edema. Full range of motion of all extremities, equal. NEUROLOGIC: No focal deficit. Cranial nerves II through XII are grossly intact. No headache. No double vision. SKIN: Not dry. Intact. Turgor - normal. LYMPHATIC: No palpable lymph nodes/no lymphedema. MUSCULOSKELETAL: Normal joints with no swelling. Muscle tone is normal. LABS: Hgb 9.2, hct 30, WBC 6,700 normal differential, creatinine 0.5, BUN 23, potassium 4.2. ASSESSMENT: 1. COVID 19 pneumonia with respiratory failure seems to be under control. The patient's saturation is 95% with 5 liters. PLAN: 1. Discharge the patient home. 2. Keflex and Doxycycline 3. The patient's Omelodipine will be 1 at night. Blood pressure seems to be under control. 4. The patient had retention of fluid. She had 800cc on bladder scan. We will do one time straight cath. 5. The patient's family wants the patient to go to the [facility]. The patient is DNR. TIME SPENT: More than 30 minutes. Plan and coordination of the patient's care discussed in the presence of nurse. SHREYA
--- NOTE | 2021-07-24 12:26 | PN ---
Admission date: Level 5 There were several extensive rest of them intermediate 07/21/2021: D as in discharge MTDD
--- NOTE | 2021-07-24 12:26 | DS ---
DATE OF SERVICE: 07/21/2021 FINAL DIAGNOSIS: RESPIRATORY FAILURE HISTORY OF COVID 19 WITH PNEUMONIA ANEMIA H/O ABNORMAL LIVER ENZYMES IN THE HOSPITAL IMPROVING GENERALIZED WEAKNESS GENERALIZED PAIN OROPHARYNGEAL DYSPHAGIA, RESOLVED HYPOKALEMIA - RESOLVED CONTUSIONS/ MULTIPLE SITES OF HEAD AND NECK CERVICAL MUSCLE STRAIN NON-DISPLACED RT LATERAL 2 ND RIB FRACTURE - PER 07/06/21 CT MODERATE DEGENERATIVE CHANGES RT SHOULDER- PER 07/06/21 CT DEGENERATIVE CHANGES LUMBAR SPINE - PER 07/06/21 CT CLONIC DIVERTICULOSIS - PER 07/06/21 CT CLOSED SACRAL FRACTURE COPD COVID ( 06/26/2021 DETECTED PER RAPID) ESSENTIAL HYPERTENSION/LVH HYPERLIPIDEMIA PERIPHERAL VASCULAR DISEASE DIABETES MELLITUS - 2 HYPOTHYROIDISM BRAIN SURGERY AT AGE 45 FROM ENDARTERECTOMY COMPLICATION HYSTERECTOMY LT FRONTAL CRANIOTOMY LAST VITALS: Temp Pulse Resp BP Pulse Ox 97.6 F 73 18 149/67 H 96 07/21/21 10:00 07/21/21 10:00 07/21/21 10:00 07/21/21 10:00 07/21/21 10:00 TAKE THESE MEDICATIONS AT HOME: Acetaminophen (Acetaminophen 325 Mg Tablet) 650 mg PO Q4H PRN PRN Reason: Severe Pain Last Admin: 07/21/21 01:25 Dose: 650 mg Albuterol Sulfate (Albuterol Sulfate (Ventolin Hfa) 18 Gm 1 Puff With Spacer) 2 puff IH RTTID [facility] -- ( NEW) Last Admin: 07/21/21 05:55 Dose: 2 puff Amlodipine Besylate (Amlodipine Besylate 5 Mg Tablet) 5 mg PO AT BEDTIME [facility] -- ( NEW) Last Admin: 07/21/21 08:58 Dose: 5 mg Aspirin (Aspirin 81 Mg Tab.Chew) 81 mg PO DAILY WM [facility] Last Admin: 07/21/21 08:55 Dose: 81 mg Bisacodyl (Bisacodyl 5 Mg Tablet.Dr) 5 mg PO DAILY PRN -- ( NEW) PRN Reason: Constipation Last Admin: 07/16/21 16:45 Dose: 5 mg Budesonide/Formoterol Fumarate (Budesonide/Formoterol Fumarate 160/4.5 Mcg Inhaler) 2 puff IH BID [facility] -- ( NEW) Last Admin: 07/21/21 08:59 Dose: 2 puff Carvedilol (Carvedilol 6.25 Mg Tablet) 12.5 mg PO BIDWM [facility] -- ( NEW) Last Admin: 07/21/21 08:57 Dose: 12.5 mg Docusate Sodium (Docusate Sodium 100 Mg Capsule) 100 mg PO BID [facility] -- ( NEW) Last Admin: 07/21/21 08:57 Dose: 100 mg Enalapril Maleate (Enalapril Maleate 20 Mg Tablet) 20 mg PO BID [facility] Last Admin: 07/21/21 08:59 Dose: 20 mg Furosemide (Furosemide 20 Mg Tablet) 20 mg PO QDAC [facility] -- (NEW) Last Admin: 07/21/21 05:56 Dose: 20 mg Insulin Human Lispro (Insulin Lispro 100 Unit/Ml (3 Ml) Vial) 0 unit SUBCUT PRN PRN; Protocol -- ( NEW) PRN Reason: Hyperglycemia Last Admin: 07/21/21 12:09 Dose: 4 unit Levothyroxine Sodium (Levothyroxine Sodium 50 Mcg Tablet) 50 mcg PO QDAC [facility] Last Admin: 07/21/21 05:56 Dose: 50 mcg Multivitamins (Multivitamin 1 Tab) 1 tab PO DAILY [facility] Last Admin: 07/21/21 08:58 Dose: 1 tab Nystatin (Nystatin 15 Gm Powder) 1 applic TP TID [facility] TO GROINS AND UNDER BREAST -- ( NEW) Last Admin: 07/21/21 09:02 Dose: 1 applic Phenobarbital (Phenobarbital 32.4 Mg Tablet) 64.8 mg PO BID [facility] Last Admin: 07/21/21 08:58 Dose: 64.8 mg Potassium Chloride (Potassium Chloride 20 Meq Tab) 20 meq PO BIDWM [facility] -- ( NEW) Last Admin: 07/21/21 08:57 Dose: 20 meq Prednisone (Prednisone 10 Mg Tablet) 10 mg PO DAILYWM [facility] X 5 MORE DAYS -- ( NEW) Last Admin: 07/21/21 08:59 Dose: 10 mg Tramadol HCl (Tramadol Hcl 50 Mg Tablet) 50 mg PO BID [facility] -- ( NEW) Last Admin: 07/21/21 08:59 Dose: 50 mg KEFLEX 500 MG PO BID X 5 DAYS -- ( NEW) PRAVASTATIN 40 MG PO DAILY GEMFIBROZIL 600 MG PO BID CALCIUM- VITAMIND3- VITAMIN K 1 TABLET PO DAILY ALLERGIES: Penicillins Adverse Reaction (Verified 07/06/21 11:30) DISCONTINUED MEDICATIONS: NONE NEW PRESCRIPTIONS: 1.)Albuterol Sulfate (Albuterol Sulfate (Ventolin Hfa) 18 Gm 1 Puff With Spacer) 2 puff IH RTTID [facility] 2.)Amlodipine Besylate (Amlodipine Besylate 5 Mg Tablet) 5 mg PO AT BEDTIME [facility] ) 3.)Bisacodyl (Bisacodyl 5 Mg Tablet.Dr) 5 mg PO DAILY PRN 4.)Budesonide/Formoterol Fumarate (Budesonide/Formoterol Fumarate 160/4.5 Mcg Inhaler) 2 puff IH BID [facility] 5.)Carvedilol (Carvedilol 6.25 Mg Tablet) 12.5 mg PO BIDWM [facility] 6.)Docusate Sodium (Docusate Sodium 100 Mg Capsule) 100 mg PO BID [facility] 7.)Furosemide (Furosemide 20 Mg Tablet) 20 mg PO QDAC [facility] 8.)Insulin Human Lispro (Insulin Lispro 100 Unit/Ml (3 Ml) Vial) 0 unit SUBCUT PRN PRN; Protocol 9.)Nystatin (Nystatin 15 Gm Powder) 1 applic TP TID [facility] TO GROINS AND UNDER BREAST 10.)Potassium Chloride (Potassium Chloride 20 Meq Tab) 20 meq PO BIDWM [facility] 11.)Prednisone (Prednisone 10 Mg Tablet) 10 mg PO DAILYWM [facility] X 5 MORE DAYS 12.)Tramadol HCl (Tramadol Hcl 50 Mg Tablet) 50 mg PO BID [facility] 13.)KEFLEX 500 MG PO BID X 5 DAYS SMOKING: N/A DISEASE SPECIFIC EDUCATION: PNEUMONIA ACTIVITY OXYGEN PRECAUTIONS RESIDENTIAL CARE PLACEMENT LAB REVIEW: 07/21/21 04:45 07/21/21 04:45 07/21/21 06:13: Puncture Site Rrad, Base Excess 7.5 H, O2 Saturation 95.3, ABG pH 7.46 H, ABG pCO2 44.0, ABG pO2 73.0 L, ABG HCO3 31.3 H, ABG Total CO2 32.7 H, Joe Test +, Hemoglobin 1.1, Oxyhemoglobin 94.0 L, Carboxyhemoglobin 2.6 H, Total Hemoglobin 9.7 L, O2 Delivery Device Cannula, Oxygen Liter Flow 6.00 07/21/21 04:45: Sodium 137.2, Potassium 4.24, Chloride 103.5, Carbon Dioxide 29.4, Anion Gap 8.54, BUN 23.3 H, Creatinine 0.57 L, Estimated GFR (MDRD) 103.00, BUN/Creatinine Ratio 40.87, Glucose 89.9, Calcium 8.33 L, Total Bilirubin 0.24, AST 41.9 H, ALT 51.7 H, Alkaline Phosphatase 105.3, Total Protein 6.30, Albumin 2.76 L, Globulin 3.54, Albumin/Globulin Ratio 0.77 07/21/21 04:45: WBC 6.75, RBC 3.55 L, Hgb 9.2 L, Hct 30.8 L, MCV 86.8, MCH 25.9 L, MCHC 29.9 L, RDW Coeff of Breanne 16.7 H, Plt Count 303, Immature Gran % (Auto) 0.4, Neut % (Auto) 65.2, Lymph % (Auto) 19.6, [place] % (Auto) 13.2 H, Eos % (Auto) 1.0, Baso % (Auto) 0.6, Neut # (Auto) 4.4, Lymph # (Auto) 1.3, [place] # (Auto) 0.9, Eos # (Auto) 0.1, Baso # (Auto) 0.0, Immature Gran # (Auto) 0.0 DISCHARGE INSTRUCTIONS: [facility] DM FOLLOW UP: HUMALOG SS PER DR. CAICEDO PROTOCOL AC AND HS ACCU-CHECKS. LABS: CBC AND CMP IN A WEEK. THEN CBC , CMP AND A1C EVERY 3 MONTHS, LIPIDS, TSH, T4 , PHENOBARBITAL LEVEL EVERY 6 MONTHS. OXYGEN: 6 L/M PER N/C CONTINUOS. MD FOLLOW UP: DR CAICEDO/CYNTHIA JOY APRN/ WILDER IBANEZ APRN WILL SEE ON ROUNDS. CODE STATUS: DO NOT RESUSCITATE. ACTIVITY: TRANSFERS WITH MECHANICAL LIFT, USES RWX AT TIMES FOR THE FEW STEPS. 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 The patient was treated initially by hospitalist service and when she was about to be discharged to the senior care the patient was according our service was not stable so she was kept in the hospital to continue her antibiotics. She was treated with Rocephin and Doxycycline. The patient's condition fluctuated in a way that she was mentally at clear at times but drowsy. Lately her status seems to have improved. Her appetite has improved. She is up and about walking on her own with some help. The patient's family has agreed to have her discharged. She is going to have a salvage determiner recovery. Cardiovascular status has improved. No symptoms of CHF. Her echo showed normal LV contractility. The blood pressure seems to be under control. Oxygen saturation is staying stable with 5 liters her saturation is 95%. On the day of discharge the patient's arterial blood gasses showed pO2 of 73 with pCO2 of 44 with pH 7.46 with 96% saturation on 6 liters which is well for this patient. Her creatinine was 0.5, BUN 23, potassium was 4.2. Her hgb is 9.2 with hct of 30. She required a unit of packed red cells because she was having some rectal bleeding likely hemorrhoidal with borderline hgb of nearly 8 with hct of 24 and had some evidence of failure to thrive and she was not getting to the point where she was strong enough to even swallow. The patient has no evidence of any active GI bleed anymore. Her hgb and hct has been stable. Problem is urinary retention which was noted on the day of discharge. She was straight cath. The bladder scanned had shown 800cc. The patient is going to be discharged without Ziegler Catheter. Condition at the time of discharge is stable. She was discharged on Keflex and Doxycycline with Norvasc to be given at night. Toradol is 12.5mg twice a day. Phenobarbital will be continued 64.8mg twice a day. The patient has been on this medication for almost 38 years. 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 The patient's Phenobarbital level is pending. The patient will be Tramadol for pain. She is going to be on sliding scale for her blood sugar which could be secondary to steroids that were used. In any case The patient will have followup visit in 5-7 days. The patient at the time of discharge is stable. PROGNOSIS:Guarded. The patient is DNR. TIME SPENT: More than 60 minutes. SHREYA
== END 2021-07-21 15:50 | DRG 177 ==
LOC: ED 11:17 → MEDSURG B 17:27 → MEDSURG A 07-07 15:07
PROVIDERS: ADMIT Emergency Medicine; ATTEND Internal Medicine
DX: R13.12 Dysphagia, oropharyngeal phase; R94.5 Abnormal results of liver function studies; E87.6 Hypokalemia; S16.1XXA Strain of muscle, fascia and tendon at neck level, initial encounter; S22.31XA Fracture of one rib, right side, initial encounter for closed fracture; R52 Pain, unspecified; J44.9 Chronic obstructive pulmonary disease, unspecified; U07.1 COVID-19; M62.81 Muscle weakness (generalized); W19.XXXA Unspecified fall, initial encounter; S32.10XA Unspecified fracture of sacrum, initial encounter for closed fracture; J96.92 Respiratory failure, unspecified with hypercapnia; J12.82 Pneumonia due to coronavirus disease 2019

== ENCOUNTER 2021-07-29 10:19 | Inpatient (IN) ==
--- NOTE | 2021-07-29 10:39 | ED.PDOC ---
General ED Provider: Dr. CRISTIN FELDMAN Chief Complaint: Syncope Stated Complaint: Altered mental status/ poss uti Time Seen by Provider: 07/29/21 10:20 Mode of Arrival: Ambulance Information Source: Patient Exam Limitations: Clinical condition, Dementia and Altered mental status Primary Care Provider: KRYSTAL STRONG Nursing and Triage Documentation Reviewed and Agree: Yes Does patient meet sepsis criteria?: No System Inflammatory Response Syndrome: Not Applicable Sepsis Protocol: For patient's 13 years and over: Temp is 96.8 and below OR 101 and greater Pulse >90 BPM Resp >20/minute Acutely Altered Mental Status Are patient's symptoms suggestive of a new infection, such as: -Pneumonia -Skin, Soft Tissue -Endocarditis -UTI -Bone, Joint Infection -Implantable Device -Acute Abdominal Infection -Wound Infection -Meningitis -Blood Stream Catheter Infection -Unknown Neurological Complaint Exam Altered Mental Status Complaint/Exam Current Mental Status: Confusion Last Known Well: yesterday Onset: Gradual Duration: 1`2 hr Symptoms Are: Still present Timing: Constant Episodes Lasting: Minutes Initial Severity: Moderate Current Severity: Moderate Eye Deviation Present: No Character: Reports Confusion Aggravating: Reports Environmental exposure Alleviating: Reports Medication and Oxygen Associated Signs and Symptoms: Reports Dizziness and Weakness Related History: Reports Similar episode Cardiac Risk Factors: Reports Hypertension CVA Risk Factors: Reports None Related Surgical History: Reports None Carotid Bruit Present: No Nystagmus Present: No Gag Reflex Present: Yes Focal Weakness: Present None Focal Sensory Loss: Present None Gait: Unable Signs of Injury: Present Normal findings Thrombolytics Considered: No Differential Diagnoses: Hypothermia, Hypoxia, Injury, Overdose, Medication reaction, Sepsis and TIA Review of Systems Review Of Systems Constitutional: Reports Weakness Eyes: Reports No symptoms Ears, Nose, Mouth, Throat: Reports No symptoms Cardiac: Reports No symptoms GI: Reports No symptoms : Reports No symptoms Musculoskeletal: Reports No symptoms Skin: Reports No symptoms Neurological: Reports Cognitive dysfunction Endocrine: Reports No symptoms Hematologic/Lymphatic: Reports No symptoms All Other Systems: Reviewed and Negative [facility] Medical History (Updated 07/31/21 @ 12:08 by CRISTIN FELDMAN DO) Anemia Bladder infection COPD (chronic obstructive pulmonary disease) COVID-19 Diabetes mellitus Hypertension Hypokalemia Myocardial infarction Oropharyngeal dysphagia Seizure prophylaxis Skin cancer of nose Social History Smoking and tobacco status: Unknown if ever smoked Surgical History History of brain surgery History of hysterectomy History of knee surgery History of neck surgery Female Reproductive History Menstrual Hx Hysterectomy: No Hx Tubal Ligation: No Physical Exam Physical Exam Appearance: Reports Ill-appearing and Obese Ill-appearing: Moderate Pain Distress: Mild Eyes: Reports MARIO, EOMI, Conjunctiva clear, Right pupil size and Left pupil size ENT: Reports Ears normal, Nose normal and Oropharynx normal Neck: Supple Respiratory: Reports Airway patent, Breath sounds clear and Breath sounds equal Cardiovascular: Reports RRR, Pulses normal, No rub and No murmur GI/: Reports Soft, Nontender, No masses, Bowel sounds normal and No Organomegaly Musculoskeletal: Reports Normal strength, ROM intact and No edema Skin: Reports Warm, Dry and Normal color Neurological: Reports Sensation intact, Motor intact, Cranial nerves intact, Alert, Disoriented, Alert to verbal and Alert to pain Psychiatric: Reports Affect appropriate and Mood appropriate Interpretation Radiology Interpretation Radiology Interpretation By: Radiologist Exam Interpreted: CT Scan Xray Comments: chest-BILAT PNEUMONIA; HEAT;No acute intracranial abnormality. 2. Stable Physician Notification Case Discussed Physician Notified: Dr Alcantara Time of Notification: 14:00 Comments: Discussed case/ Recomment admission /daughter unhappy with shelter Critical Care Note Critical Care Note Total Critical Care Time (mins): 30 Course Course Hematology/Chemistry: 07/31/21 06:10 07/31/21 06:10 Orders, Labs, Meds: Lab Review 07/29/21 07/29/21 07/29/21 11:20 12:00 12:00 WBC 13.06 H D RBC 4.02 L Hgb 10.5 L Hct 34.9 L MCV 86.8 MCH 26.1 L MCHC 30.1 L RDW Coeff of Breanne 17.1 H Plt Count 273 Immature Gran % (Auto) 0.7 Neut % (Auto) 83.5 H Lymph % (Auto) 7.3 L [place] % (Auto) 7.7 Eos % (Auto) 0.5 Baso % (Auto) 0.3 Neut # (Auto) 10.9 H Lymph # (Auto) 1.0 [place] # (Auto) 1.0 Eos # (Auto) 0.1 Baso # (Auto) 0.0 Immature Gran # (Auto) 0.1 Puncture Site Rr Base Excess 0.8 O2 Saturation 85.8 L ABG pH 7.42 ABG pCO2 39.0 ABG pO2 50.0 L* ABG HCO3 25.3 ABG Total CO2 26.5 H Joe Test Pos Hemoglobin 1.0 Oxyhemoglobin 87.0 L Carboxyhemoglobin 2.0 H Total Hemoglobin 11.1 L FiO2 % 21.0 Sodium 136.5 Potassium 4.68 Chloride 105.6 Carbon Dioxide 21.5 L D Anion Gap 14.08 BUN 23.5 H Creatinine 0.47 L Estimated GFR (MDRD) 128.00 BUN/Creatinine Ratio 50.00 Glucose 191.3 H Uric Acid 6.86 H Calcium 9.39 Magnesium 1.84 Total Bilirubin 0.56 AST 21.6 ALT 9.4 Alkaline Phosphatase 104.9 Troponin I 0.018 Total Protein 7.09 Albumin 3.33 L Globulin 3.76 Albumin/Globulin Ratio 0.88 Amylase 61.5 Procalcitonin Urine Color Urine Clarity Urine pH Ur Specific [place] Urine Protein Urine Glucose (UA) Urine Ketones Urine Blood Urine Nitrite Urine Bilirubin Urine Urobilinogen Ur Leukocyte Esterase Urine Microscopic RBC Urine Microscopic WBC Ur Squamous Epith Cells Urine Bacteria Urine Yeast Urine Opiates Screen Ur Oxycodone Screen Urine Methadone Screen Ur Propoxyphene Screen Ur Barbiturates Screen U Tricyclic Antidepress Ur Phencyclidine Scrn Ur Amphetamine Screen U Methamphetamines Scrn U Benzodiazepines Scrn Urine Cocaine Screen U Cannabinoids Screen Adenovirus (PCR) B. pertussis DNA (PCR) B.parapertussis DNA PCR C. pneumoniae DNA (PCR) Coronavirus OC43 (PCR) Coronavirus HKU1 (PCR) Coronavirus 229E (PCR) Coronavirus NL63 (PCR) Human Metapneumovir PCR Influenza Type A (PCR) Influ A Molecular Assay Influenza B (RT-PCR) Influ B Molecular Assay M. pneumoniae (PCR) Parainfluenza 1 (PCR) Parainfluenza 2 (PCR) Parainfluenza 3 (PCR) Parainfluenza 4 (PCR) RSV (PCR) Entero/Rhino (PCR) SARS-CoV-2 (PCR) 07/29/21 07/29/21 07/29/21 12:00 12:28 12:28 WBC RBC Hgb Hct MCV MCH MCHC RDW Coeff of Breanne Plt Count Immature Gran % (Auto) Neut % (Auto) Lymph % (Auto) [place] % (Auto) Eos % (Auto) Baso % (Auto) Neut # (Auto) Lymph # (Auto) [place] # (Auto) Eos # (Auto) Baso # (Auto) Immature Gran # (Auto) Puncture Site Base Excess O2 Saturation ABG pH ABG pCO2 ABG pO2 ABG HCO3 ABG Total CO2 Joe Test Hemoglobin Oxyhemoglobin Carboxyhemoglobin Total Hemoglobin FiO2 % Sodium Potassium Chloride Carbon Dioxide Anion Gap BUN Creatinine Estimated GFR (MDRD) BUN/Creatinine Ratio Glucose Uric Acid Calcium Magnesium Total Bilirubin AST ALT Alkaline Phosphatase Troponin I Total Protein Albumin Globulin Albumin/Globulin Ratio Amylase Procalcitonin < 0.05 Urine Color Yellow Urine Clarity Slightly Urine pH 6.0 Ur Specific [place] 1.025 Urine Protein 1+ H Urine Glucose (UA) Negative Urine Ketones Negative Urine Blood Negative Urine Nitrite Negative Urine Bilirubin Negative Urine Urobilinogen 0.2 Ur Leukocyte Esterase 1+ H Urine Microscopic RBC 2-5 Urine Microscopic WBC 5-10 Ur Squamous Epith Cells 5-10 Urine Bacteria Trace Urine Yeast 3+ Urine Opiates Screen Negative Ur Oxycodone Screen Negative Urine Methadone Screen Negative Ur Propoxyphene Screen Negative Ur Barbiturates Screen Positive H U Tricyclic Antidepress Negative Ur Phencyclidine Scrn Negative Ur Amphetamine Screen Negative U Methamphetamines Scrn Negative U Benzodiazepines Scrn Negative Urine Cocaine Screen Negative U Cannabinoids Screen Negative Adenovirus (PCR) B. pertussis DNA (PCR) B.parapertussis DNA PCR C. pneumoniae DNA (PCR) Coronavirus OC43 (PCR) Coronavirus HKU1 (PCR) Coronavirus 229E (PCR) Coronavirus NL63 (PCR) Human Metapneumovir PCR Influenza Type A (PCR) Influ A Molecular Assay Negative by naat Influenza B (RT-PCR) Influ B Molecular Assay Negative by naat M. pneumoniae (PCR) Parainfluenza 1 (PCR) Parainfluenza 2 (PCR) Parainfluenza 3 (PCR) Parainfluenza 4 (PCR) RSV (PCR) Entero/Rhino (PCR) SARS-CoV-2 (PCR) 07/29/21 14:20 WBC RBC Hgb Hct MCV MCH MCHC RDW Coeff of Breanne Plt Count Immature Gran % (Auto) Neut % (Auto) Lymph % (Auto) [place] % (Auto) Eos % (Auto) Baso % (Auto) Neut # (Auto) Lymph # (Auto) [place] # (Auto) Eos # (Auto) Baso # (Auto) Immature Gran # (Auto) Puncture Site Base Excess O2 Saturation ABG pH ABG pCO2 ABG pO2 ABG HCO3 ABG Total CO2 Joe Test Hemoglobin Oxyhemoglobin Carboxyhemoglobin Total Hemoglobin FiO2 % Sodium Potassium Chloride Carbon Dioxide Anion Gap BUN Creatinine Estimated GFR (MDRD) BUN/Creatinine Ratio Glucose Uric Acid Calcium Magnesium Total Bilirubin AST ALT Alkaline Phosphatase Troponin I Total Protein Albumin Globulin Albumin/Globulin Ratio Amylase Procalcitonin Urine Color Urine Clarity Urine pH Ur Specific [place] Urine Protein Urine Glucose (UA) Urine Ketones Urine Blood Urine Nitrite Urine Bilirubin Urine Urobilinogen Ur Leukocyte Esterase Urine Microscopic RBC Urine Microscopic WBC Ur Squamous Epith Cells Urine Bacteria Urine Yeast Urine Opiates Screen Ur Oxycodone Screen Urine Methadone Screen Ur Propoxyphene Screen Ur Barbiturates Screen U Tricyclic Antidepress Ur Phencyclidine Scrn Ur Amphetamine Screen U Methamphetamines Scrn U Benzodiazepines Scrn Urine Cocaine Screen U Cannabinoids Screen Adenovirus (PCR) Not detected B. pertussis DNA (PCR) Not detected B.parapertussis DNA PCR Not detected C. pneumoniae DNA (PCR) Not detected Coronavirus OC43 (PCR) Not detected Coronavirus HKU1 (PCR) Not detected Coronavirus 229E (PCR) Not detected Coronavirus NL63 (PCR) Not detected Human Metapneumovir PCR Not detected Influenza Type A (PCR) Not detected Influ A Molecular Assay Influenza B (RT-PCR) Not detected Influ B Molecular Assay M. pneumoniae (PCR) Not detected Parainfluenza 1 (PCR) Not detected Parainfluenza 2 (PCR) Not detected Parainfluenza 3 (PCR) Not detected Parainfluenza 4 (PCR) Not detected RSV (PCR) Not detected Entero/Rhino (PCR) Not detected SARS-CoV-2 (PCR) Not detected Orders Category Date Time Status ADMIT PATIENT INPATIENT .TO MEDSUR (MONITORED BED) ADMISSION 07/29/21 14:08 Active ABG DRAW REQUEST Stat CARDIO 07/29/21 10:38 Completed TELEMETRY MONITORING TELE CARE 07/29/21 14:08 Active ED APPLY O2 .ONCE EMERGENCY 07/29/21 14:00 Active IV [ED IV/MEDIPORT/POWERPORT] .ONCE EMERGENCY 07/29/21 10:38 Active ABG COOX Stat LAB 07/29/21 11:20 Completed AMYLASE Stat LAB 07/29/21 12:00 Completed BLOOD CULTURE (ED ONLY) Stat LAB 07/29/21 12:00 Results CBC W/ AUTO DIFF Stat LAB 07/29/21 12:00 Completed CMP [COMPREHENSIVE METABOLIC PANEL] Stat LAB 07/29/21 12:00 Completed FLU A & B MOLECULAR [FLU A/B MOLECULAR] Stat LAB 07/29/21 12:28 Completed MAGNESIUM Stat LAB 07/29/21 12:00 Completed PROCALCITONIN Stat LAB 07/29/21 12:00 Completed RESPIRATORY PANEL 2.1 (PCR) Stat LAB 07/29/21 14:20 Completed SPUTUM CULTURE Stat LAB 07/29/21 10:40 Uncollected TROPONIN I Stat LAB 07/29/21 12:00 Completed UA [URINALYSIS C & S IF INDICATED] Stat LAB 07/29/21 12:28 Completed URIC ACID Stat LAB 07/29/21 12:00 Completed URINE CULTURE Stat LAB 07/29/21 12:28 Completed URINE DRUG SCREEN (RAPID FOR ED) [DRUG SCREEN, URINE, LAB 07/29/21 12:28 Completed RAPID] Stat 0.9 % Sodium Chloride [Saline Flush] MEDS 07/29/21 10:38 Active 1 syr IVF PRN PRN Azithromycin [Zithromax] MEDS 07/29/21 14:09 Discontinued 500 mg PO ONCE STA Ceftriaxone/D5w 1 gm Premix [Rocephin 1 gm/50 ml D5w] MEDS 07/29/21 14:03 Discontinued 1 gm in 50 ml IV ONCE Dexamethasone Sod Phosphate [Decadron] MEDS 07/29/21 14:04 Discontinued 6 mg IVP ONCE ONE CT CHEST W/O CONTRAST Stat RADS 07/29/21 10:[address] HEAD W/O CONTRAST Stat RADS 07/29/21 10:41 Completed Medications Generic Name Dose Route Start Last Admin Trade Name Freq PRN Reason Stop Dose Admin Acetaminophen 650 mg 07/29/21 18:19 Acetaminophen 325 Mg Tablet PO Q4H PRN Headache Albuterol Sulfate 2 puff 07/29/21 20:00 07/31/21 04:30 Albuterol Sulfate (Ventolin Hfa) 18 Gm 1 Puff With Spacer IH 2 puff RTTID SANTA Administration Aspirin 81 mg 07/30/21 08:30 07/31/21 10:00 Aspirin 81 Mg Tab.Chew PO 81 mg DAILYWM SANTA Administration Atropine Sulfate 0.5 mg 07/29/21 18:19 Atropine Sulfate Inj 1 Mg/10 Ml Disp.Syrin IVP ONCE PRN Symptomatic Bradycardia Azithromycin 500 mg 07/30/21 09:00 07/31/21 09:59 Azithromycin 250 Mg Tablet PO 08/01/21 08:59 500 mg DAILY SANTA Administration Bisacodyl 5 mg 07/29/21 19:22 Bisacodyl 5 Mg Tablet.Dr PO DAILY PRN Constipation Budesonide/Formoterol Fumarate 2 puff 07/29/21 21:00 07/31/21 09:45 Budesonide/Formoterol Fumarate 160/4.5 Mcg Inhaler IH 2 puff BID SANTA Administration Carvedilol 12.5 mg 07/29/21 21:00 07/31/21 09:55 Carvedilol 12.5 Mg Tablet PO 12.5 mg BID SANTA Administration Clotrimazole 1 applic 07/30/21 09:00 07/31/21 10:32 Clotrimazole/Betamethasone 45 Gm Cream TP 08/04/21 08:59 1 applic DAILY SANTA Administration Dexamethasone Sodium Phosphate 4 mg 07/30/21 09:00 07/31/21 10:00 Dexamethasone Sod Phos 4 Mg/Ml Inj IM 4 mg DAILY SANTA Administration Docusate Sodium 100 mg 07/29/21 21:00 07/31/21 09:55 Docusate Sodium 100 Mg Capsule PO 100 mg BID SANTA Administration Enalapril Maleate 20 mg 07/29/21 21:00 07/31/21 09:57 Enalapril Maleate 20 Mg Tablet PO 20 mg BID SANTA Administration Fluconazole 150 mg 07/29/21 18:30 07/30/21 20:55 Fluconazole 150 Mg Tablet PO 07/31/21 21:01 150 mg BEDTIME SANTA Administration Furosemide 20 mg 07/30/21 09:00 07/31/21 10:00 Furosemide 20 Mg Tablet PO 20 mg DAILY SNATA Administration CEFTRIAXONE/D5W 1 GM PREMIX 1 gm in 50 mls @ 75 mls/hr 07/30/21 09:00 07/31/21 10:05 Rocephin 1 Gm/50 Ml D5w IV 08/02/21 08:59 75 mls/hr DAILY SANTA Administration Doxycycline Hyclate 100 mg/ 100 mls @ 50 mls/hr 07/31/21 09:00 Sodium Chloride IV 08/03/21 08:59 Q12HR SANTA Insulin Human Lispro 0 unit 07/29/21 21:00 07/31/21 07:45 Insulin Lispro 100 Unit/Ml (3 Ml) Vial SUBCUT Not Given ACHS [facility] Protocol Ketorolac Tromethamine 15 mg 07/29/21 18:28 Ketorolac Tromethamine 15 Mg/Ml Vial IVP 08/02/21 18:28 Q8HR PRN Pain Levothyroxine Sodium 50 mcg 07/30/21 06:30 07/31/21 05:55 Levothyroxine Sodium 50 Mcg Tablet PO 50 mcg DAILY@0630 [facility] Administration Multivitamins 1 tab 07/30/21 09:00 07/31/21 09:58 Multivitamin 1 Tab PO 1 tab DAILY SANTA Administration Nitroglycerin 0.4 mg 07/29/21 18:19 Nitroglycerin 0.4 Mg Tab.Subl SL Q5MIN X 3 DOSES PRN Chest Pain Nystatin 1 applic 07/29/21 21:00 07/31/21 10:30 Nystatin 15 Gm Powder TP 1 applic TID SANTA Administration Phenobarbital 64.8 mg 07/29/21 21:00 07/31/21 09:55 Phenobarbital 32.4 Mg Tablet PO 64.8 mg BID SANTA Administration Potassium Chloride 20 meq 07/29/21 21:00 07/31/21 09:58 Potassium Chloride 20 Meq Tab PO 20 meq BID SANTA Administration Sodium Chloride 1 syr 07/29/21 10:38 07/31/21 10:30 0.9% Sodium Chloride 10 Ml Disp.Syrin IVF 1 syr PRN PRN Administration To flush IV Sodium Chloride 1 syr 07/29/21 21:00 07/31/21 05:57 0.9% Sodium Chloride 10 Ml Disp.Syrin IVF Not Given Q8HR SANTA Tramadol HCl 50 mg 07/29/21 21:00 07/31/21 09:56 Tramadol Hcl 50 Mg Tablet PO 50 mg BID SANTA Administration Discontinued Medications Generic Name Dose Route Start Last Admin Trade Name Freq PRN Reason Stop Dose Admin Azithromycin 500 mg 07/29/21 14:09 07/29/21 15:25 Azithromycin 250 Mg Tablet PO 07/29/21 14:10 500 mg ONCE STA Administration Dexamethasone Sodium Phosphate 6 mg 07/29/21 14:04 07/29/21 15:28 Dexamethasone Sod Phos 10 Mg/Ml Inj IVP 07/29/21 14:05 6 mg ONCE ONE Administration CEFTRIAXONE/D5W 1 GM PREMIX 1 gm in 50 mls @ 75 mls/hr 07/29/21 14:03 07/29/21 15:26 Rocephin 1 Gm/50 Ml D5w IV 07/29/21 14:42 75 mls/hr ONCE STA Administration Dextrose/Sodium Chloride 1,000 mls @ 75 mls/hr 07/29/21 18:30 07/30/21 20:56 Dextrose 5%-1/2ns Iv Solution IV 75 mls/hr .[id number] SANTA Administration Vital Signs: Temp Pulse Resp BP Pulse Ox 07/29/21 10:19 97 F L 70 16 99/41 L 91 L Discharge Plan Discharge Patient Disposition: ADMITTED INPATIENT Discharge Problem: Pneumonia, Altered mental status ED Provider: CRISTIN FELDMAN Physician Progress Note: Daughter conveys to statf desire to avoid her mother going back to NH []
--- NOTE | 2021-07-29 11:16 | CT ---
EXAM: CT head without contrast. HISTORY: Mental status change. COMPARISON: 07/06/2021. TECHNIQUE: Multiple axial images of the brain were obtained from the skull base through the vertex w ithout intravenous contrast. Multiplanar reformats were provided. FINDINGS: There is no intracranial hemorrhage or extraaxial collection. Stable multifocal left fron solomon and parietal encephalomalacia with additional areas in the left basal ganglia. The loredo-white di fferentiation is maintained without evidence for acute large vascular territory infarction. There ar e areas of periventricular and subcortical white matter low attenuation. The cortical sulci and cere bral ventricles are symmetrically enlarged. The basal cisterns are well visualized. There is no hyd rocephalus, mass effect, or midline shift. The paranasal sinuses and mastoid air cells are clear. S table previous left frontal craniotomy. Otherwise, the calvarium is intact. Atherosclerotic calcifi cations present. IMPRESSION: 1. No acute intracranial abnormality. 2. Stable chronic ischemic changes and atrophy. All CT scans are performed using dose optimization techniques as appropriate to the performed exam an d include at least one of the following: Automated exposure control, adjustment of the mA and/or kV according t o size, and the use of iterative reconstruction technique.
--- NOTE | 2021-07-29 11:17 | CT ---
EXAM: CT chest without contrast. HISTORY: Chest congestion. COMPARISON: Radiograph 07/17/2021. TECHNIQUE: Multiple axial images of the chest were obtained without intravenous contrast. Images we re reformatted in the sagittal and coronal planes. FINDINGS: Limited assessment for lymphadenopathy without contrast. Heart mildly enlarged. Atherosclerotic calcifications of the aorta and coronary arteries. No perica rdial effusion. There are multifocal ground-glass opacities and areas of consolidation in both lungs, greatest in the lower lobes. No pleural effusion or pneumothorax. Limited images of the upper abdomen demonstrate no acute finding. Cholelithiasis noted. Probable du odenal diverticulum.. Degenerative changes seen throughout the spine. IMPRESSION: Bilateral pneumonia. All CT scans are performed using dose optimization techniques as appropriate to the performed exam an d include at least one of the following: Automated exposure control, adjustment of the mA and/or kV according t o size, and the use of iterative reconstruction technique.
[2021-07-29 11:29] LABS: ABG PH 7.42 (7.35-7.45); BEecf 0.8 (-2.0-3.0); HCO3 25.3 (21-28); TCO2 26.5 (19-24); sO2 85.8 % (94-98); tHb 11.1 g/dl (11.7-17.4)
[2021-07-29 12:04] LABS: BASOPHILS % (AUTO) 0.3 % (0.0-3.0); EOSINOPHILS # (AUTO) 0.1 K/ul (0.0-0.7); EOSINOPHILS % (AUTO) 0.5 % (0.0-7.0); HEMATOCRIT 34.9 % (37.0-47.0); HEMOGLOBIN 10.5 g/dl (12.0-16.0); IMMATURE GRANULOCYTE # (AUTO) 0.1 (0.0-1.0); IMMATURE GRANULOCYTE % (AUTO) 0.7 % (0.0-5.0); LYMPHOCYTES % (AUTO) 7.3 (10.0-50.0); MEAN CORPUSCULAR HEMOGLOBIN 26.1 pg (27.0-31.0); MEAN CORPUSCULAR HGB CONC 30.1 (31.8-35.4); MEAN CORPUSCULAR VOLUME 86.8 fl (81.0-99.0); MONOCYTES % (AUTO) 7.7 (0-10); NEUTROPHILS # (AUTO) 10.9 K/ul (2.0-6.9); NEUTROPHILS % (AUTO) 83.5 % (42.2-75.2); PLATELET COUNT 273 10^3/uL (140-440); RDW COEFFICIENT OF VARIATION 17.1 % (11.6-14.8); RED BLOOD COUNT 4.02 10^6/ul (4.20-5.40); WHITE BLOOD COUNT 13.06 K/ul (4.6-10.2)
[2021-07-29 12:25] LABS: ALANINE AMINOTRANSFERASE 9.4 U/L (0-35); ALBUMIN 3.33 g/dL (3.5-5.0); ALKALINE PHOSPHATASE 104.9 U/L (53-141); AMYLASE 61.5 U/L (30-110); ASPARTATE AMINO TRANSFERASE 21.6 U/L (14-36); BILIRUBIN,TOTAL 0.56 mg/dL (0.2-1.3); BLOOD UREA NITROGEN 23.5 mg/dL (7-17); CALCIUM 9.39 mg/dL (8.4-10.2); CARBON DIOXIDE 21.5 mmol/L (22-30.0); CHLORIDE 105.6 mmol/L (98-107); CREATININE 0.47 mg/dL (0.60-1.30); GLUCOSE 191.3 mg/dL (74-106); MAGNESIUM 1.84 mg/dL (1.6-2.3); POTASSIUM 4.68 mmol/L (3.5-5.1); SODIUM 136.5 mmol/L (134.5-145); TOTAL PROTEIN 7.09 g/dL (6.3-8.2); URIC ACID 6.86 mg/dL (2.5-6.2)
[2021-07-29 12:35] LABS: TROPONIN I 0.018 ng/ml (0.0000-0.120)
[2021-07-29 12:42] LABS: BILIRUBIN,URINE Negative (NEGATIVE); CLARITY,URINE Slightly (CLEAR); COLOR,URINE Yellow (YELLOW); GLUCOSE, URINE (UA) Negative (NEGATIVE); KETONES,URINE Negative (NEGATIVE); LEUKOCYTE ESTERASE ,URINE 1+ (NEGATIVE); NITRITE,URINE Negative (NEGATIVE); PROTEIN,URINE 1+ (NEGATIVE); URINE, BLOOD Negative (NEGATIVE); UROBILINOGEN,URINE 0.2 (0.2)
[2021-07-29 12:49] LABS: BACTERIA,URINE TRACE (NOT PRESENT); YEAST,URINE 3+ (NOT PRESENT)
[2021-07-29 12:51] LABS: AMPHETAMINE SCREEN,URINE NEGATIVE (NEGATIVE); BARBITURATE SCREEN,URINE POSITIVE (NEGATIVE); BENZODIAZEPINES SCREEN,URINE NEGATIVE (NEGATIVE); CANNABINOID SCREEN,URINE NEGATIVE (NEGATIVE); COCAIN SCREEN,URINE NEGATIVE (NEGATIVE); METHADONE URINE SCREEN NEGATIVE (NEGATIVE); METHAMPHETAMINES SCREEN,URINE NEGATIVE (NEGATIVE); OPIATE SCREEN,URINE NEGATIVE (NEGATIVE); OXYCODONE URINE SCREEN NEGATIVE (NEGATIVE); PHENCYCLIDINE SCREEN,URINE NEGATIVE (NEGATIVE); PROPOXYPHENE URINE SCREEN NEGATIVE (NEGATIVE); TRICYCLIC ANTIDEPRESSANTS URIN NEGATIVE (NEGATIVE)
[2021-07-29 12:58] LABS: MOLECULAR FLU A NEGATIVE BY NAAT (NEGATIVE); MOLECULAR FLU B NEGATIVE BY NAAT (NEGATIVE)
[2021-07-29] MEDS ORDERED: ROCEPHIN 1 GM/50 ML D5W 1 GM/50 ML BAG IV STA (14:03)
[2021-07-29] MEDS ORDERED: DECADRON IVP ONE (14:04)
[2021-07-29] MEDS ORDERED: ZITHROMAX PO STA (14:09)
[2021-07-29 14:26] LABS: BORDETELLA PARAPERTUSSIS (PCR) NOT DETECTED (NOT DETECT); BORDETELLA PERTUSSIS (PCR) NOT DETECTED (NOT DETECT); CHLAMYDIA PNEUMONIAE (PCR) NOT DETECTED (NOT DETECT); CORONAVIRUS 229E (PCR) NOT DETECTED (NOT DETECT); CORONAVIRUS HKU1 (PCR) NOT DETECTED (NOT DETECT); CORONAVIRUS NL63 (PCR) NOT DETECTED (NOT DETECT); CORONAVIRUS OC43 (PCR) NOT DETECTED (NOT DETECT); HUMAN METAPNEUMOVIRUS (PCR) NOT DETECTED (NOT DETECT); HUMAN RHINOVIRUS/ENTEROV (PCR) NOT DETECTED (NOT DETECT); INFLUENZA B (PCR) NOT DETECTED (NOT DETECT); MYCOPLASMA PNEUMONIAE (PCR) NOT DETECTED (NOT DETECT); PARAINFLUENZA VIRUS 1 (PCR) NOT DETECTED (NOT DETECT); PARAINFLUENZA VIRUS 2 (PCR) NOT DETECTED (NOT DETECT); PARAINFLUENZA VIRUS 3 (PCR) NOT DETECTED (NOT DETECT); PARAINFLUENZA VIRUS 4 (PCR) NOT DETECTED (NOT DETECT); RESPIRATORY SYNCYTIAL V (PCR) NOT DETECTED (NOT DETECT); SARS_COV_2 (PCR) NOT DETECTED (NOT DETECT)
[2021-07-29 15:14] LABS: ADENOVIRUS (PCR) NOT DETECTED (NOT DETECT)
[2021-07-29 17:06] VITALS: BMI 29.5
[2021-07-29] MEDS ORDERED: TYLENOL PO PRN (18:19)
[2021-07-29] MEDS ORDERED: NITROSTAT SL PRN (18:19)
[2021-07-29] MEDS ORDERED: ATROPINE SULFATE PFS IVP PRN (18:19)
[2021-07-29] MEDS ORDERED: TORADOL IVP PRN (18:28)
[2021-07-29] MEDS: DEXTROSE 5%-1/2NS IV SOLUTION 1,000 ML IV SCH (18:38)
[2021-07-29 19:14] LABS: TROPONIN I 0.023 ng/ml (0.0000-0.120)
[2021-07-29 19:15] LABS: CREATINE KINASE < 20.0 U/L (30-135)
[2021-07-29] MEDS ORDERED: DULCOLAX PO PRN (19:22)
[2021-07-29] MEDS: VENTOLIN HFA (PER PUFF-WITH SPACER) IH SCH (20:35)
[2021-07-29] MEDS: VASOTEC PO SCH (20:41)
[2021-07-29] MEDS: ULTRAM PO SCH (20:42)
[2021-07-29] MEDS: COLACE PO SCH (20:42)
[2021-07-29] MEDS: NYSTOP POWDER TP SCH (20:42)
[2021-07-29] MEDS: PHENOBARBITAL PO SCH (20:42)
[2021-07-29] MEDS: K-DUR PO SCH (20:42)
[2021-07-29] MEDS: COREG PO SCH (20:42)
[2021-07-29] MEDS: DIFLUCAN PO SCH (20:42)
[2021-07-29] MEDS: HUMALOG SUBCUT SCH (20:43)
[2021-07-29] MEDS: SYMBICORT 160-4.5 MCG INHALER IH SCH (20:43)
[2021-07-29] MEDS ORDERED: PHENOBARBITAL PO SCH (21:00)
[2021-07-30 02:58] LABS: BASOPHILS % (AUTO) 0.3 % (0.0-3.0); HEMATOCRIT 30.5 % (37.0-47.0); HEMOGLOBIN 9.6 g/dl (12.0-16.0); IMMATURE GRANULOCYTE % (AUTO) 0.5 % (0.0-5.0); LYMPHOCYTES # (AUTO) 0.8 K/uL (0.60-3.4); LYMPHOCYTES % (AUTO) 14.2 (10.0-50.0); MEAN CORPUSCULAR HEMOGLOBIN 26.8 pg (27.0-31.0); MEAN CORPUSCULAR HGB CONC 31.5 (31.8-35.4); MEAN CORPUSCULAR VOLUME 85.2 fl (81.0-99.0); MONOCYTES # (AUTO) 0.4 K/uL (0.4-2.0); MONOCYTES % (AUTO) 6.3 (0-10); NEUTROPHILS # (AUTO) 4.6 K/ul (2.0-6.9); NEUTROPHILS % (AUTO) 78.7 % (42.2-75.2); PLATELET COUNT 285 10^3/uL (140-440); RED BLOOD COUNT 3.58 10^6/ul (4.20-5.40); WHITE BLOOD COUNT 5.86 K/ul (4.6-10.2)
[2021-07-30 03:11] LABS: ALANINE AMINOTRANSFERASE 8.7 U/L (0-35); ALBUMIN 3.06 g/dL (3.5-5.0); ALKALINE PHOSPHATASE 96.5 U/L (53-141); ASPARTATE AMINO TRANSFERASE 22.7 U/L (14-36); BILIRUBIN,TOTAL 0.24 mg/dL (0.2-1.3); CALCIUM 9.14 mg/dL (8.4-10.2); CARBON DIOXIDE 24.3 mmol/L (22-30.0); CREATININE 0.53 mg/dL (0.60-1.30); GLUCOSE 199.8 mg/dL (74-106); POTASSIUM 4.9 mmol/L (3.5-5.1); SODIUM 134.2 mmol/L (134.5-145); TOTAL PROTEIN 6.57 g/dL (6.3-8.2)
[2021-07-30 03:23] LABS: CREATINE KINASE < 20.0 U/L (30-135); TROPONIN I 0.021 ng/ml (0.0000-0.120)
[2021-07-30] MEDS: VENTOLIN HFA (PER PUFF-WITH SPACER) IH SCH ×3 (05:00→19:50)
[2021-07-30] MEDS: HUMALOG SUBCUT SCH ×4 (06:07→20:55)
[2021-07-30] MEDS: SYNTHROID PO SCH (06:07)
[2021-07-30] MEDS: DEXTROSE 5%-1/2NS IV SOLUTION 1,000 ML IV SCH ×3 (06:12→20:56)
[2021-07-30] MEDS: LOTRISONE 45 GM TP SCH (08:40)
[2021-07-30] MEDS: ZITHROMAX PO SCH (08:40)
[2021-07-30] MEDS: ASPIRIN CHEWABLE PO SCH (08:41)
[2021-07-30] MEDS: COLACE PO SCH ×2 (08:41→20:55)
[2021-07-30] MEDS: K-DUR PO SCH ×2 (08:41→20:54)
[2021-07-30] MEDS: MULTIVITAMIN TABLET PO SCH (08:41)
[2021-07-30] MEDS: PHENOBARBITAL PO SCH ×2 (08:41→20:55)
[2021-07-30] MEDS: VASOTEC PO SCH ×2 (08:41→20:55)
[2021-07-30] MEDS: COREG PO SCH ×2 (08:41→20:55)
[2021-07-30] MEDS: LASIX TAB PO SCH (08:41)
[2021-07-30] MEDS: DECADRON IM SCH (08:45)
[2021-07-30] MEDS: ULTRAM PO SCH ×2 (08:45→20:54)
[2021-07-30] MEDS: NYSTOP POWDER TP SCH ×3 (08:45→20:55)
[2021-07-30] MEDS: SYMBICORT 160-4.5 MCG INHALER IH SCH ×2 (08:46→20:55)
[2021-07-30] MEDS: ROCEPHIN 1 GM/50 ML D5W 1 GM/50 ML BAG IV SCH (08:46)
[2021-07-30] MEDS: DIFLUCAN PO SCH (20:55)
[2021-07-31] MEDS: VENTOLIN HFA (PER PUFF-WITH SPACER) IH SCH ×3 (04:30→20:00)
[2021-07-31] MEDS: SYNTHROID PO SCH (05:55)
[2021-07-31 06:19] LABS: BASOPHILS % (AUTO) 0.2 % (0.0-3.0); EOSINOPHILS # (AUTO) 0.1 K/ul (0.0-0.7); EOSINOPHILS % (AUTO) 1.3 % (0.0-7.0); HEMATOCRIT 30.1 % (37.0-47.0); HEMOGLOBIN 9.3 g/dl (12.0-16.0); IMMATURE GRANULOCYTE % (AUTO) 0.7 % (0.0-5.0); LYMPHOCYTES # (AUTO) 1.6 K/uL (0.60-3.4); LYMPHOCYTES % (AUTO) 27.9 (10.0-50.0); MEAN CORPUSCULAR HEMOGLOBIN 26.6 pg (27.0-31.0); MEAN CORPUSCULAR HGB CONC 30.9 (31.8-35.4); MONOCYTES # (AUTO) 0.7 K/uL (0.4-2.0); MONOCYTES % (AUTO) 11.6 (0-10); NEUTROPHILS # (AUTO) 3.3 K/ul (2.0-6.9); NEUTROPHILS % (AUTO) 58.3 % (42.2-75.2); PLATELET COUNT 253 10^3/uL (140-440); RDW COEFFICIENT OF VARIATION 17.2 % (11.6-14.8)
[2021-07-31 06:31] LABS: ALANINE AMINOTRANSFERASE 9.2 U/L (0-35); ALBUMIN 2.96 g/dL (3.5-5.0); ASPARTATE AMINO TRANSFERASE 17.7 U/L (14-36); BILIRUBIN,TOTAL 0.21 mg/dL (0.2-1.3); BLOOD UREA NITROGEN 16.3 mg/dL (7-17); CALCIUM 8.24 mg/dL (8.4-10.2); CARBON DIOXIDE 23.6 mmol/L (22-30.0); CHLORIDE 103.7 mmol/L (98-107); CREATININE 0.58 mg/dL (0.60-1.30); GLUCOSE 128.3 mg/dL (74-106); POTASSIUM 4.01 mmol/L (3.5-5.1); SODIUM 135.2 mmol/L (134.5-145); TOTAL PROTEIN 6.35 g/dL (6.3-8.2)
[2021-07-31] MEDS: HUMALOG SUBCUT SCH ×3 (07:45→17:31)
--- NOTE | 2021-07-31 09:01 | PCM.PROG ---
Attending Provider: ATTENDING PROVIDER: Dr. BART CAICEDO This patient is seen with Kayleigh Gupta, Nurse Practitioner. DATE OF SERVICE: 07/31/21 SUBJECTIVE: This 80 year old /WHITE F was hospitalized 07/29/21. The patient got up to walk yesterday. She is eating moderately well. She is oriented to person and place. REVIEW OF SYSTEMS: CONSTITUTIONAL: No night sweats. No fatigue, malaise, lethargy. No fever or chills. Weakness. HEENT: Eyes: No visual changes. No eye pain. No eye discharge. ENT: No runny nose. No epistaxis. No sinus pain. No odynophagia. No congestion. RESPIRATORY: No cough, no congestion. No hemoptysis. No shortness of breath. CARDIOVASCULAR: No angina symptoms. No CHF symptoms. No atypical chest pain for CAD. No palpitations. No orthopnea.. GASTROINTESTINAL: No abdominal pain. No nausea or vomiting. No diarrhea or constipation. No hematemesis. No hematochezia. GENITOURINARY: No urgency. No frequency. No dysuria. No hematuria. No obstructiv e symptoms. No discharge. No pain. No significant abnormal bleeding. MUSCULOSKELETAL: No musculoskeletal pain; no joint swelling. NEUROLOGICAL: Confusion. No headache. No neck pain. No syncope. No seizures. No dizziness. PSYCHIATRIC: Not anxious. No depression. No suicidal thoughts. No homicidal th oughts. SKIN: No rash. No lesions. No wounds. ENDOCRINE: No unexplained weight loss. No weight gain. HEMATOLOGIC/LYMPHATIC: No anemia. No purpura. No petechiae. No prolonged or excessive bleeding. No palpable lymph nodes. PHYSICAL EXAMINATION: GENERAL: The patient is awake, alert and oriented to person, lying in bed in no distress. VITAL SIGNS: Temperature 97.2 F, Pulse 61, Respiratory Rate 18, BP 120/61, Pulse Ox 95% HEENT: Head normocephalic, atraumatic. Eyes: Extraocular muscles are intact. Pupils are equal, round and reactive to light and accommodation. Ears: No lesions. Nose appeared normal. Throat: No exudate or erythema. NECK: Supple. No JVD, no carotid bruit. No lymphadenopathy or thyromegaly. LUNGS: Diminished breath sounds. Clear to auscultation. Percussion note normal. Chest symmetrical. HEART: S1, S2, no S3. No murmurs. No cyanosis or clubbing. No ascites. Pulses: Dorsalis pedis and posterior tibial pulses +1 to +2 both sides. ABDOMEN: Soft. Non-tender. Bowel sounds active. No CVA tenderness. No mass felt. EXTREMITIES: No edema. Full range of motion of all extremities, equal. NEUROLOGIC: No focal deficit. Cranial nerves II through XII are grossly intact. No headache. No double vision. SKIN: Not dry. Intact. Turgor-normal. LYMPHATIC: No palpable lymph nodes/no lymphedema. MUSCULOSKELETAL: Normal joints with no swelling. Muscle tone is normal. LAB REVIEW: 07/31/21 06:10 07/31/21 06:10 07/31/21 06:10: Sodium 135.2, Potassium 4.01, Chloride 103.7, Carbon Dioxide 23.6, Anion Gap 11.91, BUN 16.3, Creatinine 0.58 L, Estimated GFR (MDRD) 101.00, BUN/Creatinine Ratio 28.10, Glucose 128.3 H, Calcium 8.24 L, Total Bilirubin 0 .21, AST 17.7, ALT 9.2, Alkaline Phosphatase 85.0, Total Protein 6.35, Albumin 2.96 L, Globulin 3.39, Albumin/Globulin Ratio 0.87 07/31/21 06:10: WBC 5.60, RBC 3.50 L, Hgb 9.3 L, Hct 30.1 L, MCV 86.0, MCH 26.6 L, MCHC 30.9 L, RDW Coeff of Breanne 17.2 H, Plt Count 253, Immature Gran % (Auto) 0.7, Neut % (Auto) 58.3, Lymph % (Auto) 27.9, [place] % (Auto) 11.6 H, Eos % (Auto) 1.3, Baso % (Auto) 0.2, Neut # (Auto) 3.3, Lymph # (Auto) 1.6, [place] # (Auto) 0.7, Eos # (Auto) 0.1, Baso # (Auto) 0.0, Immature Gran # (Auto) 0.0 07/30/21 03:00: TSH 1.650 07/30/21 03:00: Free T4 1.22 ASSESSMENT: Please see below. 1. Acute bilateral pneumonia 2. History of COVID 19 pneumonia approximately one month ago 3. Dementia 4. Chronic anemia 5. UTI 6. Syncopal episode PLAN: 1. Incentive spirometer TID 2. Doxycycline 100mg IV Q 12 hours 3. Bilateral carotid scan 4. Discontinue IV fluids Plan and coordination of the patient's care discussed in the presence of [employer] and nurse. SCRIBED BY: Jackeline GOTTLIEBist scribed while in presence of service performed by Dr. Caicedo/Kayleigh Gupta APRN on 07/31/21 ([id number])
[2021-07-31] MEDS: SYMBICORT 160-4.5 MCG INHALER IH SCH ×2 (09:45→20:59)
[2021-07-31] MEDS: COLACE PO SCH ×2 (09:55→20:55)
[2021-07-31] MEDS: PHENOBARBITAL PO SCH ×2 (09:55→20:54)
[2021-07-31] MEDS: COREG PO SCH ×2 (09:55→20:54)
[2021-07-31] MEDS: ULTRAM PO SCH ×2 (09:56→20:54)
[2021-07-31] MEDS: VASOTEC PO SCH ×2 (09:57→20:54)
[2021-07-31] MEDS: K-DUR PO SCH ×2 (09:58→20:54)
[2021-07-31] MEDS: MULTIVITAMIN TABLET PO SCH (09:58)
[2021-07-31] MEDS: ZITHROMAX PO SCH (09:59)
[2021-07-31] MEDS: ASPIRIN CHEWABLE PO SCH (10:00)
[2021-07-31] MEDS: DECADRON IM SCH (10:00)
[2021-07-31] MEDS: LASIX TAB PO SCH (10:00)
[2021-07-31] MEDS: ROCEPHIN 1 GM/50 ML D5W 1 GM/50 ML BAG IV SCH (10:05)
[2021-07-31] MEDS: NYSTOP POWDER TP SCH ×3 (10:30→20:57)
[2021-07-31] MEDS: LOTRISONE 45 GM TP SCH (10:32)
[2021-07-31] MEDS: DOXY-100 100 MG in SODIUM CHLORIDE 100ML 100 ML IV SCH ×2 (11:30→20:55)
--- NOTE | 2021-07-31 11:34 | RS.PTINEVL ---
Subjective - Patient information Date of Evaluation: 07/31/21 Date of Arrival on Unit: 07/29/21 Admitted From:: Long-Term ([facility]) Diagnosis: pneumonia, syncopal episode Usual Living Arrangement: Long-Term Living Arrangement Comments: Prior to last hospital stay pt was staying at grandson's home and her dtr stayed with her. Prior to illness lived alone in a small apt. Medical History: Hypertension, COPD, Diabetes, Arthritis Medical History Comments:: COVID, anemia, seizure, [place] Surgical History: Knee Replacement (R tkr), Cervical Spine (x4), Hysterectomy Surgical History Comments:: brain surgery Medications: see chart Subjective Information/ Patient Comments:: pt states that she is "ready to walk". pt is alert and oriented x 3. pt states she [facility] not [facility] Dtr reports that they are planning to take her home to grandson's home because there are no stairs and she will be staying with her. - Level of function Prior to this admission, the patient could do the following:: Partially Dependent Ambulation Abilities prior to this admission: pt was in [facility] prior, however prior to illness pt as independent with amb and self care. Current Level of Function: Partially Dependent Current Equipment Used at Home: rwx, w/c, bsc Interventions - Objective Patient Orientation: Person, Place, Time, Situation Current Interventions: IV's, Oxygen (2 liters), Telemetry, Ziegler Catheter Observation: wound to coccyx. Range of Motion - ROM Right Upper Extremity AROM: WFL's Left Upper Extremity AROM: WFL's Right Lower Extremity AROM: WFL's Left Lower Extremity AROM: WFL's Muscle Strength - Muscle Strength Right Upper Extremity Strength: Mild Weakness (grossly 4/5) Left Upper Extremity Strength: Mild Weakness (grossly 4/5) Right Lower Extremity Strength: Mild Weakness (hip flex 3+/5, knee flex/ext 3+/5, ankle DF/PF 4-/5) Left Lower Extremity Strength: Mild Weakness (hip flex 4-/5 , knee flex/ext 4- /5, ankle DF/PF 4/5) Sensation - Sensation Right Upper Extremity Sensation: Intact/Normal Left Upper Extremity Sensation: Intact/Normal Right Lower Extremity Sensation: Intact/Normal Left Lower Extremity Sensation: Intact/Normal Palpation Palpation Findings: None/Normal Comments:: tender in area of wound on coccyx per nursing Balance - Sitting Balance and Reactions Static Sitting Balance: Fair Dynamic Sitting Balance: Poor Sitting Equilibrium Reactions: Delayed Left, Delayed Right Sitting Protective Reactions: Delayed Left, Delayed Right - Standing Balance and Reactions Static Standing Balance: Poor Dynamic Standing Balance: Poor Standing Equilibrium Reactions: Delayed Left, Delayed Right Standing Protective Reactions: Delayed Left, Delayed Right Functional Mobility - Bed Mobility Rolling R/L: Min Assist, Mod Assist, 1 person assist Supine to Sit: Min Assist, 1 person assist - Transfers Sit to Stand: Min Assist, 2 person assist Stand to Sit: Min Assist, 2 person assist - Safety Awareness Safety Awareness: Fair MARK INDEX SCORE: n/a Ambulation - Ambulation Assistive Device Used: Rolling Walker Orthotic/Prosthetic Device: No Distance: 20ft Assistance needed with Ambulation: Min Assist, 2 person assist Gait Deviations: Forward posture, Short stride Factors Affecting Ambulation: Decreased Balance, Breathing/O2 Saturation, Weakness, Decreased Safety, Limited Endurance Treatment time - Time with patient Length of Evaluation: 19 Total treatment time: 32 Patient Education - Education Patient Education: Activity Modification, Education of Plan of Care Teaching Recipient: Patient, Family Teaching Methods: Discussion Comments: discussion regarding POC as well as dc planning Assessment - Assessment Problem List:: Decreased level of function, Requires training/education, Decreased safety/Risk of falls, Weakness Rehab Potential: Good Further Therapy Indicated?: Yes Candidate for Swing Bed for Therapy Services?: Feel pt may be a candidate for swing bed due to pt is more alert and able to participate with PT. Evaluation Complexity: HISTORY: Medium, EXAM OF BODY SYSTEMS: Medium, CLINICAL PRESENTATION: Medium, CLINICAL DECISION MAKING: Medium Patient's Goal(s): get stronger and go home with my family Short Term Goals GOAL #1: pt demonstrate rolling with bedrails min x 1 Goal to be met by: 08/03/21 GOAL #2: Transfer sup to/from sit CGA Goal to be met by: 08/03/21 GOAL #3: Transfer sit to/from stand min x 1 Goal to be met by: 08/03/21 GOAL #4: pt amb 40ft with rwx with min x 1 to 2. Goal to be met by: 08/03/21 GOAL #5: pt dyn sitting balance fair Goal to be met by: 08/03/21 [facility] Goals GOAL #1: pt demonstrate rolling with bedrails with verbal cues only Goal to be met by: 08/05/21 GOAL #2: Transfer sup to/from sit to/from stand CGA Goal to be met by: 08/05/21 GOAL #3: pt amb 75ft with rwx with CGA x 1 with improved posture and step length Goal to be met by: 08/05/21 Plan Plan of Care: Therapeutic EX, Therapeutic Activity Other:: gait training Frequency of Treatment: 1-2 X day, as tolerated Duration of Treatment: 5 days Anticipated Discharge Destination: Home Treatment Diagnosis (ICD 10 Codes): impaired balance R 26.81. difficulty walking R 26.2. muscle weakness M62.81. falls R 29.6 Has the Physician been added for Co-signature?: Yes
--- NOTE | 2021-07-31 11:39 | RS.OTINEVL ---
Subjective - Patient information Date of Evaluation: 07/31/21 Date of Arrival on Unit: 07/29/21 Admitted From:: Halfway ([facility]) Diagnosis: Pneumonia PRECAUTIONS: Fall risk, severe weakness Usual Living Arrangement: [facility] Living Arrangement Comments: Prior to last hospital stay pt was staying at grandson's home and her dtr stayed with her. Prior to illness lived alone in a small apt. Home Environment: House Medical History: Hypertension, COPD, Diabetes, Arthritis Medical History Comments:: COVID, anemia, seizure, [place], pneumonia LATEX ALLERGY?: No Surgical History: Knee Replacement (R tkr), Cervical Spine (x4), Hysterectomy Surgical History Comments:: brain surgery Medications: see chart - Level of function Prior to this admission, the patient could do the following:: Independent ADL's, Independent Ambulation Pain Assessment - Pain Pain Score: 0 Interventions - Objective Patient Orientation: Person, Situation Current Interventions: IV's, Oxygen, Telemetry Observation: Pt is alert and oriented x 2. Pt is ready to walk where she can go home. Pt transferred min A x 2 from EOB with RW to the door of room and back to chair. Pt has full AROM of LUE. RUE has arthritis but is able to complete shoulder flexion to 125 deg. Interventions - ROM Right Upper Extremity AROM: Slight limitation Left Upper Extremity AROM: WFL's - Strength Right Upper Extremity Strength: Mild Weakness Left Upper Extremity Strength: Mild Weakness - Sensation Right Upper Extremity Sensation: Intact/Normal Left Upper Extremity Sensation: Intact/Normal Balance - Sitting Balance Static Sitting Balance: Fair Dynamic Sitting Balance: Fair - Standing Balance Static Standing Balance: Poor Dynamic Standing Balance: Poor ADL Skills - Self Feeding Self Feeding: Set Up Only - Grooming Grooming: Min Assist - Bathing Bathing UE: Not Tested Bathing LE: Not Tested - Dressing Dressing UE: Min Assist Dressing LE: Min Assist - Toilet Management Toilet Hygiene: CGA Toilet Clothing Management: Mod Assist Functional Mobility - Bed Mobility Rolling R/L: Min Assist Scooting: Min Assist Supine to Sit: Min Assist Sit to Supine: Min Assist - Transfers Sit to Stand: Min Assist, 2 person assist Stand to Sit: Min Assist, 2 person assist Stand Pivot Transfers: Min Assist, 2 person assist - Ambulation Weight Bearing Status: FWB Assistive Device Used: Rolling Walker Assistance needed with Ambulation: Min Assist, 2 person assist - Safety Awareness Safety Awareness: Good MARK INDEX SCORE: . Additional Treatment Performed - Time with patient Length of Evaluation: 19 Total treatment time: 20 Activities Do you enjoy playing games?: Yes Would you be interested in leaving your room for activities?: Yes Would you enjoy group activities?: Yes Do you have difficulty with your vision?: Yes (Has glasses) What types of things do you enjoy doing? Any Hobbies?: visiting, TV Patient Interests:: Watching Television, Visiting/Socializing Patient Education Patient Education: Education of diagnosis, Home Safety, Education of Plan of Care Teaching Recipient: Patient Teaching Methods: Discussion, Demonstration Assessment Problem List:: Decreased level of function, Requires training/education, Decreased safety/Risk of falls, Weakness Rehab Potential: Fair Further Therapy Indicated?: Yes Evaluation Complexity: HISTORY: Medium, EXAM OF BODY SYSTEMS: Medium, CLINICAL DECISION MAKING: Medium Patient's Goal(s): Pt wants to improve where she can go home with her daughter. Short Term Goals - Goals GOAL 1: Pt to increase activity tolerance for ADLS to 8 minutes sitting EOB. Goal to be met by: 08/04/21 GOAL 2: Pt to increase toilet transfers to Min assist x 1 with RW. Goal to be met by: 08/04/21 GOAL 3: Pt to increase to sink level ADLS with Minimal assistance. Goal to be met by: 08/04/21 GOAL 4: Pt to increase RUE AROM to be WFL. Goal to be met by: 08/04/21 [facility] Living Goals GOAL 1: Pt to increase toilet transfers to CGA with RW. Goal to be met by: 08/09/21 GOAL 2: Pt to be CGA with sink level ADLS. Goal to be met by: 08/09/21 GOAL 3: Pt to increase activity tolerance to 15 minutes with rests PRN. Goal to be met by: 08/09/21 Plan Plan of Care: Therapeutic EX, Therapeutic Activity, Self-Care/Home Management Frequency of Treatment: 1-2 X day, as tolerated Duration of Treatment: 2 Weeks Anticipated Discharge Destination: Home Treatment Diagnosis (ICD 10 Codes): Weakness R53.1, Z74.1 Need for assistance with personal care. Has the Physician been added for Co-signature?: Yes
--- NOTE | 2021-07-31 13:37 | US ---
EXAM: Bilateral carotid Doppler HISTORY: Syncope TECHNIQUE: Carotid ultrasound using Duplex imaging with loredo scale, color, and Doppler imaging. FINDINGS: RIGHT: (all velocities in cm/sec, peak systolic/peak diastolic). ICA: 108/4 ICA/CCA ratio:1.9 CCA: 56/0 ECA:181/5 Vertebral: Antegrade, Plaque: Moderate heterogeneous plaque in the common carotid, bulb and proximal ICA. LEFT: (all velocities in cm/sec, peak systolic/peak diastolic). ICA: 231/57 ICA/CCA ratio: 2.5 CCA: 93/20 ECA: 119/0 Vertebral: Antegrade, Plaque: Moderate heterogeneous plaque within the common carotid, bulb and proximal ICA. IMPRESSION: 1. Left ICA and plaque quantity consistent with greater than 70% stenosis but less than near occlusi on (severe). 2. Right ICA velocity and plaque quantity are consistent with less than 50% stenosis.
[2021-07-31] MEDS: DIFLUCAN PO SCH (20:54)
[2021-07-31] MEDS: HUMALOG SUBCUT PRN (20:55)
[2021-08-01] MEDS: VENTOLIN HFA (PER PUFF-WITH SPACER) IH SCH ×3 (04:40→19:25)
[2021-08-01 05:27] LABS: BASOPHILS % (AUTO) 0.3 % (0.0-3.0); EOSINOPHILS % (AUTO) 0.5 % (0.0-7.0); HEMATOCRIT 30.2 % (37.0-47.0); HEMOGLOBIN 9.3 g/dl (12.0-16.0); IMMATURE GRANULOCYTE % (AUTO) 0.5 % (0.0-5.0); LYMPHOCYTES # (AUTO) 1.6 K/uL (0.60-3.4); MEAN CORPUSCULAR HEMOGLOBIN 26.5 pg (27.0-31.0); MEAN CORPUSCULAR HGB CONC 30.8 (31.8-35.4); MONOCYTES # (AUTO) 0.7 K/uL (0.4-2.0); MONOCYTES % (AUTO) 10.4 (0-10); NEUTROPHILS % (AUTO) 63.3 % (42.2-75.2); PLATELET COUNT 280 10^3/uL (140-440); RDW COEFFICIENT OF VARIATION 17.2 % (11.6-14.8); RED BLOOD COUNT 3.51 10^6/ul (4.20-5.40); WHITE BLOOD COUNT 6.24 K/ul (4.6-10.2)
[2021-08-01 05:40] LABS: ALANINE AMINOTRANSFERASE 20.1 U/L (0-35); ALBUMIN 3.05 g/dL (3.5-5.0); ALKALINE PHOSPHATASE 94.7 U/L (53-141); ASPARTATE AMINO TRANSFERASE 33.8 U/L (14-36); BILIRUBIN,TOTAL 0.17 mg/dL (0.2-1.3); BLOOD UREA NITROGEN 13.6 mg/dL (7-17); CALCIUM 8.7 mg/dL (8.4-10.2); CARBON DIOXIDE 25.4 mmol/L (22-30.0); CHLORIDE 105.8 mmol/L (98-107); CREATININE 0.58 mg/dL (0.60-1.30); POTASSIUM 4.5 mmol/L (3.5-5.1); SODIUM 135.8 mmol/L (134.5-145); TOTAL PROTEIN 6.57 g/dL (6.3-8.2)
[2021-08-01] MEDS: SYNTHROID PO SCH (06:05)
[2021-08-01] MEDS: LASIX TAB PO SCH (06:05)
--- NOTE | 2021-08-01 08:39 | PCM.PROG ---
Attending Provider: ATTENDING PROVIDER: Dr. BART CAICEDO This patient is seen with Kayleigh Gupta, Nurse Practitioner. DATE OF SERVICE: 08/01/21 SUBJECTIVE: This 80 year old /WHITE F was hospitalized 07/29/21. The patient is resting comfortably. She got up and did well with therapy yesterday. No fever and more alert. REVIEW OF SYSTEMS: CONSTITUTIONAL: No night sweats. No fatigue, malaise, lethargy. No fever or chills. Weakness. HEENT: Eyes: No visual changes. No eye pain. No eye discharge. ENT: No runny nose. No epistaxis. No sinus pain. No odynophagia. No congestion. RESPIRATORY: No cough, no congestion. No hemoptysis. Shortness of breath. CARDIOVASCULAR: No angina symptoms. No CHF symptoms. No atypical chest pain for CAD. No palpitations. No orthopnea.. GASTROINTESTINAL: No abdominal pain. No nausea or vomiting. No diarrhea or constipation. No hematemesis. No hematochezia. GENITOURINARY: No urgency. No frequency. No dysuria. No hematuria. No obstructiv e symptoms. No discharge. No pain. No significant abnormal bleeding. MUSCULOSKELETAL: No musculoskeletal pain; no joint swelling. NEUROLOGICAL: Awake, alert, oriented to time, place and person. No headache. No neck pain. No syncope. No seizures. No dizziness. PSYCHIATRIC: Not anxious. No depression. No suicidal thoughts. No homicidal thoughts. SKIN: No rash. No lesions. No wounds. ENDOCRINE: No unexplained weight loss. No weight gain. HEMATOLOGIC/LYMPHATIC: No anemia. No purpura. No petechiae. No prolonged or excessive bleeding. No palpable lymph nodes. PHYSICAL EXAMINATION: GENERAL: The patient is awake, alert and oriented, lying in bed in no distress. VITAL SIGNS: Temperature 97.2 F, Pulse 56, Respiratory Rate 18, BP 124/59, Pulse Ox 98% HEENT: Head normocephalic, atraumatic. Eyes: Extraocular muscles are intact. Pupils are equal, round and reactive to light and accommodation. Ears: No lesions. Nose appeared normal. Throat: No exudate or erythema. NECK: Supple. No JVD, no carotid bruit. No lymphadenopathy or thyromegaly. LUNGS: Diminished breath sounds. Clear to auscultation. Percussion note normal. Chest symmetrical. HEART: S1, S2, no S3. No murmurs. No cyanosis or clubbing. No ascites. Pulses: Dorsalis pedis and posterior tibial pulses +1 to +2 both sides. ABDOMEN: Soft. Non-tender. Bowel sounds active. No CVA tenderness. No mass felt. EXTREMITIES: No edema. Full range of motion of all extremities, equal. NEUROLOGIC: No focal deficit. Cranial nerves II through XII are grossly intact. No headache. No double vision. SKIN: Not dry. Intact. Turgor-normal. LYMPHATIC: No palpable lymph nodes/no lymphedema. MUSCULOSKELETAL: Normal joints with no swelling. Muscle tone is normal. LAB REVIEW: 08/01/21 04:35 08/01/21 04:35 08/01/21 04:35: Sodium 135.8, Potassium 4.50, Chloride 105.8, Carbon Dioxide 25.4, Anion Gap 9.10, BUN 13.6, Creatinine 0.58 L, Estimated GFR (MDRD) 101.00, BUN/Creatinine Ratio 23.44, Glucose 95.0, Calcium 8.70, Total Bilirubin 0.17 L, AST 33.8, ALT 20.1, Alkaline Phosphatase 94.7, Total Protein 6.57, Albumin 3.05 L, Globulin 3.52, Albumin/Globulin Ratio 0.86 08/01/21 04:35: WBC 6.24, RBC 3.51 L, Hgb 9.3 L, Hct 30.2 L, MCV 86.0, MCH 26.5 L, MCHC 30.8 L, RDW Coeff of Breanne 17.2 H, Plt Count 280, Immature Gran % (Auto) 0.5, Neut % (Auto) 63.3, Lymph % (Auto) 25.0, [place] % (Auto) 10.4 H, Eos % (Auto) 0.5, Baso % (Auto) 0.3, Neut # (Auto) 4.0, Lymph # (Auto) 1.6, [place] # (Auto) 0.7, Eos # (Auto) 0.0, Baso # (Auto) 0.0, Immature Gran # (Auto) 0.0 ASSESSMENT: Please see below. 1. Bilateral pneumonia 2. Previous COVID 19 3. 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 Chronic anemia 5. Generalized weakness 6. Carotid stenosis left 70-99% PLAN: 1. CTA neck 2. Lipitor 10mg 3. Repeat u/a 4. Discontinue Decadron 5. Prednisone 20mg BID Plan and coordination of the patient's care discussed in the presence of [employer] and nurse. EDUCATION: CONDITION: SCRIBED BY: JANICE MACHADO [employer] scribed while in presence of service performed by Dr. Caicedo/Kayleigh Gupta APRN on 08/01/21 ([id number])
[2021-08-01] MEDS: MULTIVITAMIN TABLET PO SCH (09:29)
[2021-08-01] MEDS: ASPIRIN CHEWABLE PO SCH (09:29)
[2021-08-01] MEDS: PHENOBARBITAL PO SCH ×2 (09:30→21:05)
[2021-08-01] MEDS: ULTRAM PO SCH ×2 (09:30→21:05)
[2021-08-01] MEDS: COREG PO SCH ×2 (09:30→21:07)
[2021-08-01] MEDS: COLACE PO SCH ×2 (09:30→21:06)
[2021-08-01] MEDS: VASOTEC PO SCH ×2 (09:30→21:04)
[2021-08-01] MEDS: K-DUR PO SCH ×2 (09:30→21:06)
[2021-08-01] MEDS: PREDNISONE PO SCH ×2 (09:30→17:23)
[2021-08-01] MEDS: ROCEPHIN 1 GM/50 ML D5W 1 GM/50 ML BAG IV SCH (09:31)
[2021-08-01] MEDS: NYSTOP POWDER TP SCH ×3 (09:32→21:03)
[2021-08-01] MEDS: LOTRISONE 45 GM TP SCH (09:32)
[2021-08-01] MEDS: SYMBICORT 160-4.5 MCG INHALER IH SCH ×2 (09:32→21:04)
[2021-08-01] MEDS: DOXY-100 100 MG in SODIUM CHLORIDE 100ML 100 ML IV SCH ×2 (10:36→20:59)
[2021-08-01] MEDS: HUMALOG SUBCUT PRN ×3 (12:24→21:01)
--- NOTE | 2021-08-01 14:25 | PN ---
DATE OF SERVICE: 07/29/2021 ADMIT NOTE SUBJECTIVE: The patient was brought from the [place] [facility] as the patient's family was not happy and the patient's mental status had changed, it had gotten poor. She was getting more confused. The patient in the emergency room had practically normal workup except that the WBC was high with possibility of pneumonia. The patient was mild dehydrated with high creatinine to BUN ratio. The patient's appetite has been poor. The patient's skin color is what pale but mostly it is poor skin turgor. She was confused but cardiovascular status is stable. She had dehydration with possibility of maybe UTI and or pneumonia. The patient has been having problem with urinating. She was catheterized off and on. The patient is going to be started on Rocephin. Urine samples will be taken for culture sensitivity. CT scan will be done. The patient is also going to be getting 4mg Decadron. She has been having some pain. She will be given 15mg IV Toradol along with PO Ultram. After the patient is hydrated hopefully the patient's mental status improves in the next couple of days after that the family wants the patient to be taken home. CONDITION:Stable. TIME SPENT: More than 30 minutes. Plan and coordination of the patient's care discussed in the presence of nurse. SHREYA
--- NOTE | 2021-08-01 16:35 | CT ---
EXAM: CTA of the neck was performed with and without contrast TECHNIQUE: Helical axial CTA of the neck was performed with and without contrast with multiplanar re constructions and separate work station 3-D renderings. COMPARISON: Carotid duplex from today. HISTORY: Concern for stenosis. Carotid duplex suggests less than 50% stenosis of the right internal c arotid artery and greater than 70% stenosis on the left. FINDINGS: There is no acute soft tissue abnormality. There are no neck masses or pathologic lymph nod es. The thyroid gland is unremarkable. There is some emphysema in the upper lung field and some likel y scarring and atelectasis in the left upper lobe. There are no acute osseous abnormalities. There i s moderate degenerative change in the cervical spine. Intracranial circulation: The visualized intracranial circulation demonstrates fairly advanced calci fic atherosclerosis of the bilateral carotid siphons. Middle cerebral arteries and the anterior cere bral arteries and the vertebral basilar system appear to be widely patent. Aorta: There is non-stenotic calcific atherosclerosis of the aorta with no evidence for dissection o r aneurysm. The bilateral subclavian and brachio-cephalic arteries are widely patent. There is carlos eduardo l branching anatomy of the great vessels. Right carotid artery: The origin of the right common carotid artery off the brachiocephalic and the common carotid artery in the neck are widely patent. There is extremely advanced calcific atheroscle rosis of the right carotid bifurcation. There does appear to be a string of contrast seen in the rig ht internal carotid artery extending to the skull base. Left carotid artery: The origin of the left common carotid artery and the common carotid artery in the neck are widely patent. There is a moderate degree of in-stent restenosis identified measuring u p to approximately 60%. More distally in the neck the internal carotid artery is widely patent with no dissection or additional stenosis. Right vertebral artery: There is a moderate stenosis of the origin of the right vertebral artery. T he course of the right vertebral artery in the neck is normal with no additional stenosis or dissecti on or aneurysm. Left vertebral artery: The origin of the left vertebral artery off of the left subclavian artery is widely patent. The course of the left vertebral artery in the neck is unremarkable with no stenosis or aneurysm or dissection. The right vertebral artery is dominant. IMPRESSION: 1. Advanced calcific atherosclerosis of the right carotid bifurcation. There is an apparent string sign seen involving the right internal carotid artery. This is a discordant compared to today's ultr asound. 2. Left carotid bifurcation stent with a moderate degree of in-stent restenosis measuring up to abou t 60%. 3. Moderate stenosis of the origin of the right vertebral artery. The vertebral arteries are otherw ise widely patent. All CT scans are performed using dose optimization techniques as appropriate to the performed exam an d include at least one of the following: Automated exposure control, adjustment of the mA and/or kV according t o size, and the use of iterative reconstruction technique.
[2021-08-01 17:26] LABS: BILIRUBIN,URINE Negative (NEGATIVE); CLARITY,URINE Slightly (CLEAR); COLOR,URINE Yellow (YELLOW); GLUCOSE, URINE (UA) Negative (NEGATIVE); KETONES,URINE Negative (NEGATIVE); LEUKOCYTE ESTERASE ,URINE 1+ (NEGATIVE); NITRITE,URINE Negative (NEGATIVE); PH,URINE 5.5 (5-9); PROTEIN,URINE Negative (NEGATIVE); URINE, BLOOD Negative (NEGATIVE); UROBILINOGEN,URINE 0.2 (0.2)
[2021-08-01 17:42] LABS: BACTERIA,URINE TRACE (NOT PRESENT); SQUAMOUS EPITHELIAL CELL,UR 0-2 (0-5); YEAST,URINE 3+ (NOT PRESENT)
[2021-08-01] MEDS ORDERED: LIPITOR PO SCH (21:00)
[2021-08-02] MEDS: VENTOLIN HFA (PER PUFF-WITH SPACER) IH SCH ×3 (04:55→20:35)
[2021-08-02 05:15] LABS: BASOPHILS % (AUTO) 0.3 % (0.0-3.0); EOSINOPHILS % (AUTO) 0.2 % (0.0-7.0); HEMATOCRIT 30.7 % (37.0-47.0); HEMOGLOBIN 9.7 g/dl (12.0-16.0); IMMATURE GRANULOCYTE % (AUTO) 0.5 % (0.0-5.0); LYMPHOCYTES # (AUTO) 1.3 K/uL (0.60-3.4); LYMPHOCYTES % (AUTO) 19.3 (10.0-50.0); MEAN CORPUSCULAR HEMOGLOBIN 26.6 pg (27.0-31.0); MEAN CORPUSCULAR HGB CONC 31.6 (31.8-35.4); MEAN CORPUSCULAR VOLUME 84.3 fl (81.0-99.0); MONOCYTES # (AUTO) 0.7 K/uL (0.4-2.0); MONOCYTES % (AUTO) 10.6 (0-10); NEUTROPHILS # (AUTO) 4.5 K/ul (2.0-6.9); NEUTROPHILS % (AUTO) 69.1 % (42.2-75.2); PLATELET COUNT 250 10^3/uL (140-440); RDW COEFFICIENT OF VARIATION 16.9 % (11.6-14.8); RED BLOOD COUNT 3.64 10^6/ul (4.20-5.40); WHITE BLOOD COUNT 6.53 K/ul (4.6-10.2)
[2021-08-02 05:27] LABS: ALANINE AMINOTRANSFERASE 33.7 U/L (0-35); ALBUMIN 3.09 g/dL (3.5-5.0); ALKALINE PHOSPHATASE 101.3 U/L (53-141); ASPARTATE AMINO TRANSFERASE 38.9 U/L (14-36); BILIRUBIN,TOTAL 0.14 mg/dL (0.2-1.3); BLOOD UREA NITROGEN 12.3 mg/dL (7-17); CALCIUM 8.91 mg/dL (8.4-10.2); CARBON DIOXIDE 24.6 mmol/L (22-30.0); CHLORIDE 104.3 mmol/L (98-107); CREATININE 0.55 mg/dL (0.60-1.30); GLUCOSE 126.2 mg/dL (74-106); POTASSIUM 4.35 mmol/L (3.5-5.1); SODIUM 135.2 mmol/L (134.5-145); TOTAL PROTEIN 6.57 g/dL (6.3-8.2)
[2021-08-02] MEDS: LASIX TAB PO SCH (05:57)
[2021-08-02] MEDS: SYNTHROID PO SCH (05:57)
[2021-08-02] MEDS: K-DUR PO SCH ×2 (09:03→20:16)
[2021-08-02] MEDS: ULTRAM PO SCH ×2 (09:03→20:16)
[2021-08-02] MEDS: ASPIRIN CHEWABLE PO SCH (09:03)
[2021-08-02] MEDS: VASOTEC PO SCH ×2 (09:03→20:16)
[2021-08-02] MEDS: PHENOBARBITAL PO SCH ×2 (09:03→20:16)
[2021-08-02] MEDS: MULTIVITAMIN TABLET PO SCH (09:03)
[2021-08-02] MEDS: COREG PO SCH ×2 (09:03→20:16)
[2021-08-02] MEDS: COLACE PO SCH ×2 (09:03→20:16)
[2021-08-02] MEDS: PREDNISONE PO SCH ×2 (09:04→16:00)
[2021-08-02] MEDS: NYSTOP POWDER TP SCH ×3 (09:05→20:17)
[2021-08-02] MEDS: SYMBICORT 160-4.5 MCG INHALER IH SCH ×2 (09:05→20:17)
[2021-08-02] MEDS: LOTRISONE 45 GM TP SCH (09:06)
[2021-08-02] MEDS: DOXY-100 100 MG in SODIUM CHLORIDE 100ML 100 ML IV SCH (09:08)
--- NOTE | 2021-08-02 09:54 | PN ---
DATE OF SERVICE: 07/30/2021 SUBJECTIVE: 80 year old white female hospitalized with possibility of pneumonia. The patient had hypoxemia on admission with some confusion and deterioration of her overall health status with poor appetite. This morning she seems to be oriented to time, place and person looking for her daughter to come. She doesn't want to go to the alf. REVIEW OF SYSTEMS: CONSTITUTIONAL: No night sweats. No fatigue, malaise, lethargy. No fever or chills. HEENT: Eyes: No visual changes. No eye pain. No eye discharge. ENT: No runny nose. No epistaxis. No sinus pain. No sore throat. No odynophagia. No congestion. RESPIRATORY: No cough, no congestion. No hemoptysis. No shortness of breath. CARDIOVASCULAR: No angina symptoms. No CHF symptoms. No atypical chest pain for CAD. No palpitations. No PND. No orthopnea. GASTROINTESTINAL: No abdominal pain. No nausea or vomiting. No diarrhea or constipation. No hematemesis. No hematochezia. GENITOURINARY: No urgency. No frequency. No dysuria. No hematuria. No obstructive symptoms. No discharge. No pain. No significant abnormal bleeding. MUSCULOSKELETAL: No musculoskeletal pain; no joint swelling. NEUROLOGICAL: No headache. No neck pain. No syncope. No seizures. No dizziness. PSYCHIATRIC: Not anxious. No depression. No suicidal thoughts. No homicidal thoughts. SKIN: No rash. No lesions. No wounds. ENDOCRINE: No unexplained weight loss. No weight gain. HEMATOLOGIC/LYMPHATIC: No anemia. No purpura. No petechiae. No prolonged or excessive bleeding. No palpable lymph nodes. PHYSICAL EXAMINATION: VITAL SIGNS: Temperature 97.6, pulse 70, respiratory rate 18, blood pressure 120/60 and pulse ox 95% on 2 liters. HEENT: Head normocephalic, atraumatic. Eyes: Extraocular muscles are intact. Pupils are equal, round and reactive to light and accommodation. Ears: No lesions. Nose appeared normal. Throat: No exudate or erythema. NECK: Supple. No JVD, no carotid bruit. No lymphadenopathy or thyromegaly. LUNGS:Decreased breath sounds but clear to auscultation. Percussion note normal. Chest symmetrical. HEART: S1, S2, no S3. No murmurs. No cyanosis or clubbing. No ascites. Pulses: Dorsalis pedis and posterior tibial pulses +1 to +2 bilaterally. ABDOMEN: Soft. Nontender. Bowel sounds active. No CVA tenderness. No mass felt. EXTREMITIES: No edema. Full range of motion of all extremities, equal. NEUROLOGIC: No focal deficit. Cranial nerves II through XII are grossly intact. No headache. No double vision. SKIN: Not dry. Intact. Turgor - normal. LYMPHATIC: No palpable lymph nodes/no lymphedema. MUSCULOSKELETAL: Normal joints with no swelling. Muscle tone is normal. LABS: Hgb 9.6, hct 30< WBC 5,800 normal differential, creatinine 0.5, BUN 22, potassium 4.9 ASSESSMENT: 1. Pneumonitis 2. Respiratory failure 3. Failure to thrive 4. Anemia 5. Confusion 6. History of COVID pneumonia PLAN: 1. Continue to encourage the patient to eat 2. Continue steroids 3. Continue antibiotics Rocephin 4. The patient's arterial blood gasses done yesterday showed pO2 of 50 with pCo2 of 39, pH 7.42 with 85% saturation on room air. The patient is on 2 liters with oxygen saturation 95% 5. Overall hydration status has improved. Continue IV fluids until she starts eating better 6. She is to be watched with steroids CONDITION: Improving/Stable TIME SPENT: More than 30 minutes. Plan and coordination of the patient's care discussed in the presence of nurse. SHREYA
--- NOTE | 2021-08-02 09:58 | PN ---
DATE OF SERVICE: 07/31/2021 SUBJECTIVE: 80 year old white female hospitalized with pneumonia and COPD likely the patient has COVID fibrosis with hypoxemia. The patient's condition seems to be improving. She is a little stronger in the morning hours. She has energy and she is hungry. She gets really tired at the end of the day. The patient was seen and examined with the Nurse Practitioner. CONDITION: Stable TIME SPENT: More than 30 minutes. Plan and coordination of the patient's care discussed in the presence of nurse. SHREYA
--- NOTE | 2021-08-02 10:00 | PN ---
DATE OF SERVICE: 08/01/2021 SUBJECTIVE: The patient was seen and examined with the Nurse Practitioner. Condition is stable and a lot better. She is going to be very likely put on the swing bed. This morning she is oriented to time, place and person. She is hungry. The daughter was present in the room. TIME SPENT: More than 30 minutes. Plan and coordination of the patient's care discussed in the presence of nurse. SHREYA
[2021-08-02] MEDS: HUMALOG SUBCUT PRN ×3 (11:38→20:22)
[2021-08-02] MEDS ORDERED: TORADOL IM PRN (11:46)
[2021-08-02 12:32] LABS: ABG O2 HGB 95.1 % (95-100); ABG PH 7.46 (7.35-7.45); BEecf 0.4 (-2.0-3.0); COHb 2.7 (0.5-1.5); HCO3 24.2 (21-28); MetHb 0.6 (0-1.5); TCO2 25.2 (19-24); sO2 94.7 % (94-98)
[2021-08-02] MEDS: OMNICEF PO SCH ×2 (13:42→20:16)
[2021-08-02] MEDS: PLAVIX PO SCH (13:42)
--- NOTE | 2021-08-02 14:30 | PN ---
DATE OF SERVICE: 08/02/2021 SUBJECTIVE: 80 year old white female hospitalized pneumonia and respiratory failure. The patient's problem fibrosis which is post COVID causing hypoxemia. The patient's condition had deteriorated with dehydration. Br[facility] her [facility]. She has been hospitalized. Her condition has slowly improved. She is oriented to time, place and person. Today she is feeling a lot better. The patient is going to be in the swing bed for physical therapy because she is deconditioned. 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 Had stent put in nearly 20-[address] Roach. The patient had complication and a blood clot that require craniotomy. Dr. Lau and ended up doing it. At that time Dr. Roach had mentioned that there is no way anything about the right carotid artery. 3-4 years ago the patient had referred to [employer] and they heard phone call from [employer] according to the daughter that they wouldn't do any surgery because she is extremely high risk. I explained in detail about the patient's string sign on the right sided and the complication that could occur with it. The family has decided and the patient herself has declined any further workup or any referral and daughter who is present in the room, Mrs. Muse also has some opinion. At present time the patient is practically asymptomatic. The patient is going to be started on Aspirin and Plavix. REVIEW OF SYSTEMS: CONSTITUTIONAL: No night sweats. No fatigue, malaise, lethargy. No fever or chills. HEENT: Eyes: No visual changes. No eye pain. No eye discharge. ENT: No runny nose. No epistaxis. No sinus pain. No sore throat. No odynophagia. No congestion. RESPIRATORY: No cough, no congestion. No hemoptysis. No shortness of breath. CARDIOVASCULAR: No angina symptoms. No CHF symptoms. No atypical chest pain for CAD. No palpitations. No PND. No orthopnea. GASTROINTESTINAL: No abdominal pain. No nausea or vomiting. No diarrhea or constipation. No hematemesis. No hematochezia. Appetite is improving. GENITOURINARY: No urgency. No frequency. No dysuria. No hematuria. No obstructive symptoms. No discharge. No pain. No significant abnormal bleeding. MUSCULOSKELETAL: No musculoskeletal pain; no joint swelling. Pain in the tailbone. NEUROLOGICAL: No headache. No neck pain. No syncope. No seizures. No dizziness. PSYCHIATRIC: Not anxious. No depression. No suicidal thoughts. No homicidal thoughts. SKIN: No rash. No lesions. No wounds. ENDOCRINE: No unexplained weight loss. No weight gain. HEMATOLOGIC/LYMPHATIC: No anemia. No purpura. No petechiae. No prolonged or excessive bleeding. No palpable lymph nodes. PHYSICAL EXAMINATION: VITAL SIGNS: Temperature 97, pulse 58, respiratory rate 18, blood pressure 152/68 and pulse ox 98% HEENT: Head normocephalic, atraumatic. Eyes: Extraocular muscles are intact. Pupils are equal, round and reactive to light and accommodation. Ears: No lesions. Nose appeared normal. Throat: No exudate or erythema. NECK: Supple. No JVD, no carotid bruit. No lymphadenopathy or thyromegaly. LUNGS:Decreased breath sounds. Good air entry. Clear to auscultation. Percussion note normal. Chest symmetrical. HEART: S1, S2, no S3. No murmurs. No cyanosis or clubbing. No ascites. Pulses: Dorsalis pedis and posterior tibial pulses +1 to +2 bilaterally. ABDOMEN: Soft. Nontender. Bowel sounds active. No CVA tenderness. No mass felt. EXTREMITIES: No edema. Full range of motion of all extremities, equal. NEUROLOGIC: No focal deficit. Cranial nerves II through XII are grossly intact. No headache. No double vision. SKIN: Not dry. Intact. Turgor - normal. LYMPHATIC: No palpable lymph nodes/no lymphedema. MUSCULOSKELETAL: Normal joints with no swelling. Muscle tone is normal. LABS: Hgb 9.7, hct 30, WBC 6,500 normal differential, creatinine 0.5, BUN 12, potassium 4.3 ASSESSMENT: 1. COVID pneumonia/Pulmonary fibrosis seems to be stable 2. Carotid endarterectomy on the left side 20 years ago causing complication and craniotomy with blood clot removal 3. Severe right carotid artery stenosis which is known to the patient and the family. no intervention referrall per patient and the family PLAN: 1. Will add Plavix along with Aspirin 2. Discontinue Rocephin 3. Omnicef 300mg PO daily 4. Discontinue IV Doxycycline 5. Doxycycline 100mg PO daily 6. Start Plavix 75mg PO daily 7. Increase the Lipitor to 20mg 8. Continue Aspirin as before 9. ABG to be done on 2 liters. CONDITION: Stable PROGNOSIS: Guarded Ultimately the patient wants to go home so she has to be on the swing bed to improve her physical status. The patient and the daughter don't want to go back to the penitentiary. The patient was explained that I will be leaving and Dr. Peng will be following until Saturday and she agreed. TIME SPENT: More than 30 minutes, Extensive. Plan and coordination of the patient's care discussed in the presence of nurse. SHREYA
[2021-08-02] MEDS: DOXYCYCLINE HYCLATE PO SCH (20:16)
[2021-08-02] MEDS ORDERED: LIPITOR PO SCH (21:00)
[2021-08-03] MEDS: VENTOLIN HFA (PER PUFF-WITH SPACER) IH SCH ×2 (04:55→14:13)
[2021-08-03 05:20] LABS: BASOPHILS % (AUTO) 0.3 % (0.0-3.0); EOSINOPHILS % (AUTO) 0.3 % (0.0-7.0); HEMATOCRIT 30.1 % (37.0-47.0); HEMOGLOBIN 9.5 g/dl (12.0-16.0); IMMATURE GRANULOCYTE # (AUTO) 0.1 (0.0-1.0); IMMATURE GRANULOCYTE % (AUTO) 0.8 % (0.0-5.0); LYMPHOCYTES # (AUTO) 1.4 K/uL (0.60-3.4); LYMPHOCYTES % (AUTO) 19.9 (10.0-50.0); MEAN CORPUSCULAR HEMOGLOBIN 26.4 pg (27.0-31.0); MEAN CORPUSCULAR HGB CONC 31.6 (31.8-35.4); MEAN CORPUSCULAR VOLUME 83.6 fl (81.0-99.0); MONOCYTES # (AUTO) 0.7 K/uL (0.4-2.0); MONOCYTES % (AUTO) 9.9 (0-10); NEUTROPHILS % (AUTO) 68.8 % (42.2-75.2); PLATELET COUNT 278 10^3/uL (140-440); RDW COEFFICIENT OF VARIATION 16.9 % (11.6-14.8); WHITE BLOOD COUNT 7.24 K/ul (4.6-10.2)
[2021-08-03] MEDS: SYNTHROID PO SCH (05:30)
[2021-08-03] MEDS: LASIX TAB PO SCH (05:31)
[2021-08-03 05:45] LABS: BILIRUBIN,TOTAL 0.3 mg/dL (0.2-1.3); CALCIUM 8.8 mg/dL (8.4-10.2); CREATININE 0.5 mg/dL (0.60-1.30); POTASSIUM 4.5 mmol/L (3.5-5.1); TOTAL PROTEIN 6.3 g/dL (6.3-8.2)
--- NOTE | 2021-08-03 08:51 | PCM.PROG ---
Attending Provider: ATTENDING PROVIDER: Dr. BART CAICEDO This patient is seen with Kayleigh Gupta, Nurse Practitioner. DATE OF SERVICE: 08/03/21 SUBJECTIVE: This 80 year old /WHITE F was hospitalized 07/29/21. Pain has been controlled and breathing is much better. Physical therapy feels she would be a candidate for swing bed. Will be placed in swing bed today. CTA did reveal severe carotid stenosis we will make referral to vascular. REVIEW OF SYSTEMS: CONSTITUTIONAL: No night sweats. No fatigue, malaise, lethargy. No fever or chills. Weakness. HEENT: Eyes: No visual changes. No eye pain. No eye discharge. ENT: No runny nose. No epistaxis. No sinus pain. No odynophagia. No congestion. RESPIRATORY: No cough, no congestion. No hemoptysis. No shortness of breath. CARDIOVASCULAR: No angina symptoms. No CHF symptoms. No atypical chest pain for CAD. No palpitations. No orthopnea.. GASTROINTESTINAL: No abdominal pain. No nausea or vomiting. No diarrhea or constipation. No hematemesis. No hematochezia. GENITOURINARY: No urgency. No frequency. No dysuria. No hematuria. No obstructive symptoms. No discharge. No pain. No significant abnormal bleeding. MUSCULOSKELETAL: No musculoskeletal pain; no joint swelling. NEUROLOGICAL: Awake, alert, oriented to time, place and person. No headache. No neck pain. No syncope. No seizures. No dizziness. PSYCHIATRIC: Not anxious. No depression. No suicidal thoughts. No homicidal thoughts. SKIN: No rash. No lesions. No wounds. ENDOCRINE: No unexplained weight loss. No weight gain. HEMATOLOGIC/LYMPHATIC: No anemia. No purpura. No petechiae. No prolonged or excessive bleeding. No palpable lymph nodes. PHYSICAL EXAMINATION: GENERAL: The patient is awake, alert and oriented, lying in bed in no distress. VITAL SIGNS: Temperature 96.8 F, Pulse 56, Respiratory Rate 18, BP 153/65, Pulse Ox 96% HEENT: Head normocephalic, atraumatic. Eyes: Extraocular muscles are intact. Pupils are equal, round and reactive to light and accommodation. Ears: No lesions. Nose appeared normal. Throat: No exudate or erythema. NECK: Supple. No JVD, no carotid bruit. No lymphadenopathy or thyromegaly. LUNGS: Diminished breath sounds. Clear to auscultation. Percussion note normal. Chest symmetrical. HEART: S1, S2, no S3. No murmurs. No cyanosis or clubbing. No ascites. Pulses: Dorsalis pedis and posterior tibial pulses +1 to +2 both sides. ABDOMEN: Soft. Non-tender. Bowel sounds active. No CVA tenderness. No mass felt. EXTREMITIES: No edema. Full range of motion of all extremities, equal. NEUROLOGIC: No focal deficit. Cranial nerves II through XII are grossly intact. No headache. No double vision. SKIN: Not dry. Intact. Turgor-normal. LYMPHATIC: No palpable lymph nodes/no lymphedema. MUSCULOSKELETAL: Normal joints with no swelling. Muscle tone is normal. LAB REVIEW: 08/03/21 04:33 08/03/21 04:33 08/03/21 04:33: Sodium 133.0 L, Potassium 4.50, Chloride 102.0, Carbon Dioxide 26.0, Anion Gap 9.50, BUN 18.0 H, Creatinine 0.50 L, Estimated GFR (MDRD) 119.00, BUN/Creatinine Ratio 36.00, Glucose 118.0 H, Calcium 8.80, Total Bilirubin 0.30, AST 34.0, ALT 37.0 H, Alkaline Phosphatase 97.0, Total Protein 6.30, Albumin 3.00 L, Globulin 3.30, Albumin/Globulin Ratio 0.90 08/03/21 04:33: WBC 7.24, RBC 3.60 L, Hgb 9.5 L, Hct 30.1 L, MCV 83.6, MCH 26.4 L, MCHC 31.6 L, RDW Coeff of Breanne 16.9 H, Plt Count 278, Immature Gran % (Auto) 0.8, Neut % (Auto) 68.8, Lymph % (Auto) 19.9, [place] % (Auto) 9.9, Eos % (Auto) 0.3, Baso % (Auto) 0.3, Neut # (Auto) 5.0, Lymph # (Auto) 1.4, [place] # (Auto) 0.7, Eos # (Auto) 0.0, Baso # (Auto) 0.0, Immature Gran # (Auto) 0.1 08/02/21 11:55: Puncture Site R rad, Base Excess 0.4, O2 Saturation 94.7, ABG pH 7.46 H, ABG pCO2 34.0 L, ABG pO2 70.0 L, ABG HCO3 24.2, ABG Total CO2 25.2 H, Joe Test Y, Hemoglobin 0.6, Oxyhemoglobin 95.1, Carboxyhemoglobin 2.7 H, Total Hemoglobin 10.0 L, O2 Delivery Device Cannula, Oxygen Liter Flow 2.00 ASSESSMENT: Please see below. 1. Bilateral pneumonia 2. Recent COVID 19 3. Generalized weakness 4. Chronic anemia 5. Severe left carotid stenosis 6. Hypertension 7. Chronic respiratory failure PLAN: 1. Admit to swing bed for PT/OT 2. Continue all medication 3. Nystatin cream QID 4. Discontinue Lotrisone Plan and coordination of the patient's care discussed in the presence of [employer] and nurse. SCRIBED BY: Jackeline GOTTLIEBist scribed while in presence of service performed by Dr. Caicedo/Kayleigh Gupta APRN on 08/03/21 ([id number])
[2021-08-03] MEDS ORDERED: DIFLUCAN PO SCH (09:00)
[2021-08-03] MEDS: COLACE PO SCH (09:45)
[2021-08-03] MEDS: ASPIRIN CHEWABLE PO SCH (09:45)
[2021-08-03] MEDS: ULTRAM PO SCH (09:45)
[2021-08-03] MEDS: MULTIVITAMIN TABLET PO SCH (09:45)
[2021-08-03] MEDS: PREDNISONE PO SCH (09:46)
[2021-08-03] MEDS: NYSTATIN CREAM TP SCH ×2 (09:46→13:22)
[2021-08-03] MEDS: PHENOBARBITAL PO SCH (09:46)
[2021-08-03] MEDS: DOXYCYCLINE HYCLATE PO SCH (09:46)
[2021-08-03] MEDS: PLAVIX PO SCH (09:46)
[2021-08-03] MEDS: COREG PO SCH (09:46)
[2021-08-03] MEDS: VASOTEC PO SCH (09:46)
[2021-08-03] MEDS: OMNICEF PO SCH (09:46)
[2021-08-03] MEDS: SYMBICORT 160-4.5 MCG INHALER IH SCH (09:47)
[2021-08-03] MEDS: NYSTOP POWDER TP SCH (09:48)
[2021-08-03] MEDS: K-DUR PO SCH (09:48)
[2021-08-03] MEDS ORDERED: TORADOL IM PRN ×2 (11:34→11:41)
[2021-08-03 14:05] VITALS: BP 137/60; TEMP 97.9
--- NOTE | 2021-08-03 15:27 | CM.DICTOOL ---
ADMISSION: 07/29/21 16:21 DISCHARGE: AUGUST 03, 2021 DATE OF SERVICE: 08/03/21 FINAL DIAGNOSIS BILATERAL PNEUMONIA RECENT COVID 19 GENERALIZED WEAKNESS LIKELY PULMONARY FIBROSIS DUE TO COVID 19 CHRONIC ANEMIA SEVER LEFT CAROTID STENOSIS HYPERTENSION CHRONIC RESPIRATORY FAILURE PERINEAM/ YEAST INFECTION DEMENTIA UTI SYNCOPAL EPISODE RESPIRATORY FAILURE COVID ( 06/26/2021 DETECTED PER RAPID) COPD H/O ABNORMAL LIVER ENZYMES IN THE HOSPITAL IMPROVING GENERALIZED PAIN OROPHARYNGEAL DYSPHAGIA CONTUSIONS/ MULTIPLE SITES OF HEAD AND NECK CERVICAL MUSCLE STRAIN NON-DISPLACED RT LATERAL 2 ND RIB FRACTURE - PER 07/06/21 CT MODERATE DEGENERATIVE CHANGES RT SHOULDER- PER 07/06/21 CT DEGENERATIVE CHANGES LUMBAR SPINE - PER 07/06/21 CT CLONIC DIVERTICULOSIS - PER 07/06/21 CT CLOSED SACRAL FRACTURE ESSENTIAL HYPERTENSION/LVH HYPERLIPIDEMIA PERIPHERAL VASCULAR DISEASE DIABETES MELLITUS - 2 HYPOTHYROIDISM BRAIN SURGERY AT AGE 45 FROM ENDARTERECTOMY COMPLICATION HYSTERECTOMY LT FRONTAL CRANIOTOMY LAST VITALS Temp Pulse Resp BP Pulse Ox 96.8 F L 56 L 18 153/65 H 96 08/03/21 04:56 08/03/21 04:56 08/03/21 04:56 08/03/21 04:56 08/03/21 10:00 TAKE THESE MEDICATIONS AT HOME Acetaminophen (Acetaminophen 325 Mg Tablet) 650 mg PO Q4H PRN PRN Reason: Headache Albuterol Sulfate (Albuterol Sulfate (Ventolin Hfa) 18 Gm 1 Puff With Spacer) 2 puff IH RTTID [facility] Last Admin: 08/03/21 04:55 Dose: 2 puff Documented by: Aspirin (Aspirin 81 Mg Tab.Chew) 81 mg PO DAILYWM [facility] Last Admin: 08/03/21 09:45 Dose: 81 mg Documented by: Atorvastatin Calcium (Atorvastatin Calcium 20 Mg Tablet) 20 mg PO BEDTIME [facility] Last Admin: 08/02/21 20:16 Dose: 20 mg Documented by: Bisacodyl (Bisacodyl 5 Mg Tablet.Dr) 5 mg PO DAILY PRN PRN Reason: Constipation Budesonide/Formoterol Fumarate (Budesonide/Formoterol Fumarate 160/4.5 Mcg Inhaler) 2 puff IH BID [facility] Last Admin: 08/03/21 09:47 Dose: 2 puff Documented by: Carvedilol (Carvedilol 12.5 Mg Tablet) 12.5 mg PO BID [facility] Last Admin: 08/03/21 09:46 Dose: 12.5 mg Documented by: Cefdinir (Cefdinir 300 Mg Capsule) 300 mg PO BID [facility] Stop: 08/05/21 11:59 Last Admin: 08/03/21 09:46 Dose: 300 mg Documented by: Clopidogrel Bisulfate (Clopidogrel Bisulfate 75 Mg Tablet) 75 mg PO DAILY [facility] Last Admin: 08/03/21 09:46 Dose: 75 mg Documented by: Docusate Sodium (Docusate Sodium 100 Mg Capsule) 100 mg PO BID [facility] Last Admin: 08/03/21 09:45 Dose: 100 mg Documented by: Doxycycline Hyclate (Doxycycline Hyclate 100 Mg Capsule) 100 mg PO Q12HR [facility] Stop: 08/05/21 20:59 Last Admin: 08/03/21 09:46 Dose: 100 mg Documented by: Enalapril Maleate (Enalapril Maleate 20 Mg Tablet) 20 mg PO BID [facility] Last Admin: 08/03/21 09:46 Dose: 20 mg Documented by: Fluconazole (Fluconazole 100 Mg Tablet) 100 mg PO DAILY [facility] Stop: 08/05/21 11:00 Last Admin: 08/03/21 09:46 Dose: 100 mg Documented by: Furosemide (Furosemide 20 Mg Tablet) 20 mg PO QDAC [facility] Last Admin: 08/03/21 05:31 Dose: 20 mg Documented by: Insulin Human Lispro (Insulin Lispro 100 Unit/Ml (3 Ml) Vial) 0 unit SUBCUT PRN PRN; Protocol PRN Reason: Hyperglycemia Last Admin: 08/02/21 20:22 Dose: 4 unit Documented by: Ketorolac Tromethamine (Ketorolac Tromethamine 15 Mg/Ml Vial) 15 mg IM Q8HR PRN PRN Reason: Pain Levothyroxine Sodium (Levothyroxine Sodium 50 Mcg Tablet) 50 mcg PO DAILY@0630 [facility] Last Admin: 08/03/21 05:30 Dose: 50 mcg Documented by: Multivitamins (Multivitamin 1 Tab) 1 tab PO DAILY [facility] Last Admin: 08/03/21 09:45 Dose: 1 tab Documented by: Nystatin (Nystatin 15 Gm Powder) 1 applic TP TID [facility] Last Admin: 08/03/21 09:48 Dose: 1 applic Documented by: Nystatin (Nystatin 15 Gm Cream) 1 applic TP QID [facility] Last Admin: 08/03/21 13:22 Dose: 1 applic Documented by: Phenobarbital (Phenobarbital 32.4 Mg Tablet) 64.8 mg PO BID [facility] Last Admin: 08/03/21 09:46 Dose: 64.8 mg Documented by: Potassium Chloride (Potassium Chloride 20 Meq Tab) 20 meq PO BID [facility] Last Admin: 08/03/21 09:48 Dose: 20 meq Documented by: Prednisone (Prednisone 20 Mg Tablet) 20 mg PO BIDWM [facility] Last Admin: 08/03/21 09:46 Dose: 20 mg Documented by: Tramadol HCl (Tramadol Hcl 50 Mg Tablet) 50 mg PO BID [facility] Last Admin: 08/03/21 09:45 Dose: 50 mg Documented by: ALLERGIES Penicillins Adverse Reaction (Verified 07/06/21 11:30) DISCONTINUED MEDICATIONS KEFLEX PREDNISONE 10 MG NEW PRESCRIPTIONS: ACETAMINOPHEN 650 MG PO EVERY 4 HOURS PRN Atorvastatin Calcium 20 mg PO BEDTIME [facility] OMNICEF 300 mg PO BID [facility] PLAVIX (Clopidogrel) 75 mg PO DAILY [facility] Docusate Sodium 100 mg PO BID [facility] Doxycycline Hyclate 100 mg PO Q12HR [facility] PREDNISONE 20 MG PO BIDWM Nystatin (Nystatin 15 Gm Cream) 1 applic TP TO PERINEUM QID [facility] SMOKING: N/A DISEASE SPECIFIC EDUCATION: CAROTID STENOSIS PNEUMONIA YEAST INFECTION FALL PRECAUTIONS LAB REVIEW: 08/03/21 04:33 08/03/21 04:33 08/03/21 04:33: Sodium 133.0 L, Potassium 4.50, Chloride 102.0, Carbon Dioxide 26.0, Anion Gap 9.50, BUN 18.0 H, Creatinine 0.50 L, Estimated GFR (MDRD) 119.00, BUN/Creatinine Ratio 36.00, Glucose 118.0 H, Calcium 8.80, Total Bilirubin 0.30, AST 34.0, ALT 37.0 H, Alkaline Phosphatase 97.0, Total Protein 6.30, Albumin 3.00 L, Globulin 3.30, Albumin/Globulin Ratio 0.90 08/03/21 04:33: WBC 7.24, RBC 3.60 L, Hgb 9.5 L, Hct 30.1 L, MCV 83.6, MCH 26.4 L, MCHC 31.6 L, RDW Coeff of Breanne 16.9 H, Plt Count 278, Immature Gran % (Auto) 0.8, Neut % (Auto) 68.8, Lymph % (Auto) 19.9, [place] % (Auto) 9.9, Eos % (Auto) 0.3, Baso % (Auto) 0.3, Neut # (Auto) 5.0, Lymph # (Auto) 1.4, [place] # (Auto) 0.7, Eos # (Auto) 0.0, Baso # (Auto) 0.0, Immature Gran # (Auto) 0.1 PLAN: DISCHARGE: TO SWING BED AUGUST 03, 2021 ACTIVITY: UP WITH RWX WITH ASSIST DIRECTED PER PHYSICAL THERAPY PT AND OT TO EVAL AND TREAT DIET: HEART HEALTHY FOLLOW UP: DR. CAICEDO/ CYNTHIA JOY APRN / WILDER IBANEZ APRN WILL SEE ON [facility] WITH DR. SIEGEL ON SATURDAY, AUGUST 09, 2021 @ 1000 PLEASE FAX REPORTS AND H/P AND SEND DISC FOR RECENT SCANS OXYGEN: 2 L/M PER N/C CONTINUOS OXYGEN PRECAUTIONS LABS: CBC AND CMP ON 08/04/2021 SWING BED ORDER SET CODE STATUS: DO NOT RESUSCITATE MRS BARRERA IS ALERT AND ORIENTED X 4. SHE HAS BEEN FORGETFUL WITH CERTAIN ASPECTS. SHE HAS DENIED ANY PAIN AND ONLY MINIMAL SOA. SHE HAS REQUIRED OXYGEN @ 2 L/M PER N/C. LUNGS DIMINISHED .SHE IS UP WITH HEAVY ASSIST OF 2 WITH RWX AND AMBULATING SHORT DISTANCES. SCATTERED FADING BRUISES FROM PREVIOUS FALL AT HOME. SHE HAS A MEPLEX DRESSING TO HER COCCYX/BUTTOCKS DUE TO IRRITATION/STAGE 1. SHE IS EATING BETTER AND DRINKING BETTER. DISCHARGE TO SWING BED DUE TO DECLINE IN FUNCTIONAL MOBILITY RELATED TO S/P COVID PNEUMONIA. SHE WAS NOTED TO HAVE SEVERE OCCLUSION TO HER LT CAROTID. APPOINYMENT WITH VASCULAR SURGERY IN [place] NEXT SATURDAY. MD CYNTHIA POP APRN ALYCE HANNAN, APRN
--- NOTE | 2021-09-21 14:38 | HP ---
DATE OF SERVICE: 07/29/2021 REASON FOR HOSPITALIZATION/HISTORY OF PRESENT ILLNESS: 80 year old white female presents to the emergency room from [facility] with syncopal episode, altered mental status. She has been in the Er two days prior with urinary retention was cathed and drained 700c of urine. At this time her daughter wishes that she not go back to the half-way as she reports that she steadily declining there. PAST MEDICAL HISTORY: Chronic anemia Recent COVID 19 about one month ago Chronic respiratory failure COVID pneumonia end of May beginning of June Chronic anemia Hypertension Recurrent UTI Urinary retention History of Syncopal episode COPD History of elevated liver function Generalized pain History of falls Cervical radiculopathy C spine pain History of right second rib fracture 07/20 Moderate degenerative changes right shoulder L spine changes Diverticulosis Closed sacral fracture LVH Dyslipidemia Peripheral vascular disease Diabetes Mellitus type II Hypothyroidism Carotid stenosis Generalized weakness PAST SURGICAL HISTORY: Brain surgery at age 45 from carotid endarterectomy complication Hysterectomy REVIEW OF SYSTEMS: CONSTITUTIONAL: No night sweats. No fatigue, malaise, lethargy. No fever or chills. Confusion. Weakness. HEENT: Eyes: No visual changes. No eye pain. No eye discharge. ENT: No runny nose. No epistaxis. No sinus pain. No sore throat. No odynophagia. No ear pain. No congestion. RESPIRATORY: No cough, no congestion. No hemoptysis. Shortness of breath. CARDIOVASCULAR: No angina symptoms. No CHF symptoms. No atypical chest pain for CAD. No palpitations. No PND. No orthopnea. GASTROINTESTINAL: No abdominal pain. No nausea or vomiting. No diarrhea or constipation. No hematemesis. No hematochezia. GENITOURINARY: No urgency. No frequency. No dysuria. No hematuria. No obstructive symptoms. No discharge. No pain. No significant abnormal bleeding. MUSCULOSKELETAL: No musculoskeletal pain. No joint swelling. No arthritis. NEUROLOGICAL: No headache. No neck pain. No syncope. No seizures. No dizziness. PSYCHIATRIC: Not anxious. No depression. No suicidal thoughts. No homicidal thoughts. SKIN: No rash. No lesions. No wounds. ENDOCRINE: No unexplained weight loss. No weight gain. HEMATOLOGIC/LYMPHATIC: No anemia. No purpura. No petechiae. No prolonged or excessive bleeding. No palpable lymph nodes. PERSONAL/FAMILY/SOCIAL HISTORY: Non-smoker. No alcohol or illicit drug use. She most recently been placed at [facility] for PT/OT. . MEDICATIONS: Multivitamin 1 capsule PO dily Aspirin 81mg PO daily Unithroid 50mcg PO daily Enalapril 20mg PO BID Tramadol 50mg PO BID Symbicort 2 puffs inhalation BID Carvedilol 12.5mg PO BID Lasix 20mg PO daily Insulin Lispro 1sliding scale dose SUBCUT as directed Nystop 100,000 Topical TID K-Tab 20meq PO BID Albuterol sulfate 2 puff inhalation TID Colace 100mg PO BID Bisacodyl 5mg PO daily PRN Prednisone 10mg PO daily Keflex 500mg PO BID Phenobarbital 64.8mg PO BID ALLERGIES: Penicillin PHYSICAL EXAMINATION: GENERAL: The patient is alert and oriented to person only, not place and time. VITAL SIGNS: Temperature 97, hearty rate 70, respiratory rate 16, blood pressure 99/41 and pulse ox 91%. HEENT: Head normocephalic, atraumatic. Eyes: Extraocular muscles are intact. Pupils are equal, round and reactive to light and accommodation. Ears: No lesions. Nose appeared normal. Throat: No exudate or erythema. NECK: Supple. No JVD, no carotid bruit. No lymphadenopathy or thyromegaly. LUNGS: Diminished breath sounds. Clear to auscultation. Percussion note normal. Chest symmetrical. HEART: S1, S2, no S3. No murmur. No cyanosis or clubbing. No ascites. Pulses: Dorsalis pedis and posterior tibial pulses +1 to +2 bilaterally. ABDOMEN: Soft. Nontender. Bowel sounds active. No CVA tenderness. No mass felt. EXTREMITIES: Trace bilateral leg edema. Full range of motion of all extremities, equal. NEUROLOGIC: No focal deficit. Cranial nerves II through XII are grossly intact. No headache, no double vision or headache. SKIN: Not dry. Intact. Turgor - normal. LYMPHATIC: No palpable lymph nodes/no lymphedema. MUSCULOSKELETAL: Normal joints with no swelling. Muscle tone is normal. LABS: ABG on room air O2 85, pH 7.42, pO2 50, Pco2 39. Glucose 193, Euric acid 6.86, total protein 7.09, Troponin 0.018, Urine shows 3+ yeast, 1+ leukocytes. Influenza A and B are both negative. Respiratory panel is negative. CT of the head is normal. CT of the chest shows bilateral pneumonia. ASSESSMENT: 1. Bilateral pneumonia 2. Acute change in mental status 3. COVID 19 infection 06/26/21. 4. Acute respiratory failure 5. Generalized weakness 6. Dehydration PLAN: 1. We will admit 2. Routine telemetry orders 3. CBC and CMP and INR daily 4. Start Azithromycin 500mg PO daily times three days 5. Rocephin 1 gram IV daily 6. Solu-Cortef 125mg IV Q 8 hours 7. Albuterol NEBs 8. Symbicort NEB 9. A1c 10.Sliding scale for insulin coverage 11.Oxygen 1-2 liters 12.Repeat ABG on 2 liters 13.Sputum culture 14.U/A 15.Start on Diflucan 150mg PO daily Will follow closely. TIME SPENT: More than 70 minutes. MTDD
== END 2021-08-03 15:34 | disposition swing bed (61) | DRG 177 ==
LOC: ED 10:19 → MEDSURG A 16:21
PROVIDERS: ADMIT Internal Medicine; ATTEND Internal Medicine
DX: M62.81 Muscle weakness (generalized); U07.1 COVID-19; Z79.899 Other long term (current) drug therapy; A41.89 Other specified sepsis; J84.10 Pulmonary fibrosis, unspecified; E11.9 Type 2 diabetes mellitus without complications; J12.82 Pneumonia due to coronavirus disease 2019; R41.82 Altered mental status, unspecified; D64.9 Anemia, unspecified; J96.10 Chronic respiratory failure, unspecified whether with hypoxia or hypercapnia; R13.12 Dysphagia, oropharyngeal phase; I10 Essential (primary) hypertension; I65.22 Occlusion and stenosis of left carotid artery; N39.0 Urinary tract infection, site not specified; F03.90 Unspecified dementia, unspecified severity, without behavioral disturbance, psychotic disturbance, mood disturbance, and anxiety; R55 Syncope and collapse; E66.9 Obesity, unspecified

== ENCOUNTER 2021-11-09 11:11 | Inpatient (IN) ==
[~2021-11-09 11:11] MED LIST: SODIUM CHLORIDE 500 ML IV SCH
[2021-11-09] MEDS ORDERED: ATROPINE SULFATE PFS IVP PRN (12:48)
[2021-11-09] MEDS ORDERED: NITROSTAT SL PRN (12:48)
[2021-11-09 12:50] VITALS: BMI 20.9
[2021-11-09] MEDS ORDERED: DECADRON IM ONE (13:00)
[2021-11-09] MEDS ORDERED: SODIUM CHLORIDE 1,000 ML IV SCH ×2 (13:00)
[2021-11-09 13:13] LABS: ABG O2 HGB 94.2 % (95-100); ABG PH 7.48 (7.35-7.45); BEecf 0.3 (-2.0-3.0); COHb 3.3 (0.5-1.5); HCO3 23.8 (21-28); TCO2 24.8 (19-24); sO2 96.8 % (94-98); tHb 10.7 g/dl (11.7-17.4)
[2021-11-09 13:26] LABS: ALBUMIN 3.01 g/dL (3.5-5.0); ALKALINE PHOSPHATASE 109.4 U/L (53-141); ASPARTATE AMINO TRANSFERASE 32.1 U/L (14-36); BASOPHILS % (AUTO) 0.3 % (0.0-3.0); BILIRUBIN,TOTAL 0.5 mg/dL (0.2-1.3); BLOOD UREA NITROGEN 19.1 mg/dL (7-17); CALCIUM 9.02 mg/dL (8.4-10.2); CARBON DIOXIDE 23.7 mmol/L (22-30.0); CHLORIDE 100.3 mmol/L (98-107); CREATININE 0.73 mg/dL (0.60-1.30); EOSINOPHILS % (AUTO) 0.2 % (0.0-7.0); GLUCOSE 110.4 mg/dL (74-106); HEMATOCRIT 30.8 % (37.0-47.0); HEMOGLOBIN 10.3 g/dl (12.0-16.0); IMMATURE GRANULOCYTE % (AUTO) 0.5 % (0.0-5.0); LYMPHOCYTES # (AUTO) 1.3 K/uL (0.60-3.4); LYMPHOCYTES % (AUTO) 21.5 (10.0-50.0); MEAN CORPUSCULAR HEMOGLOBIN 30.5 pg (27.0-31.0); MEAN CORPUSCULAR HGB CONC 33.4 (31.8-35.4); MEAN CORPUSCULAR VOLUME 91.1 fl (81.0-99.0); MONOCYTES # (AUTO) 0.7 K/uL (0.4-2.0); MONOCYTES % (AUTO) 11.8 (0-10); NEUTROPHILS # (AUTO) 4.1 K/ul (2.0-6.9); NEUTROPHILS % (AUTO) 65.7 % (42.2-75.2); PLATELET COUNT 362 10^3/uL (140-440); POTASSIUM 3.47 mmol/L (3.5-5.1); RDW COEFFICIENT OF VARIATION 13.8 % (11.6-14.8); RED BLOOD COUNT 3.38 10^6/ul (4.20-5.40); TOTAL PROTEIN 6.6 g/dL (6.3-8.2); WHITE BLOOD COUNT 6.19 K/ul (4.6-10.2)
[2021-11-09] MEDS ORDERED: TYLENOL PO PRN (14:03)
--- NOTE | 2021-11-09 14:11 | DI ---
EXAM: CHEST FRONTAL VIEW HISTORY: Shortness of breath COMPARISON: 07/17/2021 FINDINGS: Prominent heart size. Mild infiltrate in the left lung base versus atelectasis. Lungs ar e otherwise clear. No vascular congestion or visible pleural fluid. No pneumothorax. IMPRESSION: Prominent heart size. Mild infiltrate in the left lung base versus atelectasis. Lungs are otherwise clear.
[2021-11-09 14:47] LABS: BILIRUBIN,URINE Negative (NEGATIVE); CLARITY,URINE Clear (CLEAR); COLOR,URINE Yellow (YELLOW); GLUCOSE, URINE (UA) Negative (NEGATIVE); KETONES,URINE 1+ (NEGATIVE); LEUKOCYTE ESTERASE ,URINE 1+ (NEGATIVE); NITRITE,URINE Negative (NEGATIVE); PROTEIN,URINE Negative (NEGATIVE); URINE, BLOOD Negative (NEGATIVE); UROBILINOGEN,URINE 0.2 (0.2)
[2021-11-09 14:52] LABS: SQUAMOUS EPITHELIAL CELL,UR 0-2 (0-5)
[2021-11-09 14:53] LABS: URINE WBC, MICROSCOPIC 30-50 (0-2)
[2021-11-09] MEDS: NYSTOP POWDER TP SCH ×2 (15:32→20:11)
[2021-11-09] MEDS: COREG PO SCH (17:08)
[2021-11-09] MEDS: PROTONIX PO SCH (17:08)
[2021-11-09] MEDS: K-DUR PO SCH (17:08)
[2021-11-09] MEDS: SYMBICORT 160-4.5 MCG INHALER IH SCH (20:11)
[2021-11-09] MEDS: PHENOBARBITAL PO SCH (20:11)
[2021-11-09] MEDS: VASOTEC PO SCH (20:11)
[2021-11-09] MEDS: COLACE PO SCH (21:56)
[2021-11-09] MEDS: LIPITOR PO SCH (21:56)
[2021-11-09] MEDS: ULTRAM PO SCH (21:57)
[2021-11-09] MEDS: SODIUM CHLORIDE 1,000 ML IV SCH (23:37)
[2021-11-10] MEDS: FERROUS SULFATE PO SCH (05:33)
[2021-11-10] MEDS: PROTONIX PO SCH ×2 (05:33→16:50)
[2021-11-10 06:39] LABS: BASOPHILS % (AUTO) 0.2 % (0.0-3.0); EOSINOPHILS % (AUTO) 0.4 % (0.0-7.0); HEMATOCRIT 30.9 % (37.0-47.0); HEMOGLOBIN 9.9 g/dl (12.0-16.0); IMMATURE GRANULOCYTE % (AUTO) 0.4 % (0.0-5.0); LYMPHOCYTES # (AUTO) 1.2 K/uL (0.60-3.4); LYMPHOCYTES % (AUTO) 22.2 (10.0-50.0); MEAN CORPUSCULAR HEMOGLOBIN 29.8 pg (27.0-31.0); MEAN CORPUSCULAR VOLUME 93.1 fl (81.0-99.0); MONOCYTES # (AUTO) 0.7 K/uL (0.4-2.0); MONOCYTES % (AUTO) 14.2 (0-10); NEUTROPHILS # (AUTO) 3.3 K/ul (2.0-6.9); NEUTROPHILS % (AUTO) 62.6 % (42.2-75.2); PLATELET COUNT 307 10^3/uL (140-440); RDW COEFFICIENT OF VARIATION 13.5 % (11.6-14.8); RED BLOOD COUNT 3.32 10^6/ul (4.20-5.40); WHITE BLOOD COUNT 5.22 K/ul (4.6-10.2)
[2021-11-10 06:55] LABS: ALANINE AMINOTRANSFERASE 9.9 U/L (0-35); ALBUMIN 2.63 g/dL (3.5-5.0); ALKALINE PHOSPHATASE 92.9 U/L (53-141); ASPARTATE AMINO TRANSFERASE 23.5 U/L (14-36); BILIRUBIN,TOTAL 0.43 mg/dL (0.2-1.3); BLOOD UREA NITROGEN 15.4 mg/dL (7-17); CALCIUM 8.55 mg/dL (8.4-10.2); CARBON DIOXIDE 23.3 mmol/L (22-30.0); CHLORIDE 105.1 mmol/L (98-107); CREATININE 0.66 mg/dL (0.60-1.30); GLUCOSE 81.1 mg/dL (74-106); POTASSIUM 3.34 mmol/L (3.5-5.1); SODIUM 134.1 mmol/L (134.5-145); TOTAL PROTEIN 5.91 g/dL (6.3-8.2)
[2021-11-10] MEDS ORDERED: FERROUS SULFATE PO SCH (09:00)
--- NOTE | 2021-11-10 09:08 | PCM.PROG ---
Attending Provider: ATTENDING PROVIDER: Dr. BART CAICEDO DATE OF SERVICE: 11/10/21 SUBJECTIVE: This 81 year old /WHITE F was hospitalized 11/09/21 with dehydration, acute gastritis and hypotension. The patient less nausea, not eating much awake and talking. She wants to attempt to walk. REVIEW OF SYSTEMS: CONSTITUTIONAL: No night sweats. No fatigue, malaise, lethargy. No fever or chills. HEENT: Eyes: No visual changes. No eye pain. No eye discharge. ENT: No runny nos e. No epistaxis. No sinus pain. No odynophagia. No congestion. RESPIRATORY: No cough, no congestion. No hemoptysis. No shortness of breath. CARDIOVASCULAR: No angina symptoms. No CHF symptoms. No atypical chest pain for CAD. No palpitations. No orthopnea.. GASTROINTESTINAL: No abdominal pain. No nausea or vomiting. No diarrhea or constipation. No hematemesis. No hematochezia. GENITOURINARY: No urgency. No frequency. No dysuria. No hematuria. No obstructive symptoms. No discharge. No pain. No significant abnormal bleeding. MUSCULOSKELETAL: No musculoskeletal pain; no joint swelling. NEUROLOGICAL: Awake, alert, oriented to time, place and person. No headache. No neck pain. No syncope. No seizures. No dizziness. PSYCHIATRIC: Not anxious. No depression. No suicidal thoughts. No homicidal tho ughts. SKIN: No rash. No lesions. No wounds. ENDOCRINE: No unexplained weight loss. No weight gain. HEMATOLOGIC/LYMPHATIC: No anemia. No purpura. No petechiae. No prolonged or excessive bleeding. No palpable lymph nodes. PHYSICAL EXAMINATION: GENERAL: The patient is awake, alert and oriented, lying in bed in no distress. VITAL SIGNS: Temperature 98 F, Pulse 70, Respiratory Rate 18, BP 139/65, Pulse Ox 95% HEENT: Head normocephalic, atraumatic. Eyes: Extraocular muscles are intact. Pupils are equal, round and reactive to light and accommodation. Ears: No lesi ons. Nose appeared normal. Throat: No exudate or erythema. NECK: Supple. No JVD, no carotid bruit. No lymphadenopathy or thyromegaly. LUNGS: Clear to auscultation. Percussion note normal. Chest symmetrical. HEART: S1, S2, no S3. No murmurs. No cyanosis or clubbing. No ascites. Pulses: Dorsalis pedis and posterior tibial pulses +1 to +2 both sides. ABDOMEN: Soft. Non-tender. Bowel sounds active. No CVA tenderness. No mass felt. EXTREMITIES: No edema. Full range of motion of all extremities, equal. NEUROLOGIC: No focal deficit. Cranial nerves II through XII are grossly intact. No headache, no double vision or headache. SKIN: Warm and dry. Intact. Turgor-better LYMPHATIC: No palpable lymph nodes/no lymphedema. MUSCULOSKELETAL: Normal joints with no swelling. Muscle tone is normal. LAB REVIEW: 11/10/21 06:30 11/10/21 06:30 11/10/21 06:30: Sodium 134.1 L, Potassium 3.34 L, Chloride 105.1, Carbon Dioxide 23.3, Anion Gap 9.04, BUN 15.4, Creatinine 0.66, Estimated GFR (MDRD) 86.00, BUN/Creatinine Ratio 23.33, Glucose 81.1, Calcium 8.55, Total Bilirubin 0.43, AST 23.5, ALT 9.9, Alkaline Phosphatase 92.9, Total Protein 5.91 L, Albumin 2.63 L, Globulin 3.28, Albumin/Globulin Ratio 0.80 11/10/21 06:30: WBC 5.22, RBC 3.32 L, Hgb 9.9 L, Hct 30.9 L, MCV 93.1, MCH 29.8, MCHC 32.0, RDW Coeff of Breanne 13.5, Plt Count 307, Immature Gran % (Auto) 0.4, Neut % (Auto) 62.6, Lymph % (Auto) 22.2, [place] % (Auto) 14.2 H, Eos % (Auto) 0.4, Baso % (Auto) 0.2, Neut # (Auto) 3.3, Lymph # (Auto) 1.2, [place] # (Auto) 0.7, Eos # (Auto) 0.0, Baso # (Auto) 0.0, Immature Gran # (Auto) 0.0 11/09/21 14:32: Urine Color Yellow, Urine Clarity Clear, Urine pH 6.0, Ur Specific [place] 1.015, Urine Protein Negative, Urine Glucose (UA) Negative, Uri ne Ketones 1+ H, Urine Blood Negative, Urine Nitrite Negative, Urine Bilirubin Negative, Urine Urobilinogen 0.2, Ur Leukocyte Esterase 1+ H, Urine Microscopic WBC 30-50, Ur Squamous Epith Cells 0-2 11/09/21 13:08: Free T4 1.62 11/09/21 13:08: TSH 3.900 11/09/21 13:08: Sodium 132.0 L, Potassium 3.47 L, Chloride 100.3, Carbon Dioxide 23.7, Anion Gap 11.47, BUN 19.1 H, Creatinine 0.73, Estimated GFR (MDRD) 77.00, BUN/Creatinine Ratio 26.16, Glucose 110.4 H, Calcium 9.02, Total Bilirubin 0.50, AST 32.1, ALT 12.0, Alkaline Phosphatase 109.4, Total Protein 6.60, Albumin 3.01 L, Globulin 3.59, Albumin/Globulin Ratio 0.83 11/09/21 13:08: WBC 6.19, RBC 3.38 L, Hgb 10.3 L, Hct 30.8 L, MCV 91.1, MCH 30.5, MCHC 33.4, RDW Coeff of Breanne 13.8, Plt Count 362, Immature Gran % (Auto) 0.5, Neut % (Auto) 65.7, Lymph % (Auto) 21.5, [place] % (Auto) 11.8 H, Eos % (Auto) 0.2, Baso % (Auto) 0.3, Neut # (Auto) 4.1, Lymph # (Auto) 1.3, [place] # (Auto) 0.7, Eos # (Auto) 0.0, Baso # (Auto) 0.0, Immature Gran # (Auto) 0.0 11/09/21 12:58: Puncture Site Rr, Base Excess 0.3, O2 Saturation 96.8, ABG pH 7.48 H, ABG pCO2 32.0 L, ABG pO2 82.0 L, ABG HCO3 23.8, ABG Total CO2 24.8 H, Joe Test Pos, Hemoglobin 1.0, Oxyhemoglobin 94.2 L, Carboxyhemoglobin 3.3 H, Total Hemoglobin 10.7 L, FiO2 % 21.0 11/09/21 11:20: SARS CoV-2 RNA Rapid [place] Negative ASSESSMENT: Please see below. 1. Dehydration, clinically resolved 2. Dementia, stable mental status has improved 3. Hypotension, resolved. PLAN: 1. Continue to encouarge the patient to eat 2. Will try to help her sit at bedside and attempt to walk 3. The patient is hypotensive we will give her K-tab 20meq twice a day Plan and coordination of the patient's care discussed in the presence of Curtain Inspector and nurse. SCRIBED BY: JANICE MACHADO Ear Nose And Throat Specialist scribed while in presence of service performed by Dr. BART CAICEDO on 11/10/21 ([id number])
[2021-11-10] MEDS: ZOFRAN 4 MG/2 ML IVP PRN (09:10)
[2021-11-10] MEDS: COLACE PO SCH ×2 (09:14→20:09)
[2021-11-10] MEDS: PHENOBARBITAL PO SCH ×2 (09:15→20:09)
[2021-11-10] MEDS: MULTIVITAMIN TABLET PO SCH (09:15)
[2021-11-10] MEDS: ULTRAM PO SCH ×2 (09:15→20:09)
[2021-11-10] MEDS: VASOTEC PO SCH ×2 (09:15→20:09)
[2021-11-10] MEDS: K-DUR PO SCH ×4 (09:15→20:09)
[2021-11-10] MEDS: LEXAPRO PO SCH (09:15)
[2021-11-10] MEDS: VITAMIN D PO SCH (09:15)
[2021-11-10] MEDS: COREG PO SCH ×2 (09:15→16:50)
[2021-11-10] MEDS: GLUCOPHAGE PO SCH (09:15)
[2021-11-10] MEDS: PLAVIX PO SCH (09:16)
[2021-11-10] MEDS: SYMBICORT 160-4.5 MCG INHALER IH SCH ×2 (09:16→20:08)
[2021-11-10] MEDS: NYSTOP POWDER TP SCH ×3 (09:16→20:08)
[2021-11-10] MEDS: SODIUM CHLORIDE 1,000 ML IV SCH (13:24)
--- NOTE | 2021-11-10 13:30 | HP ---
DATE OF SERVICE: 11/09/21 REASON FOR HOSPITALIZATION/HISTORY OF PRESENT ILLNESS: Feels like might pass out, not eating. Unable to hold up. Not feeling well. Weakness, poor appetite and vomiting. PAST MEDICAL HISTORY: Hypertension Dementia COPD Ataxia Diabetes Mellitus type II Hyperlipidemia Chronic stenosis Seizure REVIEW OF SYSTEMS: CONSTITUTIONAL: No fever, Fatigue. HEENT: No sinus drainage, no sore throat. RESPIRATORY: No cough, no congestion. CARDIOVASCULAR: No atypical chest pain for coronary artery disease. No angina, CHF symptoms, palpitations or shortness of breath. GASTROINTESTINAL: No melena or abdominal pain. No GERD. Nausea/vomiting. GENITOURINARY: No hematuria, no prostatism, no polyuria. GAUGE INSPECTOR: No blackout, no dizziness, no headache, no double vision. GAIT: Wheelchair. MUSCULOSKELETAL: Osteoarthritis pain, no joint swelling. ENDOCRINE: No weight loss, no weight gain. SKIN: Not dry, no rash. PSYCHIATRIC: Not anxious, no depression, no suicidal thoughts, no homicidal thoughts. SOCIAL HISTORY: Marital Status: . Alcohol Usage: No. Tobacco Usage: Quit 30 years ago. FAMILY HISTORY: Father Mother MEDICATIONS: Protonix 40mg BID Symbicort 160/45 Lipitor 20mg daily Lasix 20mg daily Phenobarbital 64.8mg BID Lexapro 10mg daily Nystatin powder Potassium 20meq BID Metformin 500mg Q daily Plavix 75mg daily Ferrous sulfate 325mg Vitamin D 2000 units daily Tramadol 50mg BID PRN Coreg 12.5mg BID Enalapril 20mg BID O2 PRN ALLERGIES: Penicillin PHYSICAL EXAMINATION: V/S: Pulse 76, blood pressure 100/58, temperature 97.9, oxygen saturation 95%. GENERAL APPEARANCE: Oriented times three. Pale. HEENT: Dry mucous membranes. NECK: No JVP, no bruits. RESPIRATORY: Decreased breath sounds. CARDIOVASCULAR: S1, S2, no S3, no murmur. No cyanosis, clubbing. No ascites. GI/ABDOMEN: No tenderness. Bowel sounds are active. Poor skin turgor. EXTREMITIES: edema, pulses +1, equal. GAUGE INSPECTOR: Deep tendon reflexes, sensory, motor and gait all normal. RECTAL: Refused/PELVIC: Refused. ASSESSMENT: 1. Dehydration 2. Acute gastritis 3. Hypotension 4. Chronic anemia 5. Dementia 6. Hypertension 7. CAD 8. Edema 9. 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 Admit 2. Routine telemetry orders 3. CBC and CMP now and daily 4. Phenobarbital level 5. Urinalysis 6. Chest x-ray 7. Continue home medications 8. ABG on room air times one 9. Normal saline IV at 100cc an hour times 12 then 75cc an hour 10.Fall precautions 11.1cc Decadron IM today 4mg 12.Zofran 4mg IV Q 6 hours PRN 13.[place]/regular diet 14.Hold Lasix TIME SPENT: More than 70 minutes. MTDD
--- NOTE | 2021-11-10 15:59 | RS.PTINEVL ---
Subjective - Patient information Date of Evaluation: 11/10/21 Date of Arrival on Unit: 11/09/21 Admitted From:: Home Diagnosis: weakness, dehydration, n/v Usual Living Arrangement: With grandson Living Arrangement Comments: lives with grandson, daughter is very involved in her care. Home Environment: House, Ramp Medical History: Hypertension, COPD, Diabetes, Arthritis Medical History Comments:: h/o COVID 05/2021, [place], skin CA of nose, seizure, Surgical History: Knee Replacement (Right ), Cervical Spine (x4), Hysterectomy Surgical History Comments:: brain surgery, Medications: see chart Subjective Information/ Patient Comments:: pt states that she is tired. pt states "I am ready to ." pt states that her kids tell her she can't give up, but she states she can give up. - Level of function Prior to this admission, the patient could do the following:: Partially Dependent Ambulation Abilities prior to this admission: pt was amb up until approx 2 weeks ago. Current Level of Function: Dependent Current Equipment Used at Home: Wheelchair, potty chair, medical bad, left chair, shower chair. Pain Assessement - Location R knee Description: Sharp Pain Behavior: Rubbing Site, Facial Grimacing Pain Aggravating Factors: Changing Position Interventions - Objective Patient Orientation: Person, Place, Situation Current Interventions: IV's, Telemetry, Ziegler Catheter Range of Motion - ROM Right Upper Extremity AROM: Slight limitation (limited R shld ROM) Left Upper Extremity AROM: WFL's Right Lower Extremity AROM: Slight limitation (limited R knee ROM) Left Lower Extremity AROM: WFL's Muscle Strength - Muscle Strength Right Upper Extremity Strength: Severe Weakness (R shld flex 3-/5, elbow flex/ext 3+/5) Left Upper Extremity Strength: Mild Weakness (grossly 4-/5) Right Lower Extremity Strength: Mild Weakness (hip flex 3+/5, knee flex/ext 3/5, ankle 3+/5) Left Lower Extremity Strength: Mild Weakness (hip flex 3+/5, knee flex/ext 4-/5, ankle 4-/5) Sensation - Sensation Right Upper Extremity Sensation: Intact/Normal Left Upper Extremity Sensation: Intact/Normal Right Lower Extremity Sensation: Intact/Normal Left Lower Extremity Sensation: Intact/Normal Palpation Palpation Findings: Tenderness (R knee) Balance - Sitting Balance and Reactions Static Sitting Balance: Fair (fair-) Dynamic Sitting Balance: Poor Sitting Equilibrium Reactions: Delayed Left, Delayed Right Sitting Protective Reactions: Delayed Left, Delayed Right - Comments Balance Assessment Comments: standing not tested, pt refused to attempt standing. Functional Mobility - Bed Mobility Rolling R/L: Mod Assist, 1 person assist Scooting: Max Assist, 2 person assist Supine to Sit: Max Assist, 2 person assist Sit to Supine: Max Assist, 2 person assist Comments:: pt sat at side of bed x 8 mins with UE support and occasionally placing her hands in her lap. pt able to maintain without challenges. pt able to reach with LUE across midline, however not away. pt unable to reach with R shld. Feel nursing staff should use mechanical lift for bed to/from chair transfers. - Transfers Comments:: pt refused to attempt standing - Safety Awareness Safety Awareness: Poor MARK INDEX SCORE: n/a Treatment time - Time with patient Length of Evaluation: 19 Total treatment time: 23 Patient Education - Education Patient Education: Activity Modification, Education of Plan of Care Teaching Recipient: Patient Teaching Methods: Discussion Comments: Discussion with patient regarding POC. pt states she doesn't think she can stand or walk. She states she is ready to . Assessment - Assessment Problem List:: Decreased level of function, Requires training/education, Decreased safety/Risk of falls, Weakness, Pain limits previous level of function, Cognitive status limits abilities Rehab Potential: Fair (fair/poor) Further Therapy Indicated?: Yes Candidate for Swing Bed for Therapy Services?: Do not feel pt would not be a candidate for swing bed due to low level of function. Evaluation Complexity: HISTORY: Medium, EXAM OF BODY SYSTEMS: Medium, CLINICAL PRESENTATION: Medium, CLINICAL DECISION MAKING: Medium Patient's Goal(s): pt unable to express, pt appears very depressed this date. Short Term Goals GOAL #1: pt demonstrate rolling with bedrails min x 1, scooting mod x 2 Goal to be met by: 11/14/21 GOAL #2: Transfer sup to /from sit mod x 1 Goal to be met by: 11/14/21 GOAL #3: Transfer sit to/from stand mod x 2 Goal to be met by: 11/14/21 GOAL #4: pt transfer bed to chair mod x 2 Goal to be met by: 11/14/21 GOAL #5: pt static sit balance fair Goal to be met by: 11/14/21 GOAL #6: . Fiberglass Insulation Installer Goals GOAL #1: Transfer sup to/from sit min x1, sit to/from stand mod x 1 Goal to be met by: 11/16/21 GOAL #2: pt amb with rwx 20ft with mod x 2 Goal to be met by: 11/16/21 GOAL #3: Bed to/from chair min x 1 Goal to be met by: 11/16/21 Plan Plan of Care: Therapeutic EX, Therapeutic Activity Other:: progress to gait training if able. Frequency of Treatment: 1-2 X day, as tolerated Duration of Treatment: 1 Week Anticipated Discharge Destination: Home Treatment Diagnosis (ICD 10 Codes): R 26.2 difficulty walking. R 26.81 impaired balance. M 62.81 weakness Has the Physician been added for Co-signature?: Yes
[2021-11-10] MEDS: LIPITOR PO SCH (20:09)
[2021-11-11] MEDS: TYLENOL PO PRN (00:19)
[2021-11-11] MEDS: SODIUM CHLORIDE 1,000 ML IV SCH ×2 (01:45→14:42)
[2021-11-11] MEDS: PROTONIX PO SCH ×2 (05:30→17:07)
[2021-11-11] MEDS: FERROUS SULFATE PO SCH (05:30)
[2021-11-11 05:50] LABS: BASOPHILS % (AUTO) 0.4 % (0.0-3.0); EOSINOPHILS % (AUTO) 0.8 % (0.0-7.0); HEMATOCRIT 29.8 % (37.0-47.0); HEMOGLOBIN 9.2 g/dl (12.0-16.0); IMMATURE GRANULOCYTE % (AUTO) 0.4 % (0.0-5.0); LYMPHOCYTES # (AUTO) 1.4 K/uL (0.60-3.4); LYMPHOCYTES % (AUTO) 27.1 (10.0-50.0); MEAN CORPUSCULAR HEMOGLOBIN 29.2 pg (27.0-31.0); MEAN CORPUSCULAR HGB CONC 30.9 (31.8-35.4); MEAN CORPUSCULAR VOLUME 94.6 fl (81.0-99.0); MONOCYTES # (AUTO) 0.7 K/uL (0.4-2.0); NEUTROPHILS % (AUTO) 57.3 % (42.2-75.2); PLATELET COUNT 320 10^3/uL (140-440); RDW COEFFICIENT OF VARIATION 13.8 % (11.6-14.8); RED BLOOD COUNT 3.15 10^6/ul (4.20-5.40); WHITE BLOOD COUNT 5.28 K/ul (4.6-10.2)
[2021-11-11 06:09] LABS: ALANINE AMINOTRANSFERASE 8.5 U/L (0-35); ALBUMIN 2.44 g/dL (3.5-5.0); ALKALINE PHOSPHATASE 88.2 U/L (53-141); ASPARTATE AMINO TRANSFERASE 19.7 U/L (14-36); BILIRUBIN,TOTAL 0.33 mg/dL (0.2-1.3); BLOOD UREA NITROGEN 11.7 mg/dL (7-17); CALCIUM 8.51 mg/dL (8.4-10.2); CARBON DIOXIDE 22.4 mmol/L (22-30.0); CHLORIDE 110.4 mmol/L (98-107); CREATININE 0.7 mg/dL (0.60-1.30); GLUCOSE 77.8 mg/dL (74-106); POTASSIUM 4.51 mmol/L (3.5-5.1); SODIUM 135.7 mmol/L (134.5-145); TOTAL PROTEIN 5.65 g/dL (6.3-8.2)
[2021-11-11] MEDS: SYMBICORT 160-4.5 MCG INHALER IH SCH ×2 (08:43→20:24)
[2021-11-11] MEDS: K-DUR PO SCH ×2 (08:44→17:08)
[2021-11-11] MEDS: COLACE PO SCH ×2 (08:45→20:24)
[2021-11-11] MEDS: GLUCOPHAGE PO SCH (08:45)
[2021-11-11] MEDS: VITAMIN D PO SCH (08:46)
[2021-11-11] MEDS: COREG PO SCH ×2 (08:46→17:08)
[2021-11-11] MEDS: PLAVIX PO SCH (08:46)
[2021-11-11] MEDS: PHENOBARBITAL PO SCH ×2 (08:46→20:25)
[2021-11-11] MEDS: MULTIVITAMIN TABLET PO SCH (08:47)
[2021-11-11] MEDS: ULTRAM PO SCH ×2 (08:47→20:24)
[2021-11-11] MEDS: LEXAPRO PO SCH (08:47)
[2021-11-11] MEDS: VASOTEC PO SCH ×2 (08:48→20:25)
[2021-11-11] MEDS: NYSTOP POWDER TP SCH ×3 (08:49→20:24)
[2021-11-11] MEDS: LIPITOR PO SCH (20:25)
[2021-11-12] MEDS: SODIUM CHLORIDE 1,000 ML IV SCH ×2 (04:15→17:36)
[2021-11-12] MEDS: FERROUS SULFATE PO SCH (05:40)
[2021-11-12] MEDS: PROTONIX PO SCH ×2 (05:40→17:01)
[2021-11-12 06:24] LABS: BASOPHILS % (AUTO) 0.2 % (0.0-3.0); EOSINOPHILS # (AUTO) 0.1 K/ul (0.0-0.7); EOSINOPHILS % (AUTO) 1.2 % (0.0-7.0); HEMOGLOBIN 9.9 g/dl (12.0-16.0); IMMATURE GRANULOCYTE % (AUTO) 0.7 % (0.0-5.0); LYMPHOCYTES # (AUTO) 1.4 K/uL (0.60-3.4); LYMPHOCYTES % (AUTO) 23.4 (10.0-50.0); MEAN CORPUSCULAR HEMOGLOBIN 29.5 pg (27.0-31.0); MEAN CORPUSCULAR HGB CONC 31.9 (31.8-35.4); MEAN CORPUSCULAR VOLUME 92.3 fl (81.0-99.0); MONOCYTES # (AUTO) 0.7 K/uL (0.4-2.0); MONOCYTES % (AUTO) 11.5 (0-10); NEUTROPHILS # (AUTO) 3.8 K/ul (2.0-6.9); PLATELET COUNT 300 10^3/uL (140-440); RDW COEFFICIENT OF VARIATION 13.5 % (11.6-14.8); RED BLOOD COUNT 3.36 10^6/ul (4.20-5.40); WHITE BLOOD COUNT 6.02 K/ul (4.6-10.2)
[2021-11-12 06:36] LABS: ALANINE AMINOTRANSFERASE 7.4 U/L (0-35); ALBUMIN 2.45 g/dL (3.5-5.0); ALKALINE PHOSPHATASE 92.4 U/L (53-141); ASPARTATE AMINO TRANSFERASE 15.7 U/L (14-36); BILIRUBIN,TOTAL 0.35 mg/dL (0.2-1.3); BLOOD UREA NITROGEN 7.9 mg/dL (7-17); CALCIUM 8.3 mg/dL (8.4-10.2); CARBON DIOXIDE 23.4 mmol/L (22-30.0); CHLORIDE 108.7 mmol/L (98-107); CREATININE 0.56 mg/dL (0.60-1.30); GLUCOSE 84.2 mg/dL (74-106); POTASSIUM 4.06 mmol/L (3.5-5.1); TOTAL PROTEIN 5.68 g/dL (6.3-8.2)
[2021-11-12] MEDS: VASOTEC PO SCH (08:25)
[2021-11-12] MEDS: NYSTOP POWDER TP SCH ×3 (08:25→20:26)
[2021-11-12] MEDS: SYMBICORT 160-4.5 MCG INHALER IH SCH ×2 (08:25→20:27)
[2021-11-12] MEDS: COREG PO SCH ×2 (08:26→17:01)
[2021-11-12] MEDS: PLAVIX PO SCH (08:26)
[2021-11-12] MEDS: COLACE PO SCH ×2 (08:26→20:27)
[2021-11-12] MEDS: VITAMIN D PO SCH (08:26)
[2021-11-12] MEDS: LEXAPRO PO SCH (08:26)
[2021-11-12] MEDS: K-DUR PO SCH ×2 (08:26→17:01)
[2021-11-12] MEDS: PHENOBARBITAL PO SCH ×2 (08:26→20:27)
[2021-11-12] MEDS: MULTIVITAMIN TABLET PO SCH (08:26)
[2021-11-12] MEDS: ULTRAM PO SCH ×2 (08:26→20:27)
[2021-11-12] MEDS: GLUCOPHAGE PO SCH (08:26)
[2021-11-12] MEDS: LIPITOR PO SCH (20:27)
[2021-11-12] MEDS: COZAAR PO SCH (20:27)
[2021-11-13] MEDS: FERROUS SULFATE PO SCH (05:42)
[2021-11-13] MEDS: PROTONIX PO SCH ×2 (05:42→17:38)
[2021-11-13 05:50] LABS: BASOPHILS % (AUTO) 0.3 % (0.0-3.0); EOSINOPHILS # (AUTO) 0.1 K/ul (0.0-0.7); EOSINOPHILS % (AUTO) 0.8 % (0.0-7.0); HEMATOCRIT 30.4 % (37.0-47.0); HEMOGLOBIN 9.4 g/dl (12.0-16.0); IMMATURE GRANULOCYTE # (AUTO) 0.1 (0.0-1.0); IMMATURE GRANULOCYTE % (AUTO) 0.8 % (0.0-5.0); LYMPHOCYTES # (AUTO) 1.7 K/uL (0.60-3.4); LYMPHOCYTES % (AUTO) 28.2 (10.0-50.0); MEAN CORPUSCULAR HGB CONC 30.9 (31.8-35.4); MEAN CORPUSCULAR VOLUME 93.8 fl (81.0-99.0); MONOCYTES # (AUTO) 0.7 K/uL (0.4-2.0); MONOCYTES % (AUTO) 11.7 (0-10); NEUTROPHILS # (AUTO) 3.5 K/ul (2.0-6.9); NEUTROPHILS % (AUTO) 58.2 % (42.2-75.2); PLATELET COUNT 282 10^3/uL (140-440); RDW COEFFICIENT OF VARIATION 13.6 % (11.6-14.8); RED BLOOD COUNT 3.24 10^6/ul (4.20-5.40); WHITE BLOOD COUNT 5.99 K/ul (4.6-10.2)
[2021-11-13 06:04] LABS: ALANINE AMINOTRANSFERASE 6.8 U/L (0-35); ALBUMIN 2.16 g/dL (3.5-5.0); ALKALINE PHOSPHATASE 83.5 U/L (53-141); ASPARTATE AMINO TRANSFERASE 15.2 U/L (14-36); BILIRUBIN,TOTAL 0.26 mg/dL (0.2-1.3); BLOOD UREA NITROGEN 7.5 mg/dL (7-17); CALCIUM 8.09 mg/dL (8.4-10.2); CARBON DIOXIDE 23.9 mmol/L (22-30.0); CHLORIDE 111.7 mmol/L (98-107); CREATININE 0.64 mg/dL (0.60-1.30); GLUCOSE 76.2 mg/dL (74-106); POTASSIUM 4.1 mmol/L (3.5-5.1); SODIUM 134.8 mmol/L (134.5-145); TOTAL PROTEIN 5.17 g/dL (6.3-8.2)
[2021-11-13] MEDS: SODIUM CHLORIDE 1,000 ML IV SCH ×2 (07:52→20:25)
[2021-11-13] MEDS ORDERED: SODIUM CHLORIDE 500 ML IV SCH (08:00)
[2021-11-13] MEDS: LEXAPRO PO SCH (08:05)
[2021-11-13] MEDS: COLACE PO SCH ×2 (08:06→20:24)
[2021-11-13] MEDS: K-DUR PO SCH ×2 (08:06→17:38)
[2021-11-13] MEDS: PLAVIX PO SCH (08:06)
[2021-11-13] MEDS: COREG PO SCH ×2 (08:06→17:38)
[2021-11-13] MEDS: MULTIVITAMIN TABLET PO SCH (08:06)
[2021-11-13] MEDS: PHENOBARBITAL PO SCH ×2 (08:06→20:24)
[2021-11-13] MEDS: VITAMIN D PO SCH (08:07)
[2021-11-13] MEDS: COZAAR PO SCH ×2 (08:07→20:24)
[2021-11-13] MEDS: ULTRAM PO SCH ×2 (08:07→20:24)
[2021-11-13] MEDS: SYMBICORT 160-4.5 MCG INHALER IH SCH ×2 (08:08→20:29)
[2021-11-13] MEDS: NYSTOP POWDER TP SCH ×3 (08:08→20:29)
[2021-11-13] MEDS ORDERED: LEXAPRO PO SCH (09:00)
--- NOTE | 2021-11-13 09:00 | PCM.PROG ---
Attending Provider: ATTENDING PROVIDER: Dr. BART CAICEDO This patient is seen with Kayleigh Gupta, Nurse Practitioner. DATE OF SERVICE: 11/13/21 SUBJECTIVE: This 81 year old /WHITE F was hospitalized 11/09/21. Still not eating much. Blood pressure improved. The patient states very depressed, we will increase Lexapro. REVIEW OF SYSTEMS: CONSTITUTIONAL: No night sweats. Fatigue. No fever or chills. Weakness. HEENT: Eyes: No visual changes. No eye pain. No eye discharge. ENT: No runny nose. No epistaxis. No sinus pain. No odynophagia. No congestion. RESPIRATORY: No cough, no congestion. No hemoptysis. No shortness of breath. CARDIOVASCULAR: No angina symptoms. No CHF symptoms. No atypical chest pain for CAD. No palpitations. No orthopnea.. GASTROINTESTINAL: No abdominal pain. No nausea or vomiting. No diarrhea or constipation. No hematemesis. No hematochezia. GENITOURINARY: No urgency. No frequency. No dysuria. No hematuria. No obstructive symptoms. No discharge. No pain. No significant abnormal bleeding. MUSCULOSKELETAL: No musculoskeletal pain; no joint swelling. NEUROLOGICAL: Awake, alert, oriented to time, place and person. No headache. No neck pain. No syncope. No seizures. No dizziness. PSYCHIATRIC: Not anxious. Depression. No suicidal thoughts. No homicidal thoughts. SKIN: No rash. No lesions. No wounds. ENDOCRINE: No unexplained weight loss. No weight gain. HEMATOLOGIC/LYMPHATIC: Anemia. No purpura. No petechiae. No prolonged or excessi ve bleeding. No palpable lymph nodes. PHYSICAL EXAMINATION: GENERAL: The patient is awake, alert and oriented, lying in bed in no distress. VITAL SIGNS: Temperature 97.6 F, Pulse 72, Respiratory Rate 16, BP 134/62, Pulse Ox 94% HEENT: Head normocephalic, atraumatic. Eyes: Extraocular muscles are intact. Pupils are equal, round and reactive to light and accommodation. Ears: No lesions. Nose appeared normal. Throat: No exudate or erythema. NECK: Supple. No JVD, no carotid bruit. No lymphadenopathy or thyromegaly. LUNGS: Diminished breath sounds. Clear to auscultation. Percussion note normal. Chest symmetrical. HEART: S1, S2, no S3. No murmurs. No cyanosis or clubbing. No ascites. Pulses: Dorsalis pedis and posterior tibial pulses +1 to +2 both sides. ABDOMEN: Soft. Non-tender. Bowel sounds active. No CVA tenderness. No mass felt. EXTREMITIES: No edema. Full range of motion of all extremities, equal. NEUROLOGIC: No focal deficit. Cranial nerves II through XII are grossly intact. No headache. No double vision. SKIN: Not dry. Intact. Turgor-normal. LYMPHATIC: No palpable lymph nodes/no lymphedema. MUSCULOSKELETAL: Normal joints with no swelling. Muscle tone is normal. LAB REVIEW: 11/13/21 04:51 11/13/21 04:51 11/13/21 04:51: Sodium 134.8, Potassium 4.10, Chloride 111.7 H, Carbon Dioxide 23.9, Anion Gap 3.30, BUN 7.5, Creatinine 0.64, Estimated GFR (MDRD) 90.00, BUN/Creatinine Ratio 11.71, Glucose 76.2, Calcium 8.09 L, Total Bilirubin 0.26, AST 15.2, ALT 6.8, Alkaline Phosphatase 83.5, Total Protein 5.17 L, Albumin 2.16 L, Globulin 3.01, Albumin/Globulin Ratio 0.71 11/13/21 04:51: WBC 5.99, RBC 3.24 L, Hgb 9.4 L, Hct 30.4 L, MCV 93.8, MCH 29.0, MCHC 30.9 L, RDW Coeff of [place]anne 13.6, Plt Count 282, Immature Gran % (Auto) 0.8, Neut % (Auto) 58.2, Lymph % (Auto) 28.2, [place] % (Auto) 11.7 H, Eos % (Auto) 0.8, Baso % (Auto) 0.3, Neut # (Auto) 3.5, Lymph # (Auto) 1.7, [place] # (Auto) 0.7, Eos # (Auto) 0.1, Baso # (Auto) 0.0, Immature Gran # (Auto) 0.1 ASSESSMENT: Please see below. 1. Dehydration, Resolved 2. Chronic anemia 3. Generalized weakness 4. Depression PLAN: 1. Increased Lexapro 20mg 2. Will discuss with family possible need for Hospice referral. Plan and coordination of the patient's care discussed in the presence of Talk Show Host and nurse. SCRIBED BY: JANICE MACHADO Carousel Attendant scribed while in presence of service performed by Dr. Caicedo/Kayleigh Gupta APRN on 11/13/21 ([id number])
[2021-11-13] MEDS ORDERED: LEXAPRO PO ONE (09:30)
[2021-11-13] MEDS: ZOFRAN 4 MG/2 ML IVP PRN (10:24)
[2021-11-13] MEDS: TYLENOL PO PRN (12:31)
[2021-11-13] MEDS: LIPITOR PO SCH (20:24)
[2021-11-14 05:23] LABS: BASOPHILS % (AUTO) 0.4 % (0.0-3.0); EOSINOPHILS # (AUTO) 0.1 K/ul (0.0-0.7); EOSINOPHILS % (AUTO) 1.1 % (0.0-7.0); HEMATOCRIT 27.9 % (37.0-47.0); HEMOGLOBIN 8.7 g/dl (12.0-16.0); IMMATURE GRANULOCYTE # (AUTO) 0.1 (0.0-1.0); IMMATURE GRANULOCYTE % (AUTO) 1.3 % (0.0-5.0); LYMPHOCYTES # (AUTO) 1.2 K/uL (0.60-3.4); LYMPHOCYTES % (AUTO) 23.3 (10.0-50.0); MEAN CORPUSCULAR HEMOGLOBIN 29.1 pg (27.0-31.0); MEAN CORPUSCULAR HGB CONC 31.2 (31.8-35.4); MEAN CORPUSCULAR VOLUME 93.3 fl (81.0-99.0); MONOCYTES # (AUTO) 0.6 K/uL (0.4-2.0); MONOCYTES % (AUTO) 11.3 (0-10); NEUTROPHILS # (AUTO) 3.3 K/ul (2.0-6.9); NEUTROPHILS % (AUTO) 62.6 % (42.2-75.2); PLATELET COUNT 233 10^3/uL (140-440); RDW COEFFICIENT OF VARIATION 13.8 % (11.6-14.8); RED BLOOD COUNT 2.99 10^6/ul (4.20-5.40); WHITE BLOOD COUNT 5.33 K/ul (4.6-10.2)
[2021-11-14 05:40] LABS: ALBUMIN 1.95 g/dL (3.5-5.0); ALKALINE PHOSPHATASE 75.7 U/L (53-141); ASPARTATE AMINO TRANSFERASE 16.7 U/L (14-36); BILIRUBIN,TOTAL 0.2 mg/dL (0.2-1.3); BLOOD UREA NITROGEN 8.2 mg/dL (7-17); CALCIUM 7.82 mg/dL (8.4-10.2); CREATININE 0.63 mg/dL (0.60-1.30); GLUCOSE 84.5 mg/dL (74-106); POTASSIUM 3.78 mmol/L (3.5-5.1); SODIUM 135.4 mmol/L (134.5-145); TOTAL PROTEIN 4.8 g/dL (6.3-8.2)
[2021-11-14] MEDS: FERROUS SULFATE PO SCH (05:49)
[2021-11-14] MEDS: PROTONIX PO SCH ×2 (05:49→17:19)
--- NOTE | 2021-11-14 08:57 | PCM.PROG ---
Attending Provider: ATTENDING PROVIDER: Dr. BART CAICEDO This patient is seen with Kayleigh Gupta, Nurse Practitioner. DATE OF SERVICE: 11/14/21 SUBJECTIVE: This 81 year old /WHITE F was hospitalized 11/09/21. The patient continues to refuse to eat. Has some edema in arms. Decreased urine output. States she wants to go home and not return to the hospital. Discussed with daughter about Hospice and believe her condition will not improve. REVIEW OF SYSTEMS: CONSTITUTIONAL: No night sweats. No fatigue, malaise, lethargy. No fever or chills. Weakness. HEENT: Eyes: No visual changes. No eye pain. No eye discharge. ENT: No runny nose. No epistaxis. No sinus pain. No odynophagia. No congestion. RESPIRATORY: No cough, no congestion. No hemoptysis. No shortness of breath. CARDIOVASCULAR: No angina symptoms. No CHF symptoms. No atypical chest pain for CAD. No palpitations. No orthopnea.. GASTROINTESTINAL: No abdominal pain. No nausea or vomiting. No diarrhea or cons tipation. No hematemesis. No hematochezia. Loss of appetite. GENITOURINARY: No urgency. No frequency. No dysuria. No hematuria. No obstructive symptoms. No discharge. No pain. No significant abnormal bleeding. MUSCULOSKELETAL: No musculoskeletal pain; no joint swelling. NEUROLOGICAL: Awake, alert, oriented to time, place and person. No headache. No neck pain. No syncope. No seizures. No dizziness. PSYCHIATRIC: Not anxious. No depression. No suicidal thoughts. No homicidal thoughts. SKIN: No rash. No lesions. No wounds. ENDOCRINE: No unexplained weight loss. No weight gain. HEMATOLOGIC/LYMPHATIC: Anemia. No purpura. No petechiae. No prolonged or excessive bleeding. No palpable lymph nodes. PHYSICAL EXAMINATION: GENERAL: The patient is awake, alert and oriented, lying in bed in no distress. VITAL SIGNS: Temperature 97 F, Pulse 69, Respiratory Rate 16, BP 134/65, Pulse Ox 92% HEENT: Head normocephalic, atraumatic. Eyes: Extraocular muscles are intact. Pupils are equal, round and reactive to light and accommodation. Ears: No lesions. Nose appeared normal. Throat: No exudate or erythema. NECK: Supple. No JVD, no carotid bruit. No lymphadenopathy or thyromegaly. LUNGS: Diminished breath sounds. Clear to auscultation. Percussion note normal. Chest symmetrical. HEART: S1, S2, no S3. No murmurs. No cyanosis or clubbing. No ascites. Pulses: Dorsalis pedis and posterior tibial pulses +1 to +2 both sides. ABDOMEN: Soft. Non-tender. Bowel sounds active. No CVA tenderness. No mass felt. EXTREMITIES: Generalized edema to all extremities. Full range of motion of all extremities, equal. NEUROLOGIC: No focal deficit. Cranial nerves II through XII are grossly intact. No headache. No double vision. SKIN: Not dry. Intact. Turgor-normal. LYMPHATIC: No palpable lymph nodes/no lymphedema. MUSCULOSKELETAL: Normal joints with no swelling. Muscle tone is normal. LAB REVIEW: 11/14/21 05:10 11/14/21 05:10 11/14/21 05:10: Sodium 135.4, Potassium 3.78, Chloride 114.0 H, Carbon Dioxide 2 1.0 L, Anion Gap 4.18, BUN 8.2, Creatinine 0.63, Estimated GFR (MDRD) 91.00, BUN/Creatinine Ratio 13.01, Glucose 84.5, Calcium 7.82 L, Total Bilirubin 0.20, AST 16.7, ALT 7.0, Alkaline Phosphatase 75.7, Total Protein 4.80 L, Albumin 1.95 L, Globulin 2.85, Albumin/Globulin Ratio 0.68 11/14/21 05:10: WBC 5.33, RBC 2.99 L, Hgb 8.7 L, Hct 27.9 L, MCV 93.3, MCH 29.1, MCHC 31.2 L, RDW Coeff of [place] 13.8, Plt Count 233, Immature Gran % (Auto) 1.3, Neut % (Auto) 62.6, Lymph % (Auto) 23.3, [place] % (Auto) 11.3 H, Eos % (Auto) 1.1, Baso % (Auto) 0.4, Neut # (Auto) 3.3, Lymph # (Auto) 1.2, [place] # (Auto) 0.6, Eos # (Auto) 0.1, Baso # (Auto) 0.0, Immature Gran # (Auto) 0.1 11/09/21 13:08: Phenobarbital 11 ASSESSMENT: Please see below. 1. Failure to thrive 2. Chronic anemia 3. Anasarca PLAN: 1. Will talk to daughter again regarding Hospice 2. Discontinue IV fluids 3. Lasix 20mg IV 4. Given the multiple medical condition and fact the patient is refusing to eat, very weak her prognosis is poor. SCRIBED BY: JANICE MACHADO [employer] scribed while in presence of service performed by Dr. Caicedo/Kayleigh Gupta APRN on 11/14/21 ([id number])
[2021-11-14] MEDS ORDERED: LASIX IVP ONE (09:02)
[2021-11-14] MEDS: NYSTOP POWDER TP SCH ×3 (09:07→20:35)
[2021-11-14] MEDS: SYMBICORT 160-4.5 MCG INHALER IH SCH ×2 (09:07→20:35)
[2021-11-14] MEDS: PHENOBARBITAL PO SCH ×2 (09:08→20:34)
[2021-11-14] MEDS: ULTRAM PO SCH ×2 (09:08→20:34)
[2021-11-14] MEDS: COREG PO SCH ×2 (09:08→17:19)
[2021-11-14] MEDS: COZAAR PO SCH ×2 (09:08→20:34)
[2021-11-14] MEDS: VITAMIN D PO SCH (09:08)
[2021-11-14] MEDS: COLACE PO SCH ×2 (09:08→20:34)
[2021-11-14] MEDS: LEXAPRO PO SCH (09:09)
[2021-11-14] MEDS: MULTIVITAMIN TABLET PO SCH (09:09)
[2021-11-14] MEDS: K-DUR PO SCH ×2 (09:09→17:19)
[2021-11-14] MEDS: PLAVIX PO SCH (09:09)
--- NOTE | 2021-11-14 10:36 | PN ---
DATE OF SERVICE: 11/11/21 SUBJECTIVE: 81 year old white female hospitalized with dehydration, gastritis and hypotension. The patient's condition has improved. She is eating now with the help. Daughter and granddaughter are feeding her. The patient is still confused and weak. REVIEW OF SYSTEMS: CONSTITUTIONAL: No night sweats. No fatigue, malaise, lethargy. No fever or chills. HEENT: Eyes: No visual changes. No eye pain. No eye discharge. ENT: No runny nose. No epistaxis. No sinus pain. No sore throat. No odynophagia. No congestion. RESPIRATORY: No cough, no congestion. No hemoptysis. No shortness of breath. CARDIOVASCULAR: No angina symptoms. No CHF symptoms. No atypical chest pain for CAD. No palpitations. No PND. No orthopnea. GASTROINTESTINAL: No abdominal pain. No nausea or vomiting. No diarrhea or constipation. No hematemesis. No hematochezia. GENITOURINARY: No urgency. No frequency. No dysuria. No hematuria. No obstructive symptoms. No discharge. No pain. No significant abnormal bleeding. MUSCULOSKELETAL: No musculoskeletal pain; no joint swelling. NEUROLOGICAL: No headache. No neck pain. No syncope. No seizures. No dizziness. PSYCHIATRIC: Not anxious. No depression. No suicidal thoughts. No homicidal thoughts. SKIN: No rash. No lesions. No wounds. ENDOCRINE: No unexplained weight loss. No weight gain. HEMATOLOGIC/LYMPHATIC: No anemia. No purpura. No petechiae. No prolonged or excessive bleeding. No palpable lymph nodes. PHYSICAL EXAMINATION: VITAL SIGNS: Temperature 97.3, pulse 75, respiratory rate 16, blood pressure 144/68 and pulse ox 93%. HEENT: Head normocephalic, atraumatic. Eyes: Extraocular muscles are intact. Pupils are equal, round and reactive to light and accommodation. Ears: No lesions. Nose appeared normal. Throat: No exudate or erythema. NECK: Supple. No JVD, no carotid bruit. No lymphadenopathy or thyromegaly. LUNGS: Decreased breath sounds but clear to auscultation. Percussion note normal. Chest symmetrical. HEART: S1, S2, no S3. No murmurs. No cyanosis or clubbing. No ascites. Pulses: Dorsalis pedis and posterior tibial pulses +1 to +2 bilaterally. ABDOMEN: Soft. Nontender. Bowel sounds active. No CVA tenderness. No mass felt. EXTREMITIES: No edema. Full range of motion of all extremities, equal. NEUROLOGIC: No focal deficit. Cranial nerves II through XII are grossly intact. No headache. No double vision. SKIN: Not dry. Intact. Turgor - normal. LYMPHATIC: No palpable lymph nodes/no lymphedema. MUSCULOSKELETAL: Normal joints with no swelling. Muscle tone is normal. LABS: Hgb 9.2, hct 29, WBC 5,200 normal differential, creatinine 0.7, BUN 11, potassium 4.5 ASSESSMENT: 1. Dehydration, seemed to have resolved, skin turgor a lot better 2. Acute gastritis resolved 3. Hypotension, resolved 4. Dementia, worsened 5. Anemia, stable. PLAN: 1. Overall nutritional status is declining and daughter understands it 2. The patient is DNR. TIME SPENT: More than 30 minutes. Plan and coordination of the patient's care discussed in the presence of nurse. SHREYA
[2021-11-14] MEDS: LIPITOR PO SCH (20:34)
[2021-11-15] MEDS: PROTONIX PO SCH ×2 (05:55→17:38)
[2021-11-15] MEDS: FERROUS SULFATE PO SCH (05:56)
[2021-11-15 06:35] LABS: BASOPHILS % (AUTO) 0.4 % (0.0-3.0); EOSINOPHILS # (AUTO) 0.1 K/ul (0.0-0.7); EOSINOPHILS % (AUTO) 1.7 % (0.0-7.0); HEMATOCRIT 27.1 % (37.0-47.0); HEMOGLOBIN 8.7 g/dl (12.0-16.0); IMMATURE GRANULOCYTE # (AUTO) 0.1 (0.0-1.0); IMMATURE GRANULOCYTE % (AUTO) 1.3 % (0.0-5.0); LYMPHOCYTES # (AUTO) 1.4 K/uL (0.60-3.4); LYMPHOCYTES % (AUTO) 26.5 (10.0-50.0); MEAN CORPUSCULAR HEMOGLOBIN 29.6 pg (27.0-31.0); MEAN CORPUSCULAR HGB CONC 32.1 (31.8-35.4); MEAN CORPUSCULAR VOLUME 92.2 fl (81.0-99.0); MONOCYTES # (AUTO) 0.6 K/uL (0.4-2.0); MONOCYTES % (AUTO) 11.5 (0-10); NEUTROPHILS # (AUTO) 3.1 K/ul (2.0-6.9); NEUTROPHILS % (AUTO) 58.6 % (42.2-75.2); PLATELET COUNT 246 10^3/uL (140-440); RED BLOOD COUNT 2.94 10^6/ul (4.20-5.40); WHITE BLOOD COUNT 5.29 K/ul (4.6-10.2)
[2021-11-15 06:51] LABS: BILIRUBIN,TOTAL 0.2 mg/dL (0.2-1.3); CALCIUM 7.8 mg/dL (8.4-10.2); CREATININE 0.7 mg/dL (0.60-1.30); POTASSIUM 3.5 mmol/L (3.5-5.1); TOTAL PROTEIN 5.2 g/dL (6.3-8.2)
[2021-11-15] MEDS: COZAAR PO SCH ×2 (08:09→21:12)
[2021-11-15] MEDS: COREG PO SCH ×2 (08:09→17:39)
[2021-11-15] MEDS: VITAMIN D PO SCH (08:47)
[2021-11-15] MEDS: NYSTOP POWDER TP SCH ×3 (08:47→21:13)
[2021-11-15] MEDS: SYMBICORT 160-4.5 MCG INHALER IH SCH ×2 (08:47→21:13)
[2021-11-15] MEDS: PHENOBARBITAL PO SCH ×2 (08:48→21:12)
[2021-11-15] MEDS: COLACE PO SCH ×2 (08:48→21:12)
[2021-11-15] MEDS: K-DUR PO SCH ×2 (08:48→17:38)
[2021-11-15] MEDS: ULTRAM PO SCH ×2 (08:48→21:12)
[2021-11-15] MEDS: MULTIVITAMIN TABLET PO SCH (08:48)
[2021-11-15] MEDS: PLAVIX PO SCH (08:48)
[2021-11-15] MEDS: LEXAPRO PO SCH (08:48)
--- NOTE | 2021-11-15 10:17 | PN ---
DATE OF SERVICE: 11/09/21 SUBJECTIVE: The patient was seen and examined with the Nurse Practitioner in the office. Case was discussed with the daughter. The patient is going to be hospitalized. History and Physical was done with Nurse Practitioner with plan of action. TIME SPENT: More than 30 minutes. Plan and coordination of the patient's care discussed in the presence of nurse. SHREYA
[2021-11-15] MEDS: LIPITOR PO SCH (21:12)
[2021-11-16] MEDS: PROTONIX PO SCH ×2 (05:30→17:01)
[2021-11-16] MEDS: FERROUS SULFATE PO SCH (05:30)
[2021-11-16 07:34] LABS: BASOPHILS % (AUTO) 0.3 % (0.0-3.0); EOSINOPHILS # (AUTO) 0.1 K/ul (0.0-0.7); EOSINOPHILS % (AUTO) 1.2 % (0.0-7.0); HEMATOCRIT 28.6 % (37.0-47.0); HEMOGLOBIN 9.1 g/dl (12.0-16.0); IMMATURE GRANULOCYTE # (AUTO) 0.1 (0.0-1.0); IMMATURE GRANULOCYTE % (AUTO) 0.8 % (0.0-5.0); LYMPHOCYTES # (AUTO) 1.6 K/uL (0.60-3.4); LYMPHOCYTES % (AUTO) 24.6 (10.0-50.0); MEAN CORPUSCULAR HEMOGLOBIN 29.3 pg (27.0-31.0); MEAN CORPUSCULAR HGB CONC 31.8 (31.8-35.4); MONOCYTES # (AUTO) 0.8 K/uL (0.4-2.0); MONOCYTES % (AUTO) 11.8 (0-10); NEUTROPHILS % (AUTO) 61.3 % (42.2-75.2); PLATELET COUNT 261 10^3/uL (140-440); RED BLOOD COUNT 3.11 10^6/ul (4.20-5.40); WHITE BLOOD COUNT 6.46 K/ul (4.6-10.2)
[2021-11-16 07:46] LABS: ALANINE AMINOTRANSFERASE 8.6 U/L (0-35); ALBUMIN 2.22 g/dL (3.5-5.0); ALKALINE PHOSPHATASE 87.1 U/L (53-141); ASPARTATE AMINO TRANSFERASE 19.7 U/L (14-36); BILIRUBIN,TOTAL 0.26 mg/dL (0.2-1.3); BLOOD UREA NITROGEN 9.8 mg/dL (7-17); CALCIUM 7.54 mg/dL (8.4-10.2); CHLORIDE 109.6 mmol/L (98-107); CREATININE 0.59 mg/dL (0.60-1.30); GLUCOSE 79.3 mg/dL (74-106); POTASSIUM 3.62 mmol/L (3.5-5.1); SODIUM 134.8 mmol/L (134.5-145); TOTAL PROTEIN 5.54 g/dL (6.3-8.2)
[2021-11-16] MEDS: SYMBICORT 160-4.5 MCG INHALER IH SCH ×2 (08:58→20:12)
[2021-11-16] MEDS: NYSTOP POWDER TP SCH ×3 (08:58→20:12)
[2021-11-16] MEDS: LEXAPRO PO SCH (08:59)
[2021-11-16] MEDS: PLAVIX PO SCH (08:59)
[2021-11-16] MEDS: COREG PO SCH ×2 (08:59→17:01)
[2021-11-16] MEDS: VITAMIN D PO SCH (08:59)
[2021-11-16] MEDS: COZAAR PO SCH ×2 (08:59→20:13)
[2021-11-16] MEDS: PHENOBARBITAL PO SCH ×2 (08:59→20:13)
[2021-11-16] MEDS: MULTIVITAMIN TABLET PO SCH (08:59)
[2021-11-16] MEDS: K-DUR PO SCH ×2 (08:59→17:01)
[2021-11-16] MEDS: COLACE PO SCH ×2 (09:00→20:13)
[2021-11-16] MEDS: ULTRAM PO SCH ×2 (09:00→20:13)
--- NOTE | 2021-11-16 09:25 | PCM.PROG ---
Attending Provider: ATTENDING PROVIDER: Dr. BART CAICEDO This patient is seen with Kayleigh Gupta, Nurse Practitioner. DATE OF SERVICE: 11/16/21 SUBJECTIVE: This 81 year old /WHITE F was hospitalized 11/09/21. Not much change. Hgb is slightly improved. The patient still with generalized edema due to decreased protein intake. Still not wanting to eat or get in the chair. Saturday discussed possible Hospice referral with family, still undecided. I will talk to the daughter again about this today. REVIEW OF SYSTEMS: CONSTITUTIONAL: No night sweats. No fatigue, malaise, lethargy. No fever or chills. Weakness. Failure to thrive. HEENT: Eyes: No visual changes. No eye pain. No eye discharge. ENT: No runny nose. No epistaxis. No sinus pain. No odynophagia. No congestion. RESPIRATORY: No cough, no congestion. No hemoptysis. No shortness of breath. CARDIOVASCULAR: No angina symptoms. No CHF symptoms. No atypical chest pain for CAD. No palpitations. No orthopnea.. GASTROINTESTINAL: No abdominal pain. No nausea or vomiting. No diarrhea or constipation. No hematemesis. No hematochezia. GENITOURINARY: No urgency. No frequency. No dysuria. No hematuria. No obstruct tristin symptoms. No discharge. No pain. No significant abnormal bleeding. MUSCULOSKELETAL: No musculoskeletal pain; no joint swelling. Edema. NEUROLOGICAL: Awake, alert, oriented to person. No headache. No neck pain. No syncope. No seizures. No dizziness. PSYCHIATRIC: Not anxious. No depression. No suicidal thoughts. No homicidal thoughts. SKIN: No rash. No lesions. No wounds. ENDOCRINE: No unexplained weight loss. No weight gain. HEMATOLOGIC/LYMPHATIC: No anemia. No purpura. No petechiae. No prolonged or excessive bleeding. No palpable lymph nodes. PHYSICAL EXAMINATION: GENERAL: The patient is awake, alert and oriented to person, lying in bed in no distress. VITAL SIGNS: Temperature 98 F, Pulse 70, Respiratory Rate 16, BP 117/59, Pulse Ox 93% HEENT: Head normocephalic, atraumatic. Eyes: Extraocular muscles are intact. Pupils are equal, round and reactive to light and accommodation. Ears: No lesions. Nose appeared normal. Throat: No exudate or erythema. NECK: Supple. No JVD, no carotid bruit. No lymphadenopathy or thyromegaly. LUNGS: Diminished breath sounds. Clear to auscultation. Percussion note normal. Chest symmetrical. HEART: S1, S2, no S3. No murmurs. No cyanosis or clubbing. No ascites. Pulses: Dorsalis pedis and posterior tibial pulses +1 to +2 both sides. ABDOMEN: Soft. Non-tender. Bowel sounds active. No CVA tenderness. No mass felt. EXTREMITIES: Generalized edema to arms and legs. Full range of motion of all extremities, equal. NEUROLOGIC: No focal deficit. Cranial nerves II through XII are grossly intact. No headache. No double vision. SKIN: Not dry. Intact. Turgor-normal. LYMPHATIC: No palpable lymph nodes/no lymphedema. MUSCULOSKELETAL: Normal joints with no swelling. Muscle tone is normal. LAB REVIEW: 11/16/21 07:32 11/16/21 07:32 11/16/21 07:32: Sodium 134.8, Potassium 3.62, Chloride 109.6 H, Carbon Dioxide 20.0 L, Anion Gap 8.82, BUN 9.8, Creatinine 0.59 L, Estimated GFR (MDRD) 98.00, BUN/Creatinine Ratio 16.61, Glucose 79.3, Calcium 7.54 L, Total Bilirubin 0.26, AST 19.7, ALT 8.6, Alkaline Phosphatase 87.1, Total Protein 5.54 L, Albumin 2.22 L, Globulin 3.32, Albumin/Globulin Ratio 0.66 11/16/21 07:32: WBC 6.46, RBC 3.11 L, Hgb 9.1 L, Hct 28.6 L, MCV 92.0, MCH 29.3, MCHC 31.8, RDW Coeff of Breanne 14.0, Plt Count 261, Immature Gran % (Auto) 0.8, Neut % (Auto) 61.3, Lymph % (Auto) 24.6, [place] % (Auto) 11.8 H, Eos % (Auto) 1.2, Baso % (Auto) 0.3, Neut # (Auto) 4.0, Lymph # (Auto) 1.6, [place] # (Auto) 0.8, Eos # (Auto) 0.1, Baso # (Auto) 0.0, Immature Gran # (Auto) 0.1 ASSESSMENT: Please see below. 1. Failure to thrive 2. Anasarca 3. Chronic anemia 4. COPD PLAN: 1. Will discuss with family possible discharge, recommend Hospice referral 2. Prognosis is poor given the patient unwillingness to eat and take medications. Plan and coordination of the patient's care discussed in the presence of Research Interviewer and nurse. SCRIBED BY: JANICE MACHADO [employer] scribed while in presence of service performed by Dr. Caicedo/Kayleigh Gupta APRN on 11/16/21 ([id number])
[2021-11-16] MEDS: LIPITOR PO SCH (20:13)
[2021-11-17 05:34] VITALS: BP 123/59; TEMP 97.6
[2021-11-17] MEDS: PROTONIX PO SCH (05:37)
[2021-11-17] MEDS: FERROUS SULFATE PO SCH (05:37)
[2021-11-17 05:55] LABS: BASOPHILS % (AUTO) 0.5 % (0.0-3.0); EOSINOPHILS # (AUTO) 0.1 K/ul (0.0-0.7); EOSINOPHILS % (AUTO) 1.3 % (0.0-7.0); HEMATOCRIT 27.7 % (37.0-47.0); HEMOGLOBIN 8.8 g/dl (12.0-16.0); IMMATURE GRANULOCYTE # (AUTO) 0.1 (0.0-1.0); IMMATURE GRANULOCYTE % (AUTO) 0.8 % (0.0-5.0); LYMPHOCYTES # (AUTO) 1.4 K/uL (0.60-3.4); LYMPHOCYTES % (AUTO) 22.5 (10.0-50.0); MEAN CORPUSCULAR HEMOGLOBIN 29.6 pg (27.0-31.0); MEAN CORPUSCULAR HGB CONC 31.8 (31.8-35.4); MEAN CORPUSCULAR VOLUME 93.3 fl (81.0-99.0); MONOCYTES # (AUTO) 0.8 K/uL (0.4-2.0); NEUTROPHILS # (AUTO) 3.7 K/ul (2.0-6.9); NEUTROPHILS % (AUTO) 61.9 % (42.2-75.2); PLATELET COUNT 262 10^3/uL (140-440); RDW COEFFICIENT OF VARIATION 14.1 % (11.6-14.8); RED BLOOD COUNT 2.97 10^6/ul (4.20-5.40); WHITE BLOOD COUNT 5.99 K/ul (4.6-10.2)
[2021-11-17 06:13] LABS: ALANINE AMINOTRANSFERASE 8.3 U/L (0-35); ALBUMIN 2.26 g/dL (3.5-5.0); ALKALINE PHOSPHATASE 83.7 U/L (53-141); ASPARTATE AMINO TRANSFERASE 18.3 U/L (14-36); BILIRUBIN,TOTAL 0.22 mg/dL (0.2-1.3); BLOOD UREA NITROGEN 11.8 mg/dL (7-17); CALCIUM 7.82 mg/dL (8.4-10.2); CARBON DIOXIDE 20.7 mmol/L (22-30.0); CHLORIDE 110.5 mmol/L (98-107); CREATININE 0.61 mg/dL (0.60-1.30); GLUCOSE 76.1 mg/dL (74-106); POTASSIUM 3.76 mmol/L (3.5-5.1); SODIUM 134.3 mmol/L (134.5-145); TOTAL PROTEIN 5.36 g/dL (6.3-8.2)
--- NOTE | 2021-11-17 09:32 | PCM.PROG ---
Attending Provider: ATTENDING PROVIDER: Dr. BART CAICEDO DATE OF SERVICE: 11/17/21 SUBJECTIVE: This 81 year old /WHITE F was hospitalized 11/09/21 with acute gastritis, dehydration and hypotension. The patient has leg pain and generalized aches. Oral intake is poor and declined overall general health. REVIEW OF SYSTEMS: CONSTITUTIONAL: No night sweats. No fatigue, malaise, lethargy. No fever or chills. HEENT: Eyes: No visual changes. No eye pain. No eye discharge. ENT: No runny nose. No epistaxis. No sinus pain. No odynophagia. No congestion. RESPIRATORY: No cough, no congestion. No hemoptysis. No shortness of breath. CARDIOVASCULAR: No angina symptoms. No CHF symptoms. No atypical chest pain for CAD. No palpitations. No orthopnea.. GASTROINTESTINAL: No abdominal pain. No nausea or vomiting. No diarrhea or constipation. No hematemesis. No hematochezia. Poor appetite. GENITOURINARY: No urgency. No frequency. No dysuria. No hematuria. No obstructive symptoms. No discharge. No pain. No significant abnormal bleeding. MUSCULOSKELETAL: No musculoskeletal pain; no joint swelling. No strength. Needs help in all aspects of activities of daily living. NEUROLOGICAL: No headache. No neck pain. No syncope. No seizures. No dizziness. PSYCHIATRIC: Not anxious. No depression. No suicidal thoughts. No homicidal thoughts. SKIN: No rash. No lesions. No wounds. ENDOCRINE: No unexplained weight loss. No weight gain. HEMATOLOGIC/LYMPHATIC: No anemia. No purpura. No petechiae. No prolonged or excessive bleeding. No palpable lymph nodes. PHYSICAL EXAMINATION: GENERAL: The patient is awake, alert and oriented, lying in bed in no distress. VITAL SIGNS: Temperature 97.6 F, Pulse 68, Respiratory Rate 14, BP 123/59, Pulse Ox 93% HEENT: Head normocephalic, atraumatic. Eyes: Extraocular muscles are intact. Pupils are equal, round and reactive to light and accommodation. Ears: No lesions. Nose appeared normal. Throat: No exudate or erythema. NECK: Supple. No JVD, no carotid bruit. No lymphadenopathy or thyromegaly. LUNGS: Clear to auscultation. Percussion note normal. Chest symmetrical. HEART: S1, S2, no S3. No murmurs. No cyanosis or clubbing. No ascites. Pulses: Dorsalis pedis and posterior tibial pulses +1 to +2 both sides. ABDOMEN: Soft. Non-tender. Bowel sounds active. No CVA tenderness. No mass felt. EXTREMITIES: Swelling right upper extremities and lower extremities. Full range of motion of all extremities, equal. NEUROLOGIC: No focal deficit. Cranial nerves II through XII are grossly intact. No headache, no double vision or headache. SKIN: Warm and dry. Intact. Turgor-normal. Pale. LYMPHATIC: No palpable lymph nodes/no lymphedema. MUSCULOSKELETAL: Normal joints with no swelling. Muscle tone is normal. LAB REVIEW: 11/17/21 04:52 11/17/21 04:52 11/17/21 04:52: Sodium 134.3 L, Potassium 3.76, Chloride 110.5 H, Carbon Dioxide 20.7 L, Anion Gap 6.86, BUN 11.8, Creatinine 0.61, Estimated GFR (MDRD) 95.00, BUN/Creatinine Ratio 19.34, Glucose 76.1, Calcium 7.82 L, Total Bilirubin 0.22, AST 18.3, ALT 8.3, Alkaline Phosphatase 83.7, Total Protein 5.36 L, Albumin 2.26 L, Globulin 3.10, Albumin/Globulin Ratio 0.72 11/17/21 04:52: WBC 5.99, RBC 2.97 L, Hgb 8.8 L, Hct 27.7 L, MCV 93.3, MCH 29.6, MCHC 31.8, RDW Coeff of Breanne 14.1, Plt Count 262, Immature Gran % (Auto) 0.8, Neut % (Auto) 61.9, Lymph % (Auto) 22.5, [place] % (Auto) 13.0 H, Eos % (Auto) 1.3, Baso % (Auto) 0.5, Neut # (Auto) 3.7, Lymph # (Auto) 1.4, [place] # (Auto) 0.8, Eos # (Auto) 0.1, Baso # (Auto) 0.0, Immature Gran # (Auto) 0.1 ASSESSMENT: Please see below. 1. Dehydration 2. Hypertension resolved. Overall status continues to deteriorate with poor appetite and failure to thrive. 3. Multiple medication problems with chronic anemia. PLAN: 1. With all the discussion during the hospital stay with daughter and the patient they have decided to go on Hospice residual. She will continue on all her medications. 2. Metformin will be discontinued. 3. Vasotec will be discontinued 4. Reduce Losartan to 50mg once a day 5. Continue rest of the medication as before 6. Discontinue Atorvastatin 7. The patient is going to be on Hospice. Plan and coordination of the patient's care discussed in the presence of [employer] T[employer] and nurse. CONDITION: Stable PROGNOSIS: POOR SCRIBED BY: Stephanie GOTTLIEB scribed while in presence of service performed by Dr. BART CAICEDO on 11/17/21 ([id number])
[2021-11-17] MEDS: SYMBICORT 160-4.5 MCG INHALER IH SCH (09:41)
[2021-11-17] MEDS: NYSTOP POWDER TP SCH (09:41)
[2021-11-17] MEDS: ULTRAM PO SCH (09:42)
[2021-11-17] MEDS: PLAVIX PO SCH (09:42)
[2021-11-17] MEDS: MULTIVITAMIN TABLET PO SCH (09:42)
[2021-11-17] MEDS: COLACE PO SCH (09:42)
[2021-11-17] MEDS: COREG PO SCH (09:42)
[2021-11-17] MEDS: VITAMIN D PO SCH (09:42)
[2021-11-17] MEDS: K-DUR PO SCH (09:42)
[2021-11-17] MEDS: COZAAR PO SCH (09:42)
[2021-11-17] MEDS: PHENOBARBITAL PO SCH (09:43)
[2021-11-17] MEDS: LEXAPRO PO SCH (09:43)
--- NOTE | 2021-11-17 11:13 | PN ---
DATE OF SERVICE: 11/16/21 SUBJECTIVE: 81 year old white female hospitalized with dehydration and bronchitis, hypotension. The patient's condition has improved. She is more alert. Appetite seems to have improved. The patient's overall status has deteriorated. She has multiple medical problems. She is seen with Nurse Practitioner. She is going to be discharged home on Hospice. TIME SPENT: More than 30 minutes. Plan and coordination of the patient's care discussed in the presence of nurse. SHREYA
--- NOTE | 2021-11-17 11:16 | PN ---
DATE OF SERVICE: 11/15/21 SUBJECTIVE: 81 year old white female hospitalized with dehydration, bronchitis and hypotension. The patient's oral status has improved. She is able to eat some but still requires help. Daughter has agreed for Hospice. REVIEW OF SYSTEMS: CONSTITUTIONAL: No night sweats. No fatigue, malaise, lethargy. No fever or chills. HEENT: Eyes: No visual changes. No eye pain. No eye discharge. ENT: No runny nose. No epistaxis. No sinus pain. No sore throat. No odynophagia. No congestion. RESPIRATORY: No cough, no congestion. No hemoptysis. No shortness of breath. CARDIOVASCULAR: No angina symptoms. No CHF symptoms. No atypical chest pain for CAD. No palpitations. No PND. No orthopnea. GASTROINTESTINAL: No abdominal pain. No nausea or vomiting. No diarrhea or constipation. No hematemesis. No hematochezia. GENITOURINARY: No urgency. No frequency. No dysuria. No hematuria. No obstructive symptoms. No discharge. No pain. No significant abnormal bleeding. MUSCULOSKELETAL: No musculoskeletal pain; no joint swelling. NEUROLOGICAL: No headache. No neck pain. No syncope. No seizures. No dizziness. PSYCHIATRIC: Not anxious. No depression. No suicidal thoughts. No homicidal thoughts. SKIN: No rash. No lesions. No wounds. ENDOCRINE: No unexplained weight loss. No weight gain. HEMATOLOGIC/LYMPHATIC: No anemia. No purpura. No petechiae. No prolonged or excessive bleeding. No palpable lymph nodes. PHYSICAL EXAMINATION: HEENT: Head normocephalic, atraumatic. Eyes: Extraocular muscles are intact. Pupils are equal, round and reactive to light and accommodation. Ears: No lesions. Nose appeared normal. Throat: No exudate or erythema. NECK: Supple. No JVD, no carotid bruit. No lymphadenopathy or thyromegaly. LUNGS: Decreased breath sounds but clear to auscultation. Percussion note normal. Chest symmetrical. HEART: S1, S2, no S3. No murmurs. No cyanosis or clubbing. No ascites. Pulses: Dorsalis pedis and posterior tibial pulses +1 to +2 bilaterally. ABDOMEN: Soft. Nontender. Bowel sounds active. No CVA tenderness. No mass felt. EXTREMITIES: No edema. Full range of motion of all extremities, equal. NEUROLOGIC: No focal deficit. Cranial nerves II through XII are grossly intact. No headache. No double vision. SKIN: Not dry. Intact. Turgor - normal. LYMPHATIC: No palpable lymph nodes/no lymphedema. MUSCULOSKELETAL: Normal joints with no swelling. Muscle tone is normal. LABS: hgb 8.7, hct 27, WBC 5,200 normal differential, creatinine 0.7, BUN 9, potassium 3.6 ASSESSMENT: 1. Dehydration, resolved 2. Gastritis, resolved 3. Hypotension, resolved 4. Dementia 5. Weakness PLAN: 1. Discharge the patient to Assisted tomorrow 2. Continue the rest of the medications TIME SPENT: More than 30 minutes. Plan and coordination of the patient's care discussed in the presence of nurse. SHREYA
--- NOTE | 2021-11-17 13:20 | PN ---
DATE OF SERVICE: 11/14/21 SUBJECTIVE: The patient was seen and examined with the Nurse Practitioner. The patient's condition is stable. She is going to be discharged. Condition stable. She is going to be on Hospice. Discussed with the family. TIME SPENT: More than 30 minutes. Plan and coordination of the patient's care discussed in the presence of nurse. SHREYA
--- NOTE | 2021-11-17 14:41 | PN ---
DATE OF SERVICE: 11/13/21 SUBJECTIVE: The patient was seen and examined with the Nurse Practitioner. The patient's condition has improved some. Daughter is there and they have agreed to have some Hospice. Cardiovascular and respiratory status is stable. Prognosis is guarded. TIME SPENT: More than 30 minutes. Plan and coordination of the patient's care discussed in the presence of nurse. SHREYA
--- NOTE | 2021-11-20 11:00 | PN ---
DATE OF SERVICE: 11/12/21 SUBJECTIVE: 81 year old white female hospitalized with dehydration, gastritis, hypotension. The patient's condition seems to have improved. She wants to eat, she was able to feed herself but today she says that she needs help and she is hungry and she likes the food. REVIEW OF SYSTEMS: CONSTITUTIONAL: No night sweats. No fatigue, malaise, lethargy. No fever or chills. HEENT: Eyes: No visual changes. No eye pain. No eye discharge. ENT: No runny nose. No epistaxis. No sinus pain. No sore throat. No odynophagia. No congestion. RESPIRATORY: No cough, no congestion. No hemoptysis. No shortness of breath. CARDIOVASCULAR: No angina symptoms. No CHF symptoms. No atypical chest pain for CAD. No palpitations. No PND. No orthopnea. GASTROINTESTINAL: No abdominal pain. No nausea or vomiting. No diarrhea or constipation. No hematemesis. No hematochezia. Appetite has improved. GENITOURINARY: No urgency. No frequency. No dysuria. No hematuria. No obstructive symptoms. No discharge. No pain. No significant abnormal bleeding. MUSCULOSKELETAL: No musculoskeletal pain; no joint swelling. NEUROLOGICAL: No headache. No neck pain. No syncope. No seizures. No dizziness. PSYCHIATRIC: Not anxious. No depression. No suicidal thoughts. No homicidal thoughts. SKIN: No rash. No lesions. No wounds. ENDOCRINE: No unexplained weight loss. No weight gain. HEMATOLOGIC/LYMPHATIC: No anemia. No purpura. No petechiae. No prolonged or excessive bleeding. No palpable lymph nodes. PHYSICAL EXAMINATION: VITAL SIGNS: Temperature 97.7, pulse 80, respiratory rate 16, blood pressure 166/70 and pulse ox 93%. HEENT: Head normocephalic, atraumatic. Eyes: Extraocular muscles are intact. Pupils are equal, round and reactive to light and accommodation. Ears: No lesions. Nose appeared normal. Throat: No exudate or erythema. NECK: Supple. No JVD, no carotid bruit. No lymphadenopathy or thyromegaly. LUNGS: Decreased breath sounds but clear to auscultation. Percussion note normal. Chest symmetrical. HEART: S1, S2, no S3. No murmurs. No cyanosis or clubbing. No ascites. Pulses: Dorsalis pedis and posterior tibial pulses +1 to +2 bilaterally. ABDOMEN: Soft. Nontender. Bowel sounds active. No CVA tenderness. No mass felt. EXTREMITIES: No edema. Full range of motion of all extremities, equal. NEUROLOGIC: No focal deficit. Cranial nerves II through XII are grossly intact. No headache. No double vision. SKIN: Not dry. Intact. Turgor - normal. LYMPHATIC: No palpable lymph nodes/no lymphedema. MUSCULOSKELETAL: Normal joints with no swelling. Muscle tone is normal. LABS: hgb 9.*9, hct 31, WBC 6,000 normal differential, creatinine 0.7, BUN 11, potassium 4.5 ASSESSMENT: 1. Dehydration, resolved skin turgor a lot better 2. Anemia, chronic 3. Gastritis has resolved 4. Hypotension, resolved PLAN: 1. Discontinue Metformin 2. Increase Coreg to 25mg twice a day 3. New medication Cozaar 50mg twice a day 4. Methylphenobarbital level still pending 5. Encourage the patient to eat. TIME SPENT: More than 30 minutes. Plan and coordination of the patient's care discussed in the presence of nurse. SHREYA
--- NOTE | 2021-12-01 14:54 | DS ---
DATE OF SERVICE: 11/17/21 FINAL DIAGNOSIS: 1. DEHYDRATION 2. ACUTE GASTRITIS 3. HYPOTENSION 4. CHRONIC ANEMIA 5. DEMENTIA 6. GENERALIZED PAIN DISCHARGE INSTRUCTIONS: DISCHARGE HOME TODAY WITH RESIDENTIAL HOSPICE. DÍAZ CATHETER WILL BE LEFT IN FOR PATIENT COMFORT. MEDICATIONS AT DISCHARGE: MULTIVITAMIN ONE CAPSULE PO DAILY COLACE 100MG PO BID PLAVIX 75MG PO DAILY FEOSOL 325MG PO DAILY TYLENOL 650MG PO ONCE PRN VITAMIN D3 50MCG PO DAILY LEXAPRO 10MG PO DAILY PROTONIX 40MG PO BID SYMBICORT TWO INHALATION BID LASIX 20MG PO DAILY NYSTOP ONE APPLICATION TID PHENOBARBITAL 64.8MG PO BID K-TAB 20MEQ PO BID TRAMADOL 50MG PO BID CARVEDILOL 12.5MG PO BID UNITHROID 50MCG PO DAILY NEW PRESCRIPTIONS: LOSARTAN 50MG PO DAILY DISCONTINUED MEDICATIONS: METFORMIN VASOTEC ATORVASTATIN DIET INSTRUCTIONS: CONTINUE REGULAR DIET. TRY TO EAT SMALL, FREQUENT MEALS IF ABLE. ACTIVITY: TOLERATED HOSPITAL COURSE: THIS IS A 81 YEAR OLD WHITE FEMALE WHO WAS ADMITTED TO THE OFFICE. SHE HAD COVID SEVERAL MONTHS AGO WITH GENERALIZED WEAKNESS. SHE HAD GONE HOME AND WAS LIVING WITH HER DAUGHTER. SHE HAD A BRIEF STENT IN THE [place] AND THEY DID NOT WISH FOR HER TO GO BACK. SHE IS REQUIRING ASSISTANCE WITH ALL ADL'S. OVER THE PAST WEEK OR TWO SHE HAS STEADILY WORSENED BECOMING INCREASINGLY WEAKNER. SHE IS NOT EATING OR DRINKING VERY MUCH. SHE IS COMPLAINING OF GENERALIZED PAIN. SHE HAD HAD SOME VOMITING AT HOME. BLOOD PRESSURE WAS LOW. SHE WAS ADMITTED AND PLACED ON ROUTINE TELEMETRY ORDERS WITH CBC AND CMP. KIDNEY FUNCTION WAS SLIGHTLY ELEVATED. SHE WAS STARTED ON NORMAL SALINE IV AT 100CC AN HOUR TIMES 12 HOURS AND THEN 75CC AN HOUR. GIVEN 1CC DECADRON IM INITIALLY AND STARTED ON ZOFRAN 4MG IV Q 6 HOURS. WE HELD HER LASIX. HOME MEDICATIONS WERE CONTINUED. FENOBARBITAL LEVEL WAS WITHIN NORMAL LIMITS. U/A AND CHEST X-RAY WERE BOTH DONE. CHEST X-RAY SHOWED PULMONARY FIBROSIS WHICH HAS BEEN CONSISTENT SINCE SHE HAD COVID PNEUMONIA. WHILE BEING ADMITTED HER RENAL FUNCTION IMPROVED WITH IV FLUIDS. HOWEVER HER PO INTAKE HAS STILL REMAINED POOR. BLOOD PRESSURE BECOME STABLE. SHE REFUSES TO EAT AND SHE REFUSES TO GET UP WITH PHYSICAL THERAPY. SHE COMPLAINS OF PAIN. HGB REMAINED UNCHANGED. SHE DOES HAVE CHRONIC ANEMIA. AFTER LONG DISCUSSION WITH BOTH THE PATIENT AND FAMILY SHE STATES THAT SHE DOES NOT WISH TO BE IN THE HOSPITAL AND SHE WAS JUST WANTS TO GO HOME. SHE DOESN'T WANT TO COME BACK TO THE HOSPITAL. SHE DOESN'T WANT TO TAKE HER MEDICATIONS. SHE DOESN'T FEEL LIKE EATING. WE HAVE DECIDED THAT HOSPICE WOULD BE THE BEST OPTION FOR HER AT THIS TIME. SHE STATES THAT SHE IS TIRED. WITH THE HYPOTENSION WE REDUCED HER LOSARTAN 50MG ONCE A DAY. WE DISCONTINUE HER METFORMIN. THE REST OF THE MEDICATIONS IS CONTINUED BEFORE AND WE HAVE CONSULTED [facility]. SHE WILL BE GOING HOME TO HER DAUGHTERS HOUSE AND WE WILL FOLLOWUP WITH HER NEEDED. HER PROGNOSIS IS POOR GIVEN THE FACT THAT SHE IS NOT EATING OR DRINKING AND IS REFUSING TO TAKE HER MEDICATIONS. TIME SPENT: More than 60 minutes. SHREYA
== END 2021-11-17 13:45 | disposition hospice, home (50) | DRG 315 ==
LOC: LAB 11:11 → MEDSURG A 12:17
PROVIDERS: ADMIT Internal Medicine; ATTEND Internal Medicine
DX: J44.9 Chronic obstructive pulmonary disease, unspecified; I65.22 Occlusion and stenosis of left carotid artery; R60.9 Edema, unspecified; E55.9 Vitamin D deficiency, unspecified; I10 Essential (primary) hypertension; K29.00 Acute gastritis without bleeding; Z86.16 Personal history of COVID-19; Z79.899 Other long term (current) drug therapy; R26.81 Unsteadiness on feet; R06.02 Shortness of breath; R63.0 Anorexia; R05.9 Cough, unspecified; G40.89 Other seizures; Z20.822 Contact with and (suspected) exposure to COVID-19; E03.9 Hypothyroidism, unspecified; G89.29 Other chronic pain; E78.5 Hyperlipidemia, unspecified; R27.0 Ataxia, unspecified; I73.9 Peripheral vascular disease, unspecified; M51.36 Other intervertebral disc degeneration, lumbar region; Z99.81 Dependence on supplemental oxygen; D64.9 Anemia, unspecified; F03.90 Unspecified dementia, unspecified severity, without behavioral disturbance, psychotic disturbance, mood disturbance, and anxiety; E11.9 Type 2 diabetes mellitus without complications; I25.10 Atherosclerotic heart disease of native coronary artery without angina pectoris; E86.0 Dehydration; M62.81 Muscle weakness (generalized); I95.9 Hypotension, unspecified